=== PATIENT | male | born 1940 | race Caucasian/White ===

== ENCOUNTER 2016-09-21 08:34 | Emergency (ER) | payer OTHER ==
[2016-09-21] MEDS ORDERED: DUONEB (A & A) ONE (09:29)
[2016-09-21 09:35] LABS: BE 7.1 mmoll (-3.0-3.0); BLOOD TYPE ARTERIAL; DRAW SITE R RADIAL; METHB 0.9 % (0.0-1.5); O2(CT) 16.6 mL/dL (15.0-23.0); PO2(98.6) 89 mmHg (60-100); SAMPLE BLOOD; SAO2 98.2 % (95.0-100.0); THB 12.3 g/dL (11.5-17.4)
[2016-09-21 09:39] LABS: ALLEN TEST YES; MODALITY CANNULA; PCO2(98.6) 54 mmHg (35-45)
[2016-09-21] MEDS ORDERED: DUONEB (A & A) INH ONE (09:41)
--- NOTE | 2016-09-21 09:54 | PROVIDER DOCUMENTATION ---
HPI-Respiratory General - General Source: patient, family () - History of Present Illness-Resp Quality of Pain: reports: aching Severity in ED: reports: mild Onset/Duration: reports: 24 hours ago Timing: reports: still present, getting worse Exposure: reports: unknown cause Cough Quality/Degree: reports: moderate Episode Frequency: occasional episodes Current Respiratory Medication Therapy: Initiated see nurses note Modifying Factors: improves with: nothing Associated Symptoms: reports: cough, shortness of breath, wheezing. denies: chest pain/soreness, dizziness, earache, facial pain, fever/chills, flu-like symptoms, headache, heart racing, hurts to breathe, hyperventilating, lightheadedness, muscle/bodyaches, nasal congestion, nasal drainage, sinus pain , short of breath, sore throat, sweaty Similar Symptoms Previously?: Yes Recently seen or treated by another doctor?: No <Kellen Lewis - Last Filed: 09/21/16 11:19> <Kuldip Tafoya - Last Filed: 09/21/16 11:24> - General Chief Complaint: Shortness of Breath Stated Complaint: SOB/COUGH Time Seen by Provider: 09/21/16 09:19 Allergies/Adverse Reactions: Patient Allergies Allergy/AdvReac Type Severity Reaction Status Date / Time Penicillins Allergy Mild RASH Verified 06/21/16 05:45 Home Medications: Home Medication List Medication Instructions Recorded Confirmed Last Taken Type PRAVAstatin [Pravachol] 40 mg PO QHS 11/18/12 05/22/16 1 Day Ago History Albuterol Sulfate [Proair Hfa] 8.5 gm IH Q4H 01/23/13 05/22/16 1 Day Ago History Allopurinol 100 mg PO DAILY 07/05/15 05/22/16 1 Day Ago History Apixaban [Eliquis] 2.5 mg PO BID 07/05/15 05/22/16 1 Day Ago History Atenolol [Tenormin] 50 mg PO BID 05/16/16 05/22/16 1 Day Ago History Glipizide 10 mg PO BID 05/16/16 05/22/16 1 Day Ago History Lisinopril/Hydrochlorothiazide 1 each PO DAILY 05/16/16 05/22/16 1 Day Ago History [Lisinopril-Hctz 20-25 mg Tab] Metformin HCl 1 tab PO BID 05/16/16 05/22/16 1 Day Ago History Nitroglycerin Sl [Nitroglycerin] 1 tab SL PRN PRN MDD 3 05/16/16 05/22/16 Unknown History Sitagliptin Phosphate [Januvia] 100 mg PO DAILY 05/16/16 05/22/16 1 Day Ago History Albuterol 2.5MG/Ipratrop 0.5MG 3 ml INH RTQ4H #0 neb 05/24/16 1 Day Ago Rx [Duoneb (A & A)] Azithromycin [Zithromax Z-Joe] 250 mg PO DIRECTED #1 pkg 06/21/16 Unknown Rx Hydrocodone/APAP 7.5 mg/325 mg 1 tab PO Q8H 06/21/16 06/21/16 1 Day Ago History [Barton-7.5] Azithromycin [Zithromax Z-Joe] 250 mg PO DIRECTED #1 pkg 09/21/16 Unknown Rx Guaifenesin/Codeine [Robitussin-AC] 10 ml PO Q4H PRN PRN #8 oz 09/21/16 Unknown Rx - History of Present Illness-Resp Nature of Presenting Problem: Pt is 76 y/o M presents to the ED with SOB. Pt states prior SOB but it has worsened since yesterday. Pt denies F. Pt states hx of lung cancer and COPD. Pt states home O2 and nebs. Pt states cough. (Kellen Lewis) Review of Systems - Adult - REVIEW OF SYSTEMS - ADULT Constitutional: denies: chills, fever Eyes: denies: blurred vision, double vision Ears, Nose, Mouth & Throat: denies: ear pain, nose pain, mouth swelling, throat pain Cardiovascular: denies: chest pain, heart murmur, irregular heart rate Respiratory: reports: cough, shortness of breath, wheezing Gastrointestinal: denies: abdominal pain, diarrhea, nausea, vomiting Genitourinary: denies: dysuria, hematuria Musculoskeletal: denies: bone pain, joint pain, neck pain Integumentary: denies: hives, itching Neurological: denies: dizziness/vertigo, headache/migraines Psychiatric: reports: no symptoms reported Endocrine: reports: no symptoms reported Hematologic/Lymphatic: reports: no symptoms reported Allergic/Immunologic: reports: no symptoms reported All Other Systems: Reviewed and Negative <Betty Lewisomi - Last Filed: 09/21/16 11:19> Past History - Adult - PAST MEDICAL HISTORY-ADULT Review of Records: reports: Nursing Assessment Review, Medications Reviewed, Social history reviewed & non-contributory. Major Childhood Illnesses: reports: denies history Cardiovascular: reports: A-Fib, HTN, hyperlipidemia Respiratory: reports: asthma, COPD, cancer (lung cancer) Gastrointestinal: reports: denies history Obstetrical/Gynecological: reports: denies history Genitourinary: reports: denies history Musculoskeletal: reports: denies history Neurological: reports: denies history Endocrine/Immune: reports: Diabetes Other Conditions: reports: denies history - PRIOR SURGERIES/PROCEDURES Surgical/Procedure History: reports: CABG (x3), cholecystectomy - IMMUNIZATION STATUS Childhood Immunizations: See Nurse Assessment Flu Vaccine: See Nurse Assessment - FAMILY HISTORY Family History: reviewed, not pertinent - SOCIAL HISTORY Smoking: quit greater than 1 year, cigarettes Substance Use: denies Living Situation: family <Betty Lewisomi - Last Filed: 09/21/16 11:19> Physical Exam-General - PHYSICAL EXAM-ADULT Initial Vital Signs Reviewed: Yes - CONSTITUTIONAL General Appearance: appears well, alert, mild distress - EYES Eyes: PERRL/EOMI, pink conjunctivae, fundi clear, no AV nicking - HEAD, EARS, NOSE, MOUTH & THROAT HENMT: normocephalic/atraumatic, moist mucous membranes, normal ENT inspection, TMs normal, pharynx normal - NECK Neck: non-tender, full range of motion, supple, normal inspection - RESPIRATORY Respiratory: chest non-tender, no pleuratic chest pain, no respiratory distress , no accessory muscle use, wheezing, increased rate - CARDIOVASCULAR Cardiovascular: normal peripheral pulses, regular rate, rhythm, no edema, no gallop, no JVD, no murmur - GASTROINTESTINAL (ABDOMEN) Abdominal Exam: normal bowel sounds, non tender, soft, no organomegaly, no pulsatile mass, distended - LYMPHATIC Lymphatic: no adenopathy - MUSCULOSKELETAL Back Exam: normal inspection, no CVA tenderness, no vertebral tenderness Extremity: normal range of motion, non-tender, no calf tenderness, normal capillary refill, pedal edema (bilateral) - SKIN Integumentary: normal color, normal turgor, warm/dry, other (psoriasis) - NEUROLOGIC Neurologic: grossly normal - PSYCHIATRIC Psych/Mental Status: normal mood/affect, oriented x 3 <Kellen Lewis - Last Filed: 09/21/16 11:19> Progress - XRAY 1 XRAY: Bilateral XRAY Study: Chest Impression: Abnormal XRAY Interpretation: improved cmg and edema since 06-21-16 <Kellen Lewis - Last Filed: 09/21/16 11:19> <Kuldip Tafoya - Last Filed: 09/21/16 11:24> - PLAN OF CARE/RESULTS Progress/Plan/Lab Results: Laboratory Tests 09/21/16 09:19 Specimen Type ARTERIAL Sample Site R RADIAL pH 7.40 pCO2 54 H* pO2 89 HCO3 30.4 H Base Excess 7.1 H Oxyhemoglobin 95.3 ABG O2 Sat (Calculated) 16.6 ABG O2 Saturation 98.2 ABG Carboxyhemoglobin 2.10 ABG Methemoglobin 0.9 Sam Test YES A-a O2 Difference 43.0 Total Hemoglobin 12.3 Lactate 3.50 H Liter Flow 2.0 Blood Gas Modality CANNULA FiO2 % 28.0 Orders Category Date Time Status CHEST-2 VIEWS [RAD] Stat Exams 09/21/16 09:21 Ordered ABG [RESP] Routine Lab 09/21/16 09:19 Completed CBC WITH DIFF [HEME] Stat Lab 09/21/16 09:19 Ordered CK PROFILE [SP CHEM] Stat Lab 09/21/16 09:21 Ordered COMPREHENSIVE METABOLIC PANEL [CHEM] Stat Lab 09/21/16 09:20 Ordered PRO B-NATRIURETIC PEPTIDE Stat Lab 09/21/16 09:21 Ordered TROPONIN T Stat Lab 09/21/16 09:20 Ordered Albuterol 2.5MG/Ipratrop 0.5MG [Duoneb (A & A)] Med 09/21/16 09:29 Discontinued 9 ml .ROUTE .STK-MED ONE Albuterol 2.5MG/Ipratrop 0.5MG [Duoneb (A & A)] Med 09/21/16 09:41 Discontinued 9 ml INH NOW ONE Aerosol Treatments Stat Oth 09/21/16 09:41 Completed Vital Signs - 24 hr 09/21/16 09/21/16 08:44 09:40 Pulse Rate 74 87 Respiratory 18 20 Rate Blood Pressure 121/58 O2 Sat by Pulse 95 Oximetry Laboratory Tests 09/21/16 09/21/16 09/21/16 09:19 10:09 10:09 WBC 3.96 L RBC 3.86 L Hgb 12.4 L Hct 37.5 L MCV 97.2 MCH 32.1 H MCHC 33.1 RDW Std Deviation 14.0 Plt Count 95 L MPV 11.8 H Immature Gran % (Auto) 0.3 Neut % (Auto) 62.8 Lymph % (Auto) 17.4 L Jackson % (Auto) 17.2 H Eos % (Auto) 1.8 Baso % (Auto) 0.5 Immature Gran # (Auto) 0.01 Neut # (Auto) 2.49 Lymph # (Auto) 0.69 L Jackson # (Auto) 0.68 H Eos # (Auto) 0.07 Baso # (Auto) 0.02 Specimen Type ARTERIAL Sample Site R RADIAL pH 7.40 pCO2 54 H* pO2 89 HCO3 30.4 H Base Excess 7.1 H Oxyhemoglobin 95.3 ABG O2 Sat (Calculated) 16.6 ABG O2 Saturation 98.2 ABG Carboxyhemoglobin 2.10 ABG Methemoglobin 0.9 Sam Test YES A-a O2 Difference 43.0 Total Hemoglobin 12.3 Lactate 3.50 H Liter Flow 2.0 Blood Gas Modality CANNULA FiO2 % 28.0 Sodium 137 Potassium 3.7 Chloride 98 Carbon Dioxide 28 Anion Gap 11 BUN 15 Creatinine 0.7 Estimated GFR/1.73 m2 > 60 BUN/Creatinine Ratio 21 Glucose 226 H Calculated Osmolality 282 Calcium 9.0 Total Bilirubin 0.50 AST 53 H ALT 28 Alkaline Phosphatase 89 Creatine Kinase Troponin T Iec-D-Nmdyjegafho Pept Total Protein 6.8 Albumin 3.6 Globulin 3.0 Albumin/Globulin Ratio 1.0 09/21/16 09/21/16 09/21/16 10:09 10:09 10:09 WBC RBC Hgb Hct MCV MCH MCHC RDW Std Deviation Plt Count MPV Immature Gran % (Auto) Neut % (Auto) Lymph % (Auto) Jackson % (Auto) Eos % (Auto) Baso % (Auto) Immature Gran # (Auto) Neut # (Auto) Lymph # (Auto) Jackson # (Auto) Eos # (Auto) Baso # (Auto) Specimen Type Sample Site pH pCO2 pO2 HCO3 Base Excess Oxyhemoglobin ABG O2 Sat (Calculated) ABG O2 Saturation ABG Carboxyhemoglobin ABG Methemoglobin Sam Test A-a O2 Difference Total Hemoglobin Lactate Liter Flow Blood Gas Modality FiO2 % Sodium Potassium Chloride Carbon Dioxide Anion Gap BUN Creatinine Estimated GFR/1.73 m2 BUN/Creatinine Ratio Glucose Calculated Osmolality Calcium Total Bilirubin AST ALT Alkaline Phosphatase Creatine Kinase 68 Troponin T < 0.010 Pje-K-Lsuntpjrsfb Pept 125 Total Protein Albumin Globulin Albumin/Globulin Ratio (Kellen Lewis) Departure <Kellen Lewis - Last Filed: 09/21/16 11:19> - Departure Time of Disposition Order: 11:23 Certified Medical Emergency: Emergent <Kuldip Tafoya - Last Filed: 09/21/16 11:24> - Departure DIAGNOSIS: COPD (chronic obstructive pulmonary disease) Qualifiers: COPD type: chronic bronchitis Chronic bronchitis type: simple Qualified Code(s) : J41.0 - Simple chronic bronchitis Disposition: HOME 01 Condition: Stable Additional Instructions: ED Follow Up Instructions: You have been treated by a care provider in the Emergency Department. These instructions are being provided to you so you can have an understanding of how to care for yourself upon discharge. Upon discharge from the Emergency Department, you are responsible for making arrangements for follow-up care by a physician of your choice. Take all prescribed medications as directed. Return to the Emergency Department immediately for any new or worsening symptoms. You may call the Physician Referral phone number at [phone] to obtain a list of Physicians who are taking new patients. Prescriptions: Guaifenesin/Codeine [Robitussin-AC] 10 ml PO Q4H PRN PRN #8 oz PRN Reason: Cough Azithromycin [Zithromax Z-Joe] 250 mg PO DIRECTED #1 pkg Referrals: Marya Longoria MD [Primary Care Provider] - Attestation - Scribe Verification/Attestation Scribe:: Kellen Lewis Acting as Scribe for:: Kuldip Tafoya Scribe documention review:: This chart was documented by a scribe and accurately reflects the service the provider performed and the decisions made by the provider. <Kellen Lewis - Last Filed: 09/21/16 11:19> Physician Attestation
[2016-09-21 10:11] LABS: MANUAL DIFF NEEDED? NO
[2016-09-21 10:20] LABS: BASO% 0.5 % (0.0-0.8); EOS# 0.07 X1000 (0.0-0.7); EOS% 1.8 % (0.0-10.0); HEMATOCRIT 37.5 % (42.0-52.0); HEMOGLOBIN 12.4 g/dL (14.0-18.0); IMM GRAN# 0.01 X1000 (0.0-0.04); IMM GRAN% 0.3 % (0.0-0.5); LYMPH# 0.69 X1000 (1.2-3.4); LYMPH% 17.4 % (20.5-51.1); MCH 32.1 PG (27-31); MCHC 33.1 g/dL (33-37); MCV 97.2 FL (81-99); MONO# 0.68 X1000 (0.11-0.59); MONO% 17.2 % (1.7-9.3); MPV 11.8 FL (7.4-10.4); NEUT% 62.8 % (42.2-75.2); PLT 95 X1000 (130-400); RBC 3.86 XMIL (4.7-6.1)
[2016-09-21 10:34] LABS: AGAP 11; ALBUMIN 3.6 g/dL (3.5-5.0); ALKALINE PHOSPHATASE 89 U/L (32-122); BUN 15 mg/dL (8-22); CHLORIDE 98 mmol/L (98-107); COSMO 282; GOT 53 U/L (10-34); GPT 28 U/L (10-44); POTASSIUM 3.7 mmol/L (3.5-5.1); SODIUM 137 mmol/L (136-145); TCO2 28 mmol/L (25-35); TOTAL PROTEIN 6.8 g/dL (6.3-8.3)
[2016-09-21 11:51] VITALS: BP 114/48
--- NOTE | 2016-09-21 12:06 | Diag Imaging Result Document ---
PROCEDURE NAME: CHEST-2 VIEWS - 09/21/2016 TWO VIEWS OF THE CHEST: FINDINGS: There appears to be some improvement in the cardiomegaly and pulmonary edema, which was present on 06/21/2016. There is still some fibrotic appearing opacity present in the left upper lobe. Impression: Improved pulmonary edema. [facility]
== END 2016-09-21 11:50 | disposition home or self-care (01) ==
LOC: P.ED 08:34
DX: J41.0 Simple chronic bronchitis (principal); R06.02 Shortness of breath; R05 Cough; R06.2 Wheezing; I48.91 Unspecified atrial fibrillation; I10 Essential (primary) hypertension; E78.5 Hyperlipidemia, unspecified; Z85.118 Personal history of other malignant neoplasm of bronchus and lung; Z79.899 Other long term (current) drug therapy; E11.9 Type 2 diabetes mellitus without complications; Z95.1 Presence of aortocoronary bypass graft; Z87.891 Personal history of nicotine dependence; L40.9 Psoriasis, unspecified; Z79.01 Long term (current) use of anticoagulants
CPT/HCPCS: 36415; 71020; 80053; 82550; 82805; 83880; 84484; 85025; 94640; 99283

== ENCOUNTER 2016-09-22 19:45 | Emergency (ER) | payer OTHER ==
[2016-09-22 19:49] VITALS: BP 208/118
[2016-09-22] MEDS ORDERED: ASPIRIN PO STA (20:06)
--- NOTE | 2016-09-22 21:16 | ED EKG INTERP ---
EKG Interpretation - EKG Time of EKG reading by physician:: 21:01 EKG Read and Signed by:: Connor Quintana EKG Interpretation (*Must complete 3 of following elements*): Abnormal Rate: 115 Rhythm: SINUS TACHYCARDIA W/ SHORT CT Homer: left QRS: LVH (WITH REPOLARIZATION ABNORMALITY) CT Interval: shortened Comments: INFERIOR INFARCT
--- NOTE | 2016-09-22 22:04 | PROVIDER DOCUMENTATION ---
HPI-Respiratory General - General Chief Complaint: Shortness of Breath Stated Complaint: SOB Time Seen by Provider: 09/22/16 20:06 Source: patient Allergies/Adverse Reactions: Patient Allergies Allergy/AdvReac Type Severity Reaction Status Date / Time Penicillins Allergy Mild RASH Verified 09/22/16 19:49 Home Medications: Home Medication List Medication Instructions Recorded Confirmed Last Taken Type PRAVAstatin [Pravachol] 40 mg PO QHS 11/18/12 05/22/16 1 Day Ago History Albuterol Sulfate [Proair Hfa] 8.5 gm IH Q4H 01/23/13 05/22/16 1 Day Ago History Allopurinol 100 mg PO DAILY 07/05/15 05/22/16 1 Day Ago History Apixaban [Eliquis] 2.5 mg PO BID 07/05/15 05/22/16 1 Day Ago History Atenolol [Tenormin] 50 mg PO BID 05/16/16 05/22/16 1 Day Ago History Glipizide 10 mg PO BID 05/16/16 05/22/16 1 Day Ago History Lisinopril/Hydrochlorothiazide 1 each PO DAILY 05/16/16 05/22/16 1 Day Ago History [Lisinopril-Hctz 20-25 mg Tab] Metformin HCl 1 tab PO BID 05/16/16 05/22/16 1 Day Ago History Nitroglycerin Sl [Nitroglycerin] 1 tab SL PRN PRN MDD 3 05/16/16 05/22/16 Unknown History Sitagliptin Phosphate [Januvia] 100 mg PO DAILY 05/16/16 05/22/16 1 Day Ago History Albuterol 2.5MG/Ipratrop 0.5MG 3 ml INH RTQ4H #0 neb 05/24/16 1 Day Ago Rx [Duoneb (A & A)] Azithromycin [Zithromax Z-Joe] 250 mg PO DIRECTED #1 pkg 06/21/16 Unknown Rx Hydrocodone/APAP 7.5 mg/325 mg 1 tab PO Q8H 06/21/16 06/21/16 1 Day Ago History [Nursery-7.5] Azithromycin [Zithromax Z-Joe] 250 mg PO DIRECTED #1 pkg 09/21/16 Unknown Rx Guaifenesin/Codeine [Robitussin-AC] 10 ml PO Q4H PRN PRN #8 oz 09/21/16 Unknown Rx Azithromycin [Zithromax Z-Joe] 250 mg PO DIRECTED #1 pkg 09/22/16 Unknown Rx Doxycycline Monohydrate 100 mg PO BID #20 tablet 09/22/16 Unknown Rx - History of Present Illness-Resp Nature of Presenting Problem: 76 YOWM WITH HX OF COPD AND CHF, PRESENTS TO ED WITH C/O PT STATES SOB FOR 3 DAYS NOW. PT STATES HE WAS SEEN IN THE ED YESTERDAY WITH SAME SX. PT STATES HE DIDN'T FEEL LIKE GETTING PRESCRIPTION OF STEROIDS FILLED. Quality of Pain: reports: none Onset/Duration: reports: 3 days ago Timing: reports: still present Cough Quality/Degree: reports: mild, dry cough Associated Symptoms: reports: short of breath Similar Symptoms Previously?: No Recently seen or treated by another doctor?: No Review of Systems - Adult - REVIEW OF SYSTEMS - ADULT Constitutional: reports: fever. denies: chills Eyes: reports: no symptoms reported Ears, Nose, Mouth & Throat: reports: no symptoms reported Cardiovascular: denies: chest pain, palpitations, syncope Respiratory: reports: shortness of breath, wheezing. denies: cough Gastrointestinal: denies: abdominal pain, diarrhea, nausea, vomiting Genitourinary: reports: no symptoms reported Musculoskeletal: denies: back pain, neck pain Integumentary: reports: no symptoms reported Neurological: denies: dizziness/vertigo, headache/migraines, syncope Psychiatric: reports: no symptoms reported Endocrine: reports: no symptoms reported Hematologic/Lymphatic: reports: no symptoms reported Allergic/Immunologic: reports: no symptoms reported All Other Systems: Reviewed and Negative Past History - Adult - PAST MEDICAL HISTORY-ADULT Review of Records: reports: Nursing Assessment Review, Medications Reviewed Cardiovascular: reports: A-Fib, HTN, hyperlipidemia Respiratory: reports: asthma, COPD, cancer (lung cancer) Endocrine/Immune: reports: Diabetes - PRIOR SURGERIES/PROCEDURES Surgical/Procedure History: reports: CABG (x3), cholecystectomy - IMMUNIZATION STATUS Childhood Immunizations: See Nurse Assessment Flu Vaccine: See Nurse Assessment - FAMILY HISTORY Family History: reviewed, not pertinent - SOCIAL HISTORY Smoking: quit less than 1 year, cigarettes Substance Use: denies Alcohol Use Frequency: never Living Situation: family Physical Exam-General - CONSTITUTIONAL General Appearance: alert, moderate distress - EYES Eyes: PERRL/EOMI, pink conjunctivae - HEAD, EARS, NOSE, MOUTH & THROAT HENMT: normocephalic/atraumatic, moist mucous membranes - NECK Neck: non-tender, full range of motion, supple - RESPIRATORY Respiratory: chest non-tender, wheezing - CARDIOVASCULAR Cardiovascular: normal peripheral pulses, tachycardia - GASTROINTESTINAL (ABDOMEN) Abdominal Exam: normal bowel sounds, non tender - LYMPHATIC Lymphatic: no adenopathy - MUSCULOSKELETAL Back Exam: normal inspection, no CVA tenderness, no vertebral tenderness Extremity: normal range of motion, non-tender - SKIN Integumentary: normal color, normal turgor, warm/dry - NEUROLOGIC Neurologic: grossly normal - PSYCHIATRIC Psych/Mental Status: oriented x 3 Progress - PLAN OF CARE/RESULTS Progress/Plan/Lab Results: Laboratory Tests 09/22/16 09/22/16 09/22/16 21:35 21:35 21:35 WBC RBC Hgb Hct MCV MCH MCHC RDW Std Deviation Plt Count MPV Immature Gran % (Auto) Neut % (Auto) Lymph % (Auto) Wilkinson % (Auto) Eos % (Auto) Baso % (Auto) Immature Gran # (Auto) Neut # (Auto) Lymph # (Auto) Wilkinson # (Auto) Eos # (Auto) Baso # (Auto) PT INR APTT (Factor Assay) Sodium 136 Potassium 3.8 Chloride 99 Carbon Dioxide 28 Anion Gap 9 BUN 17 Creatinine 0.8 Estimated GFR/1.73 m2 > 60 BUN/Creatinine Ratio 21 Glucose 219 H Calculated Osmolality 280 Calcium 9.2 Magnesium 1.8 Total Bilirubin 0.70 AST 54 H ALT 27 Alkaline Phosphatase 89 Creatine Kinase 88 Troponin T < 0.010 Bvu-Q-Syowubzzchj Pept 334 H Total Protein 7.0 Albumin 3.6 Globulin 3.0 Albumin/Globulin Ratio 1.0 09/22/16 09/22/16 21:35 21:35 WBC 6.68 RBC 3.99 L Hgb 12.5 L Hct 39.1 L MCV 98.0 MCH 31.3 H MCHC 32.0 L RDW Std Deviation 14.2 Plt Count 93 L MPV 11.9 H Immature Gran % (Auto) 0.3 Neut % (Auto) 78.6 H Lymph % (Auto) 7.2 L Wilkinson % (Auto) 13.5 H Eos % (Auto) 0.3 Baso % (Auto) 0.1 Immature Gran # (Auto) 0.02 Neut # (Auto) 5.25 Lymph # (Auto) 0.48 L Wilkinson # (Auto) 0.90 H Eos # (Auto) 0.02 Baso # (Auto) 0.01 PT 15.0 INR 1.15 APTT (Factor Assay) 36.1 Sodium Potassium Chloride Carbon Dioxide Anion Gap BUN Creatinine Estimated GFR/1.73 m2 BUN/Creatinine Ratio Glucose Calculated Osmolality Calcium Magnesium Total Bilirubin AST ALT Alkaline Phosphatase Creatine Kinase Troponin T Yab-S-Daqhicqcezn Pept Total Protein Albumin Globulin Albumin/Globulin Ratio Orders Category Date Time Status Cardiac Monitoring DIRECTED Care 09/22/16 20:06 Active Oxygen Therapy- ED Nursing DIRECTED Care 09/22/16 20:06 Active Saline Loc NOW Care 09/22/16 20:06 Active CHEST-2 VIEWS [RAD] Stat Exams 09/22/16 20:06 Taken CBC WITH ELECTRONIC DIFF [HEME] Stat Lab 09/22/16 21:35 Completed CK PROFILE [SP CHEM] Stat Lab 09/22/16 21:35 Completed COMPREHENSIVE METABOLIC PANEL [CHEM] Stat Lab 09/22/16 21:35 Completed MAGNESIUM [CHEM] Stat Lab 09/22/16 21:35 Completed PRO B-NATRIURETIC PEPTIDE Stat Lab 09/22/16 21:[address] Com[address]IME WITH INR PL [COAG] Stat Lab 09/22/16 21:[address] [COAG] Stat Lab 09/22/16 21:35 Completed TROPONIN T Stat Lab 09/22/16 21:35 Completed Aspirin Med 09/22/16 20:06 Discontinued 325 mg PO STAT STA EKG [EKG] Stat Ther 09/22/16 20:06 Ordered Vital Signs - 24 hr 09/22/16 19:46 Temperature 100.8 F H Pulse Rate 116 H Respiratory 22 Rate Blood Pressure 208/118 O2 Sat by Pulse 96 Oximetry - XRAY 1 XRAY: Bilateral XRAY Study: Chest XRAY Interpretation: COPD. MILD CARDIOMEGALY Departure - Departure Time of Disposition Order: 22:38 DIAGNOSIS: COPD (chronic obstructive pulmonary disease) Qualifiers: COPD type: unspecified COPD Qualified Code(s): J44.9 - Chronic obstructive pulmonary disease, unspecified CHF (congestive heart failure) Qualifiers: Congestive heart failure type: unspecified congestive heart failure type Congestive heart failure chronicity: unspecified congestive heart failure chronicity Qualified Code(s): I50.9 - Heart failure, unspecified Disposition: HOME 01 Certified Medical Emergency: Emergent Condition: Stable Additional Instructions: ED Follow Up Instructions: You have been treated by a care provider in the Emergency Department. These instructions are being provided to you so you can have an understanding of how to care for yourself upon discharge. Upon discharge from the Emergency Department, you are responsible for making arrangements for follow-up care by a physician of your choice. Take all prescribed medications as directed. Return to the Emergency Department immediately for any new or worsening symptoms. You may call the Physician Referral phone number at [phone] to obtain a list of Physicians who are taking new patients. Prescriptions: Doxycycline Monohydrate 100 mg PO BID #20 tablet Azithromycin [Zithromax Z-Joe] 250 mg PO DIRECTED #1 pkg
[2016-09-22 22:10] LABS: AGAP 9; ALBUMIN 3.6 g/dL (3.5-5.0); ALKALINE PHOSPHATASE 89 U/L (32-122); BUN 17 mg/dL (8-22); CALCIUM 9.2 mg/dL (8.8-10.2); CHLORIDE 99 mmol/L (98-107); CK PROFILE 88 U/L (24-204); COSMO 280; GOT 54 U/L (10-34); GPT 27 U/L (10-44); MAGNESIUM 1.8 mg/dL (1.5-2.7); POTASSIUM 3.8 mmol/L (3.5-5.1); SODIUM 136 mmol/L (136-145); TCO2 28 mmol/L (25-35)
[2016-09-22 22:21] LABS: BASO% 0.1 % (0.0-0.8); EOS# 0.02 X1000 (0.0-0.7); EOS% 0.3 % (0.0-10.0); HEMATOCRIT 39.1 % (42.0-52.0); HEMOGLOBIN 12.5 g/dL (14.0-18.0); IMM GRAN# 0.02 X1000 (0.0-0.04); IMM GRAN% 0.3 % (0.0-0.5); LYMPH# 0.48 X1000 (1.2-3.4); LYMPH% 7.2 % (20.5-51.1); MCH 31.3 PG (27-31); MONO% 13.5 % (1.7-9.3); MPV 11.9 FL (7.4-10.4); NEUT% 78.6 % (42.2-75.2); PLT 93 X1000 (130-400); RBC 3.99 XMIL (4.7-6.1)
[2016-09-22 22:23] LABS: MANUAL DIFF NEEDED? NO
[2016-09-22 22:25] LABS: INR 1.15 (0.86-1.15); PTT PL 36.1 Seconds (22.6-43.9)
--- NOTE | 2016-09-23 06:08 | EKG Report ---
Test Performed on : 09/22/2016 9:00:03 PM Test Reason : CHEST PAIN Blood Pressure : / mmHG Vent. Rate : 115 BPM Atrial Rate : 115 BPM P-R Int : 100 ms QRS Dur : 088 ms QT Int : 334 ms P-R-T Axes : 000 -44 129 degrees QTc Int : 462 ms Sinus tachycardia. 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
--- NOTE | 2016-09-23 08:12 | Diag Imaging Result Document ---
PROCEDURE NAME: CHEST-2 VIEWS - 09/22/2016 FRONTAL AND LATERAL CHEST, TWO VIEWS: COMPARISON: Compared to 09/21/2016. FINDINGS: There are sternal wires and surgical clips. The heart is mildly enlarged. The lungs are well expanded. No pleural effusions. Atelectasis versus scarring of the mid left lung. Left hilar prominence is similar. I believe there are small basilar infiltrates. Vasculature is similar to the prior exam. IMPRESSION: Slight worsening of the basilar infiltrates.
== END 2016-09-22 22:49 | disposition home or self-care (01) ==
LOC: P.ED 19:45
DX: J44.9 Chronic obstructive pulmonary disease, unspecified (principal); I50.9 Heart failure, unspecified; R06.02 Shortness of breath; R06.2 Wheezing; R05 Cough; I51.7 Cardiomegaly; I48.91 Unspecified atrial fibrillation; R00.0 Tachycardia, unspecified; Z79.899 Other long term (current) drug therapy; R50.9 Fever, unspecified; I10 Essential (primary) hypertension; E78.5 Hyperlipidemia, unspecified; Z85.118 Personal history of other malignant neoplasm of bronchus and lung; E11.9 Type 2 diabetes mellitus without complications; Z95.1 Presence of aortocoronary bypass graft; Z87.891 Personal history of nicotine dependence; R94.31 Abnormal electrocardiogram [ECG] [EKG]; Z79.01 Long term (current) use of anticoagulants
CPT/HCPCS: 71020; 80053; 82550; 83735; 83880; 84484; 85025; 85610; 85730; 93005; 99284; P9612

== ENCOUNTER 2016-09-24 06:14 | Inpatient (IN) | payer OTHER ==
[2016-09-24] MEDS ORDERED: NS 500 ML IV ONE (06:43)
[2016-09-24] MEDS ORDERED: DUONEB (A & A) INH ONE (06:44)
[2016-09-24] MEDS ORDERED: NS 500 ML ONE (06:46)
--- NOTE | 2016-09-24 06:51 | PROVIDER DOCUMENTATION ---
HPI-General Adult - General Source: patient - History of Present Illness -Gen Adult Nature of Presenting Problems: This patient has long standing COPD and comes in for sob. He has been here the last two days for treatment without benefit. He is very sob and on 02 at home of 3 liters. Location of Pain/Injury: reports: none Severity: reports: severe Onset/Duration: reports: 1 week ago Timing: reports: still present, getting worse Context/Activities at Onset: reports: light activity Modifying Factors: improves with: nothing Associated Symptoms: reports: cough, fatigue, shortness of breath, weakness, trouble walking. denies: chest pain, diarrhea, fever/chills, sinus congestion/ drainage, nausea Similar Symptoms Previously?: Yes Recently seen or treated by another doctor?: Yes <Miki Valenzuela - Last Filed: 09/24/16 06:45> <Som Velazquez - Last Filed: 10/01/16 12:08> - General Chief Complaint: Shortness of Breath Stated Complaint: sob Time Seen by Provider: 09/24/16 06:36 Allergies/Adverse Reactions: Patient Allergies Allergy/AdvReac Type Severity Reaction Status Date / Time Penicillins Allergy Mild RASH Verified 09/24/16 06:19 Home Medications: Home Medication List Medication Instructions Recorded Confirmed Last Taken Type PRAVAstatin [Pravachol] 40 mg PO QHS 11/18/12 09/24/16 09/23/16 History Albuterol Sulfate [Proair Hfa] 8.5 gm IH Q4H 01/23/13 09/24/16 09/23/16 History Allopurinol 100 mg PO DAILY 07/05/15 09/24/16 09/24/16 History Apixaban [Eliquis] 2.5 mg PO BID 07/05/15 09/24/16 09/23/16 History Atenolol [Tenormin] 50 mg PO BID 05/16/16 09/24/16 1 Day Ago History Glipizide 10 mg PO BID 05/16/16 09/24/16 09/23/16 History Lisinopril/Hydrochlorothiazide 25 mg PO DAILY 05/16/16 09/24/16 09/23/16 History [Lisinopril-Hctz 20-25 mg Tab] Metformin HCl 1 tab PO BID 05/16/16 09/24/1617 History Nitroglycerin Sl [Nitroglycerin] 1 tab SL PRN PRN MDD 3 05/16/16 09/24/16 History Sitagliptin Phosphate [Januvia] 100 mg PO DAILY 05/16/16 09/24/16 09/23/16 History Albuterol 2.5MG/Ipratrop 0.5MG 3 ml INH RTQ4H #0 neb 05/24/16 09/24/16 09/23/16 Rx [Duoneb (A & A)] Azithromycin [Zithromax Z-Joe] 250 mg PO DIRECTED #1 pkg 09/21/16 09/24/16 Unknown Rx Guaifenesin/Codeine [Robitussin-AC] 10 ml PO Q4H PRN PRN #8 oz 09/21/16 Unknown Rx Aspirin 81 mg PO DAILY 09/24/16 09/24/16 09/23/16 History Furosemide [Lasix] 20 mg PO DAILY 09/24/16 09/24/16 09/13/16 History CefDINIR [Omnicef] 300 mg PO BID #14 capsule 09/28/16 Unknown Rx Hydrocodone/APAP 7.5 mg/325 mg 1 tab PO Q8H #15 tablet 09/28/16 Unknown Rx [[place]-7.5] Methylprednisolone [Medrol Dosepak] 4 mg PO DIRECTED #1 package 09/28/16 Unknown Rx Review of Systems - Adult - REVIEW OF SYSTEMS - ADULT Constitutional: reports: no symptoms reported Eyes: reports: no symptoms reported Ears, Nose, Mouth & Throat: reports: no symptoms reported Cardiovascular: reports: no symptoms reported Respiratory: reports: cough, dyspnea on exertion, shortness of breath, wheezing Gastrointestinal: reports: no symptoms reported Genitourinary: reports: no symptoms reported Musculoskeletal: reports: no symptoms reported Integumentary: reports: no symptoms reported Neurological: reports: no symptoms reported Psychiatric: reports: no symptoms reported Endocrine: reports: no symptoms reported Hematologic/Lymphatic: reports: no symptoms reported Allergic/Immunologic: reports: no symptoms reported All Other Systems: Reviewed and Negative <Miki Valenzuela - Last Filed: 09/24/16 06:45> Past History - Adult - PAST MEDICAL HISTORY-ADULT Review of Records: reports: Old Records Reviewed Major Childhood Illnesses: reports: denies history Cardiovascular: reports: A-Fib, HTN, hyperlipidemia Respiratory: reports: asthma, COPD, cancer (lung cancer) Gastrointestinal: reports: denies history Obstetrical/Gynecological: reports: denies history Genitourinary: reports: denies history Musculoskeletal: reports: denies history Neurological: reports: denies history Endocrine/Immune: reports: Diabetes Other Conditions: reports: denies history - PRIOR SURGERIES/PROCEDURES Surgical/Procedure History: reports: CABG (x3), cholecystectomy - IMMUNIZATION STATUS Childhood Immunizations: See Nurse Assessment Flu Vaccine: See Nurse Assessment - FAMILY HISTORY Family History: reviewed, not pertinent - SOCIAL HISTORY Smoking: quit greater than 1 year <Miki Valenzuela - Last Filed: 09/24/16 06:45> Physical Exam-General - PHYSICAL EXAM-ADULT Initial Vital Signs Reviewed: Yes - CONSTITUTIONAL General Appearance: moderate distress, obese - HEAD, EARS, NOSE, MOUTH & THROAT HENMT: normocephalic/atraumatic - RESPIRATORY Respiratory: decreased breath sounds, rhonchi, wheezing - CARDIOVASCULAR Cardiovascular: regular rate, rhythm - GASTROINTESTINAL (ABDOMEN) Abdominal Exam: soft, no organomegaly, no pulsatile mass. negative: guarding, rebound - MUSCULOSKELETAL Back Exam: normal inspection Extremity: pedal edema, other (chronic statsis changes in the lower legs) - SKIN Integumentary: normal color - NEUROLOGIC Neurologic: grossly normal - PSYCHIATRIC Psych/Mental Status: oriented x 3 <Miki Valenzuela - Last Filed: 09/24/16 06:45> Progress - PLAN OF CARE/RESULTS Progress/Plan/Lab Results: Vital Signs Temp Pulse Resp BP Pulse Ox 09/28/16 07:58 90 20 92 L 09/28/16 07:16 97.5 F L 82 20 168/58 95 09/28/16 04:00 97.5 F L 75 18 125/56 09/28/16 00:00 97.5 F L 81 20 122/46 09/27/16 20:00 97.7 F 84 20 143/52 96 09/27/16 19:53 80 16 95 09/27/16 15:30 94 H 12 09/27/16 15:00 80 20 152/63 98 09/27/16 11:04 97.7 F 107 H 20 168/77 98 09/27/16 10:38 96 H 18 09/27/16 07:50 85 20 98 09/27/16 07:23 97.4 F L 86 20 150/70 98 09/27/16 04:25 80 23 09/27/16 04:02 98.1 F 80 23 124/55 99 09/27/16 00:26 97.8 F 81 22 107/46 96 09/27/16 00:13 79 23 09/26/16 20:35 97.6 F 79 23 119/46 98 09/26/16 19:52 91 H 20 94 L 09/26/16 16:00 97.5 F L 91 H 20 143/63 96 09/26/16 15:28 79 18 97 09/26/16 12:02 74 20 97 09/26/16 12:00 97.6 F 92 H 20 132/60 98 09/26/16 08:00 97.4 F L 96 H 20 145/52 100 09/26/16 07:31 97 H 20 97 09/26/16 04:00 97.3 F L 83 20 118/59 09/26/16 00:00 97.4 F L 90 20 121/47 09/25/16 20:00 97.5 F L 77 20 109/44 95 09/25/16 19:13 76 18 93 L 09/25/16 15:32 97.6 F 75 20 114/46 97 09/25/16 15:24 74 20 96 09/25/16 12:25 68 18 97 09/25/16 12:00 97.6 F 62 20 96 09/25/16 08:00 98.1 F 74 20 135/44 97 09/25/16 07:40 74 18 94 L 09/25/16 04:00 98.7 F 72 18 130/62 94 L 09/25/16 00:00 97.8 F 73 18 125/52 94 L 09/24/16 20:00 97.9 F 118 H 18 127/61 94 L 09/24/16 19:07 119 H 20 91 L 09/24/16 16:00 98.7 F 122 H 16 135/57 90 L 09/24/16 14:38 120 H 22 92 L 09/24/16 11:41 97.8 F 89 20 135/60 89 L 09/24/16 10:28 97.9 F 116 H 24 140/061 96 09/24/16 06:52 118 H 27 H 126/55 95 09/24/16 06:50 119 H 18 95 09/24/16 06:32 119 H 26 H 123/88 97 09/24/16 06:15 99.4 F 119 H 24 150/92 98 Penicillins Allergy (Mild, Verified 09/24/16 06:19) RASH PRAVAstatin [Pravachol] 40 mg PO QHS 11/18/12 Albuterol Sulfate [Proair Hfa] 8.5 gm IH Q4H 01/23/13 Allopurinol 100 mg PO DAILY 07/05/15 Apixaban [Eliquis] 2.5 mg PO BID 07/05/15 Atenolol [Tenormin] 50 mg PO BID 05/16/16 Glipizide 10 mg PO BID 05/16/16 Lisinopril/Hydrochlorothiazide [Lisinopril-Hctz 20-25 mg Tab] 25 mg PO DAILY 08/30 Metformin HCl 1 tab PO BID 05/16/16 Nitroglycerin Sl [Nitroglycerin] 1 tab SL PRN PRN MDD 3 05/16/16 Sitagliptin Phosphate [Januvia] 100 mg PO DAILY 05/16/16 Albuterol 2.5MG/Ipratrop 0.5MG [Duoneb (A & A)] 3 ml INH RTQ4H #0 neb 05/24/16 Azithromycin [Zithromax Z-Joe] 250 mg PO DIRECTED #1 pkg 09/21/16 Guaifenesin/Codeine [Robitussin-AC] 10 ml PO Q4H PRN PRN #8 oz 09/21/16 Aspirin 81 mg PO DAILY 09/24/16 Furosemide [Lasix] 20 mg PO DAILY 09/24/16 CefDINIR [Omnicef] 300 mg PO BID #14 capsule 09/28/16 Hydrocodone/APAP 7.5 mg/325 mg [[place]-7.5] 1 tab PO Q8H #15 tablet 09/28/16 Methylprednisolone [Medrol Dosepak] 4 mg PO DIRECTED #1 package 09/28/16 MALIGNANT NEOPLASM OF UNSP PART OF UNSP BRONCHUS OR LUNG (09/24/16) ANEMIA, UNSPECIFIED (09/24/16) TYPE 2 DIABETES MELLITUS WITH HYPERGLYCEMIA (09/24/16) DEFICIENCY OF OTHER SPECIFIED B GROUP VITAMINS (09/24/16) MORBID (SEVERE) OBESITY DUE TO EXCESS CALORIES (09/24/16) PURE HYPERCHOLESTEROLEMIA, UNSPECIFIED (09/24/16) HYPERTENSIVE HEART DISEASE WITH HEART FAILURE (09/24/16) ATHSCL HEART DISEASE OF [place] CORONARY ARTERY W/O ANG PCTRS (09/24/16) ATHEROSCLEROSIS OF CABG W/O ANGINA PECTORIS (09/24/16) CHRONIC ATRIAL FIBRILLATION (09/24/16) HEART FAILURE, UNSPECIFIED (09/24/16) CHRONIC OBSTRUCTIVE PULMONARY DISEASE W (ACUTE) EXACERBATION (09/24/16) UNSPECIFIED ASTHMA, UNCOMPLICATED (09/24/16) PSORIASIS, UNSPECIFIED (09/24/16) GOUT, UNSPECIFIED (09/24/16) HYPOXEMIA (09/24/16) BODY MASS INDEX (BMI) 40.0-44.9, ADULT (09/24/16) CUSTOMER OPERATIONS REPRESENTATIVE (CURRENT) USE OF ANTICOAGULANTS (09/24/16) CUSTOMER OPERATIONS REPRESENTATIVE (CURRENT) USE OF ASPIRIN (09/24/16) CUSTOMER OPERATIONS REPRESENTATIVE (CURRENT) USE OF ORAL HYPOGLYCEMIC DRUGS (09/24/16) OTHER CUSTOMER OPERATIONS REPRESENTATIVE (CURRENT) DRUG THERAPY (09/24/16) FAMILY HISTORY OF MALIGNANT NEOPLASM, UNSPECIFIED (09/24/16) FAMILY HX OF ISCHEM HEART DIS AND OTH DIS OF THE CIRC SYS (09/24/16) PERSONAL HISTORY OF MALIGNANT NEOPLASM OF BRONCHUS AND LUNG (09/24/16) PERSONAL HISTORY OF NICOTINE DEPENDENCE (09/24/16) DEPENDENCE ON SUPPLEMENTAL OXYGEN (09/24/16) Orders Category Date Time Status Admit - [facility] Routine AdmDCTranf 09/24/16 10:18 Ordered Discharge Patient Routine AdmDCTranf 09/28/16 09:31 Ordered Activity - Strict Bedrest ORDERED Care 09/24/16 10:18 Active Call Admitting on Arrival AT ADMISSION Care 09/24/16 10:19 Completed Contraindications to Flu vacci [QM] AT DISCHARGE Care 09/24/16 12:10 Completed Daily Weights 0500 Care 09/25/16 03:37 Active Does patient desire to be vacc [QM] ONCE Care 09/24/16 12:10 Completed Fingerstick Blood Sugar [FSBS/Accucheck Result] AC + HS Care 09/24/16 16:18 Active IV Discontinuation ORDERED Care 09/28/16 09:31 Active Nursing- MD Consult Request ROUTINE Care 09/26/16 10:07 Completed Previous Flu Vaccine THIS SEAS [QM] ONCE Care 09/24/16 12:10 Completed Saline Loc DIRECTED Care 09/24/16 10:18 Completed Vital Signs Order ROUTINE Care 09/24/16 10:18 Completed Case Management Consult Routine Cons 09/24/16 12:10 Active Physician/Provider Consults Routine Cons 09/26/16 10:05 Ordered Social Service Consult Routine Cons 09/24/16 12:10 Active Diabetic Diet Diet 09/24/16 10:20 Completed CHEST-PORTABLE [RAD] Stat Exams 09/24/16 06:42 Completed A1C HGB W EST AVG GLUCOSE [CHEM] Routine Lab 09/25/16 05:45 Completed ABG [RESP] Routine Lab 09/24/16 08:15 Completed BASIC METABOLIC PANEL [CHEM] Routine Lab 09/25/16 05:45 Completed BLOOD CULTURE [BLDCUL] Stat Lab 09/24/16 06:50 Completed BNP [PRO B-NATRIURETIC PEPTIDE] Stat Lab 09/24/16 07:00 Completed CBC WITH DIFF [HEME] Routine Lab 09/25/16 05:45 Completed CBC WITH ELECTRONIC DIFF [HEME] Stat Lab 09/24/16 07:00 Completed CBC WITH NO DIFF [HEME] Routine Lab 09/27/16 05:40 Completed CK PROFILE [SP CHEM] Routine Lab 09/26/16 08:49 Completed CK PROFILE [SP CHEM] Timed Lab 09/26/16 11:00 Completed CK PROFILE [SP CHEM] Timed Lab 09/26/16 18:40 Completed CK PROFILE [SP CHEM] Urgent Lab 09/27/16 05:40 Completed CMP [COMPREHENSIVE METABOLIC PANEL] [CHEM] Stat Lab 09/24/16 07:00 Completed COMPREHENSIVE METABOLIC PANEL [CHEM] Routine Lab 09/27/16 05:40 Completed LIPID PROFILE W/CALC LDL [LIPIDS] Routine Lab 09/27/16 05:40 Completed MAGNESIUM [CHEM] Routine Lab 09/27/16 05:40 Completed TROPONIN T Routine Lab 09/26/16 08:49 Completed TROPONIN T Timed Lab 09/26/16 11:00 Completed TROPONIN T Timed Lab 09/26/16 18:40 Completed TROPONIN T Urgent Lab 09/27/16 05:[address] W/POSS RFLX CULT [URINALYSIS] Stat Lab 09/25/16 06:48 Completed 0.9% Sodium Chloride Inj [Ns] 100 ml Med 09/25/16 09:55 Discontinued .ROUTE As Directed 0.9% Sodium Chloride Inj [Ns] 500 ml Med 09/24/16 06:46 Discontinued .ROUTE As Directed 0.9% Sodium Chloride Inj [Ns] 500 ml Med 09/24/16 06:43 Discontinued IV 125 mls/hr 0.9% Sodium Chloride Inj [Ns] 500 ml Med 09/26/16 19:30 Discontinued IV As Directed Acetaminophen [Tylenol] Med 09/24/16 10:18 Discontinued 650 mg PO Q6H PRN PRN Albuterol 2.5MG/Ipratrop 0.5MG [Duoneb (A & A)] Med 09/24/16 06:44 Discontinued 3 ml INH NOW ONE Albuterol 2.5MG/Ipratrop 0.5MG [Duoneb (A & A)] Med 09/24/16 16:48 Discontinued 3 ml INH Q2H PRN PRN Albuterol 2.5MG/Ipratrop 0.5MG [Duoneb (A & A)] Med 09/24/16 15:30 Discontinued 3 ml INH RTQ4H Allopurinol [Zyloprim] Med 09/25/16 09:00 Discontinued 100 mg PO DAILY Apixaban [Eliquis] Med 09/24/16 21:00 Discontinued 2.5 mg PO BID Aspirin Med 09/25/16 09:00 Discontinued 81 mg PO DAILY Atenolol [Tenormin] Med 09/24/16 21:00 Discontinued 50 mg PO BID Azithromycin [Zithromax] Med 09/28/16 09:00 Discontinued 500 mg PO DAILY CefDINIR [Omnicef] Med 09/28/16 09:00 Discontinued 300 mg PO BID CefTRIAXONE 1 GM/NS [Rocephin 1 gm/Ns] 50 ml Med 09/24/16 10:17 Discontinued IV NOW CefTRIAXONE 1 GM/NS [Rocephin 1 gm/Ns] 50 ml Med 09/25/16 10:00 Discontinued IV Q24H Furosemide [Lasix] Med 09/25/16 09:00 Discontinued 20 mg PO DAILY Glipizide [Glucotrol] Med 09/24/16 21:00 Discontinued 10 mg PO BID Glipizide [Glucotrol] Med 09/25/16 08:00 Discontinued 10 mg PO BID CC Guaifenesin/Codeine [Robitussin-AC] Med 09/24/16 16:43 Discontinued 10 ml PO Q4H PRN PRN Hydrochlorothiazide Med 09/25/16 09:00 Discontinued 25 mg PO DAILY Hydrocodone/APAP 7.5 mg/325 mg [[place]-7.5] Med 09/24/16 08:39 Discontinued 1 each PO NOW ONE Hydrocodone/APAP 7.5 mg/325 mg [[place]-7.5] Med 09/24/16 16:45 Discontinued 1 each PO Q8H Hydromorphone [Dilaudid] Med 09/24/16 10:18 Discontinued 2 mg IM Q4H PRN PRN Insulin Lispro Dose ([place]) [Humalog Dose ([place])] Med 09/24/16 21:00 Discontinued See Protocol SUBQ 0700,1100,1600,2100 LISINOpril [Prinivil] Med 09/25/16 09:00 Discontinued 20 mg PO DAILY Metformin [Glucophage] Med 09/24/16 17:00 Discontinued 1,000 mg PO BID CC Methylprednisolone Sod Succ [Solu-Medrol] Med 09/27/16 13:00 Discontinued 40 mg IV Q12H Methylprednisolone Sod Succ [Solu-Medrol] Med 09/28/16 21:00 Discontinued 40 mg IV Q24H Methylprednisolone Sod Succ [Solu-Medrol] Med 09/25/16 09:00 Discontinued 40 mg IV Q8H Methylprednisolone Sod Succ [Solu-Medrol] Med 09/25/16 09:00 Discontinued 60 mg IV Q8H Methylprednisolone Sod Succ [Solu-Medrol] Med 09/24/16 16:30 Discontinued 80 mg IV Q8H Nitroglycerin Sl [Nitroglycerin] Med 09/24/16 16:43 Discontinued 0.4 mg SL PRN PRN Ondansetron [Zofran] Med 09/24/16 10:18 Discontinued 4 mg IV Q4H PRN PRN PRAVAstatin [Pravachol] Med 09/24/16 21:00 Discontinued 40 mg PO QHS Sitagliptin [Januvia] Med 09/25/16 09:00 Discontinued 100 mg PO DAILY Aerosol Treatments Routine Oth 09/24/16 06:45 Completed Aerosol Treatments Routine Oth 09/24/16 14:25 Completed Aerosol Treatments Routine Oth 09/24/16 16:48 Completed Aerosol Treatments Stat Oth 09/24/16 06:45 Completed Aerosol Treatments Stat Oth 09/24/16 14:25 Completed Aerosol Treatments Stat Oth 09/24/16 16:48 Completed O2 Per Protocol Routine Oth 09/24/16 16:24 Completed Oxygen Device Routine Oth 09/24/16 10:19 Completed EKG [EKG] Routine Ther 09/26/16 09:10 Draft EKG [EKG] Routine Ther 09/26/16 15:21 Draft EKG [EKG] Routine Ther 09/27/16 06:00 Draft Echo Spec/Color Dop W/O Contra [CV] Routine Ther 09/27/16 08:23 Completed Transfer/Admit Order [TRANSFER] Routine Transfer 09/24/16 10:17 Completed <Som Velazquez - Last Filed: 10/01/16 12:08> Departure <Miki Valenzuela - Last Filed: 09/24/16 06:45> - Departure Time of Disposition Order: 10:40 Certified Medical Emergency: Emergent <Som Velazquez - Last Filed: 10/01/16 12:08> - Departure DIAGNOSIS: COPD exacerbation Disposition: ADMITTED INPATIENT 09 Condition: Stable Attestation - Scribe Verification/Attestation Scribe:: Som Velazquez Acting as Scribe for:: Reza Rolle Scribe documention review:: This chart was documented by a scribe and accurately reflects the service the provider performed and the decisions made by the provider. <Som Velazquez - Last Filed: 10/01/16 12:08> Physician Attestation - Physician Attestation I, the provider, attest to the following statement:: Reza Rolle Physician documentation Attestation:: This documentation recorded by the scribe accurately reflects the service I personally performed and the decisions made by me. <Som Velazquez - Last Filed: 10/01/16 12:08>
[2016-09-24 07:20] LABS: BASO% 0.3 % (0.0-0.8); EOS# 0.01 X1000 (0.0-0.7); EOS% 0.2 % (0.0-10.0); HEMATOCRIT 37.5 % (42.0-52.0); IMM GRAN# 0.01 X1000 (0.0-0.04); IMM GRAN% 0.2 % (0.0-0.5); LYMPH# 0.69 X1000 (1.2-3.4); LYMPH% 10.6 % (20.5-51.1); MANUAL DIFF NEEDED? NO; MCH 32.2 PG (27-31); MCV 100.5 FL (81-99); MONO# 0.91 X1000 (0.11-0.59); MPV 11.7 FL (7.4-10.4); NEUT% 74.7 % (42.2-75.2); PLT 86 X1000 (130-400); RBC 3.73 XMIL (4.7-6.1)
[2016-09-24 07:31] LABS: AGAP 9; ALBUMIN 3.6 g/dL (3.5-5.0); ALKALINE PHOSPHATASE 85 U/L (32-122); BUN 17 mg/dL (8-22); CALCIUM 8.7 mg/dL (8.8-10.2); CHLORIDE 97 mmol/L (98-107); COSMO 279; GOT 46 U/L (10-34); GPT 21 U/L (10-44); POTASSIUM 4.4 mmol/L (3.5-5.1); SODIUM 136 mmol/L (136-145); TCO2 31 mmol/L (25-35); TOTAL PROTEIN 6.5 g/dL (6.3-8.3)
[2016-09-24 08:36] LABS: BLOOD TYPE ARTERIAL; DRAW SITE R RADIAL; METHB 1.3 % (0.0-1.5); O2(CT) 15.7 mL/dL (15.0-23.0); PO2(98.6) 76 mmHg (60-100); SAMPLE BLOOD; SAO2 97.1 % (95.0-100.0); THB 11.9 g/dL (11.5-17.4); pH(98.6) 7.37 (7.35-7.45)
[2016-09-24] MEDS ORDERED: NORCO-7.5 PO ONE (08:39)
[2016-09-24 08:40] LABS: MODALITY CANNULA; PCO2(98.6) 65 mmHg (35-45)
[2016-09-24 08:41] LABS: ALLEN TEST YES
--- NOTE | 2016-09-24 08:43 | Diag Imaging Result Document ---
PROCEDURE NAME: CHEST-PORTABLE - 09/24/2016 PORTABLE CHEST: Compared with 09/22/2016. FINDINGS: There is stable mild cardiomegaly. There are sternal wires from previous surgery again seen. There has been overall decrease in basilar infiltrates. There is stable linear atelectasis or scarring at the left mid lung. There is no substantial pleural effusion or pneumothorax identified. IMPRESSION: Overall decrease in basilar infiltrates.
[2016-09-24] MEDS ORDERED: ROCEPHIN 1 GM/NS 50 ML IV ONE (10:17)
[2016-09-24] MEDS ORDERED: TYLENOL PO PRN (10:18)
[2016-09-24] MEDS ORDERED: ZOFRAN IV PRN (10:18)
[2016-09-24] MEDS ORDERED: DILAUDID IM PRN (10:18)
[2016-09-24] MEDS: DUONEB (A & A) INH SCH ×3 (14:38→23:21)
[2016-09-24] MEDS: HUMALOG DOSE (PARKWAY) SUBQ SCH ×2 (16:39→21:33)
[2016-09-24] MEDS: SOLU-MEDROL IV SCH (16:39)
[2016-09-24] MEDS ORDERED: NITROGLYCERIN SL PRN (16:43)
[2016-09-24] MEDS ORDERED: ROBITUSSIN-AC PO PRN (16:43)
[2016-09-24] MEDS ORDERED: DUONEB (A & A) INH PRN (16:48)
[2016-09-24] MEDS: NORCO-7.5 PO SCH (17:32)
[2016-09-24] MEDS: GLUCOPHAGE PO SCH (17:34)
[2016-09-24] MEDS ORDERED: GLUCOTROL PO SCH (21:00)
[2016-09-24] MEDS: ELIQUIS PO SCH (21:32)
[2016-09-24] MEDS: TENORMIN PO SCH (21:33)
[2016-09-24] MEDS: PRAVACHOL PO SCH (21:33)
--- NOTE | 2016-09-24 21:40 | HISTORY AND PHYSICAL ---
PRIMARY CARE PHYSICIAN: Dr. Longoria. BANKING SERVICES ADVISOR: Dr. Alonso. RADIATION ONCOLOGIST: Dr. Oconnor. CHIEF COMPLAINT: Shortness of breath that has progressively worsened. HISTORY OF PRESENTING ILLNESS: This is a 76-year-old morbidly obese male with a history of COPD, non small-cell lung cancer, atrial fibrillation, hypertension, diabetes type 2 presents to the ER today with complaints of shortness of breath. It is noted that he has been seen in our ER on 09/21 and 09/22 for shortness of breath. Chest x-ray on 09/21 showed improved pulmonary edema, on 09/22 it showed slight worsening of the basilar infiltrates and today it shows overall decrease in basal infiltrates. Patient states he was discharged home on antibiotics and steroids but he forgot to take them. He was noted in the ER to have an O2 saturation on room air of 89%. He is noted to have shortness of breath at rest despite home O2 and nebulizers. He is noted to have wheezing and rhonchi throughout entire posterior lung aguero so he is being admitted for further evaluation and treatment. 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 PAST SURGICAL HISTORY: CABG, cholecystectomy, left upper lobe pulmonary nodule radio surgery. FAMILY HISTORY: Of heart disease and an unknown cancer in his brother. SOCIAL HISTORY: Currently lives with his . Denies any current tobacco use but is a heavy former smoker and denied any alcohol or illicit drug use. ALLERGIES: Penicillin. HOME MEDICATIONS: Takes DuoNeb q.4 hours, ProAir 1 inhalation q.4 hours, allopurinol 100 mg p.o. daily, Eliquis 2.5 mg p.o. b.i.d., aspirin 81 mg p.o. daily, Tenormin 50 mg p.o. b.i.d., Z-Joe as directed will be held, Lasix 20 mg p.o. daily, glipizide 10 mg p.o. b.i.d., Robitussin AC 10 mL q.4 hours p.r.n. cough, [place] 7.5 one p.o. q.8 hours, lisinopril/hydrochlorothiazide 20/25 one p.o. daily, metformin 1000 mg p.o. b.i.d., nitroglycerin sublingually p.r.n., Pravachol 40 mg p.o. at bedtime and Januvia 100 mg p.o. daily. LABORATORY DATA: Showed a white blood cell count of 6.48, hemoglobin of 12, hematocrit 37.5, platelets 86,000, pH of 7.37 pCO2 of 65, PO2 76, bicarb 32.6. This was on 2 L via nasal cannula. Sodium of 136, potassium 4.4, chloride 97, CO2 31, BUN of 17 with a creatinine of 0.8, glucose 202, proBNP of 336. Chest x-ray today showed overall decrease in basilar infiltrate. REVIEW OF SYSTEMS: He denied any fever, chills, blurred vision, dizziness, chest pain. He has had a productive cough of yellow sputum, shortness of breath, dyspnea at rest and with minimal exertion. He denied any constipation, diarrhea, or burning or hurting with urination. PHYSICAL EXAMINATION: VITAL SIGNS: Showed a temperature of 98.7 degrees, pulse 122, respirations 16, blood pressure 135/57, saturating 95-98% on 3 L via nasal cannula. GENERAL: This is a 76-year-old male who is morbidly obese who is sitting on the side of the bed. Answers questions appropriately. HEENT: Normocephalic and atraumatic. Pupils are equal, round, and reactive to light. Extraocular movements are intact. Oropharynx and nares are clear. NECK: Supple. LUNGS: With wheezing and rhonchi throughout entire posterior lung aguero, equal lung expansion and chest wall movement noted. O2 via nasal cannula currently in use. HEART: With regular rate and rhythm. No murmurs, rubs, or gallops. ABDOMEN: Soft, nontender, nondistended. Bowel sounds are present x4 quadrants. EXTREMITIES: There is no clubbing, cyanosis, or edema. NEUROLOGICAL: The cranial nerves 2-12 appear grossly intact. ASSESSMENT: 1. An acute chronic obstructive pulmonary disease exacerbation. 2. Hypoxemia. 3. Hypertension. 4. Diabetes type 2. 5. Morbid obesity. PLAN: He is being admitted to the medical unit at [facility]. Placed on O2 per protocol. Pattern blood sugars with sliding scale insulin. Diabetic diet. We will give him Rocephin 1 gram IV q.24, 1st dose was given in the ER. Will give him Solu-Medrol 80 mg IV q.8 and wean as patient improves. Continue his home medications, DuoNeb q.4 hours and q.2 p.r.n. Will recheck a CBC and a BMP in the a.m. Dictated by ENDY Machuca for Jed Win MD
[2016-09-25] MEDS: NORCO-7.5 PO SCH ×3 (01:19→16:54)
[2016-09-25] MEDS: SOLU-MEDROL IV SCH ×3 (01:19→16:53)
[2016-09-25] MEDS: DUONEB (A & A) INH SCH ×6 (03:02→23:08)
[2016-09-25 06:15] LABS: BASO% 0.2 % (0.0-0.8); HEMATOCRIT 37.7 % (42.0-52.0); HEMOGLOBIN 11.9 g/dL (14.0-18.0); IMM GRAN# 0.01 X1000 (0.0-0.04); IMM GRAN% 0.2 % (0.0-0.5); LYMPH# 0.43 X1000 (1.2-3.4); LYMPH% 6.5 % (20.5-51.1); MANUAL DIFF NEEDED? YES; MCH 31.5 PG (27-31); MCHC 31.6 g/dL (33-37); MCV 99.7 FL (81-99); MONO# 0.31 X1000 (0.11-0.59); MONO% 4.7 % (1.7-9.3); NEUT% 88.4 % (42.2-75.2); PLT 88 X1000 (130-400); RBC 3.78 XMIL (4.7-6.1)
[2016-09-25 06:28] LABS: AGAP 10; BUN 25 mg/dL (8-22); CALCIUM 8.4 mg/dL (8.8-10.2); CHLORIDE 99 mmol/L (98-107); COSMO 291; SODIUM 136 mmol/L (136-145); TCO2 27 mmol/L (25-35)
[2016-09-25] MEDS: HUMALOG DOSE (PARKWAY) SUBQ SCH ×4 (06:59→22:09)
[2016-09-25 07:15] LABS: HEMOGLOBIN A1C 7.8 % (4.8-6.0)
[2016-09-25 07:47] LABS: URINE CULTURE PL NEEDED? NO; URINE SOURCE CLEAN CATCH
[2016-09-25 08:14] LABS: BILIRUBIN URINE NEGATIVE (NEGATIVE); BLOOD URINE 2+ (NEGATIVE); CLARITY CLEAR (CLEAR); COLOR YELLOW; LEUKOCYTES URINE TRACE (NEGATIVE); NITRITE URINE NEGATIVE (NEGATIVE); PROTEIN URINE 1+(30 mg/dL) mg/dL (NEGATIVE); UROBILINOGEN URINE NORMAL
[2016-09-25 08:14] LABS: BANDS 4 % (0-1); LYMPHS 7 % (21-51); MONO 2 % (1-9)
[2016-09-25] MEDS: GLUCOTROL PO SCH ×2 (08:24→16:54)
[2016-09-25] MEDS: ASPIRIN PO SCH (08:25)
[2016-09-25] MEDS: ELIQUIS PO SCH ×2 (08:25→22:08)
[2016-09-25] MEDS: GLUCOPHAGE PO SCH ×2 (08:25→16:54)
[2016-09-25] MEDS: LASIX PO SCH (08:25)
[2016-09-25] MEDS: TENORMIN PO SCH ×2 (08:25→22:11)
[2016-09-25] MEDS: PRINIVIL PO SCH (08:25)
[2016-09-25] MEDS: JANUVIA PO SCH (08:25)
[2016-09-25] MEDS: HYDROCHLOROTHIAZIDE PO SCH (08:25)
[2016-09-25] MEDS: ZYLOPRIM PO SCH (08:25)
[2016-09-25 08:31] LABS: URINE WBC <10 /HPF (<10)
[2016-09-25 08:32] LABS: URINE EPITHELIAL CELLS <10 /HPF (<10)
--- NOTE | 2016-09-25 08:36 | PROGRESS NOTE ---
DATE: 09/25/2016 SUBJECTIVE: Patient notes that he is feeling a little bit better. Still had a bad night. Still had increased work of breathing, shortness of breath. Denied any chest pain or palpitations. Denies any fevers or chills. OBJECTIVE: Vital Signs: Reviewed. Temperature 97, pulse 73, respiratory rate 18, BP 125/52, saturation 94% on 2 L. General: Patient is a well-developed, obese male who is currently in mild respiratory distress. He is awake, alert. Neck: Supple. CV: Regular rate. Chest: Decreased breath sounds secondary to body habitus. Faint wheezing, but better air movement bilaterally. Abdomen: Soft, morbidly obese. Skin: Silvery plaques over multiple areas of his skin. Actually starting to improve. LABS: WBC 6, hemoglobin and hematocrit 11 and 37. CMP normal with the exception of glucose at 370. Hemoglobin A1c is 7.8. ASSESSMENT: 1. Chronic obstructive pulmonary disease with moderate exacerbation. Continues to improve slowly. 2. Acute hypoxemia. 3. Acute hypertension. 4. Diabetes type 2 with mildly elevated A1c at home at 7.8. 5. Morbid obesity. 6. Psoriasis. PLAN: We will continue to wean the patient's Solu-Medrol as rapidly as possible as he is noted to have elevated blood sugars, which was to be expected with his known history of diabetes. We will continue to follow.
[2016-09-25] MEDS ORDERED: SOLU-MEDROL IV SCH (09:00)
[2016-09-25] MEDS ORDERED: NS 100 ML ONE (09:55)
[2016-09-25] MEDS: ROCEPHIN 1 GM/NS 50 ML IV SCH (09:57)
[2016-09-25] MEDS: PRAVACHOL PO SCH (22:09)
[2016-09-26] MEDS: SOLU-MEDROL IV SCH ×3 (00:31→16:13)
[2016-09-26] MEDS: NORCO-7.5 PO SCH ×3 (00:35→16:13)
[2016-09-26] MEDS: DUONEB (A & A) INH SCH ×5 (03:56→19:51)
[2016-09-26] MEDS: HUMALOG DOSE (PARKWAY) SUBQ SCH ×4 (06:07→21:06)
--- NOTE | 2016-09-26 08:11 | PROGRESS NOTE ---
DATE: 09/26/2016 SUBJECTIVE: Patient notes he is having chest pain underneath his left breast and right breast this morning. No radiation to his arm, his jaw, or his back. Denies any nausea with it. States it is a stabbing pain. Denies any pressure type sensation. He is uncertain if this is similar to his previous heart issues 10 years ago. OBJECTIVE: Vital Signs: Reviewed. General: Patient is a morbidly obese male who is sitting up in the bed which is his usual status. He is in no distress currently. He is awake, alert, oriented. Watching television. HEENT: Normocephalic, atraumatic. Neck: Supple. CV: Regular rate. Chest: Decreased breath sounds due to body habitus. No apparent wheezing. Abdomen: Soft. Extremities: Moves all extremities. Neurologic: No changes. ASSESSMENT: 1. Chronic obstructive pulmonary disease with moderate exacerbation. We will decrease his steroids again today down to 40 every 12. We will continue to follow. 2. Hypoxemia, stable. 3. Chest pain. Electrocardiogram shows atrial fibrillation which is, I believe, chronic for him. We will check cardiac enzymes and follow. 4. Type 2 diabetes. 5. Morbid obesity. PLAN: As noted above, we will check cardiac enzymes. Decrease the Solu-Medrol and follow.
[2016-09-26] MEDS: ZYLOPRIM PO SCH (09:52)
[2016-09-26] MEDS: GLUCOPHAGE PO SCH ×2 (09:52→16:13)
[2016-09-26] MEDS: GLUCOTROL PO SCH ×2 (09:53→16:13)
[2016-09-26] MEDS: TENORMIN PO SCH ×3 (09:53→21:06)
[2016-09-26] MEDS: PRINIVIL PO SCH (09:53)
[2016-09-26] MEDS: HYDROCHLOROTHIAZIDE PO SCH (09:54)
[2016-09-26] MEDS: JANUVIA PO SCH (09:54)
[2016-09-26] MEDS: LASIX PO SCH (09:54)
[2016-09-26] MEDS: ELIQUIS PO SCH ×2 (09:55→21:04)
[2016-09-26] MEDS: ASPIRIN PO SCH (09:55)
--- NOTE | 2016-09-26 10:17 | EKG Report ---
Test Performed on : 09/26/2016 09:48:45 AM Test Reason : copd Blood Pressure : / mmHG Vent. Rate : 091 BPM Atrial Rate : 091 BPM P-R Int : 344 ms QRS Dur : 096 ms QT Int : 360 ms P-R-T Axes : 000 -39 139 degrees QTc Int : 442 ms Sinus rhythm. with 1st degree AV block. with premature supraventricular complexes. and with frequent premature ventricular complexes. Left axis deviation Inferior infarct (cited on or before 18-NOV-2012) Anterior infarct , age undetermined ST & T wave abnormality, consider lateral ischemia Abnormal ECG When compared with ECG of 22-SEP-2016 21:00, (Unconfirmed) premature ventricular complexes. are now present premature supraventricular complexes. are now present DC interval has increased Unconfirmed Result
[2016-09-26] MEDS: ROCEPHIN 1 GM/NS 50 ML IV SCH (11:26)
--- NOTE | 2016-09-26 16:56 | CONSULTATION ---
DATE OF CONSULTATION: 09/26/2016 INDICATION: Atrial fibrillation, shortness of breath. HISTORY OF PRESENT ILLNESS: Mr. Ponce is a 76-year-old white male with a history of COPD and lung cancer. He apparently had treatment of this a few years back with apparent remission, but has been noted to have reoccurrence on recent PET scans with a subsequent confirmation via CT-guided biopsy. He has a history of atrial fibrillation, hypertension and diabetes. He presented to the ER on the with complaints of worsening shortness of breath. Per his history he reports the shortness of breath has been fairly significant for years; however, it seems like maybe over the last 2-3 weeks it has worsened. He is on home oxygen therapy. He does not report any fevers at home. He does think that he has a little bit more cough recently. His shortness of breath has improved somewhat during this hospitalization. He was noted to be in atrial fibrillation today. Per Dr. Son's notes in 2014 which was last time he was seen, he was in atrial fibrillation at that time and maintained on Eliquis. PAST MEDICAL HISTORY: 1. Significant for adenocarcinoma of the lung. This was re-diagnosed via CT-guided biopsy in May. 2. Coronary artery disease with history of coronary bypass grafting in 2004 that demonstrated a QIU to the LAD, vein graft to the PDA, vein graft to the OM. He had a heart catheterization in 2009 demonstrating patent QIU vein graft to the circumflex was occluded, vein graft to the RCA was patent. 3. Fairly chronic atrial fibrillation. 4. COPD. 5. Hypertension. 6. Hypercholesterolemia. 7. Diabetes mellitus. 8. Previous tobacco abuse. 9. Adenocarcinoma of the lung. 10. Psoriasis. SOCIAL HISTORY: He is . Denies any current tobacco use. Previously quit around 7 years ago. FAMILY HISTORY: Significant for heart disease and some unknown type of cancer in his brother. REVIEW OF SYSTEMS: A 10 system review of systems is negative except for those things mentioned in HPI. PHYSICAL EXAMINATION: Vital signs: During this hospitalization he was febrile on 09/22 up to 100.8; otherwise not febrile. Heart rate of 91, blood pressure most recently is 143/63. General: He is in no acute distress. HEENT: Oropharynx is moist. Normal dentition. Eye examination is pink conjunctivae, white sclerae Neck: Exam shows no obvious thyromegaly or thyroid tenderness. Cardiovascular: He is in an irregular rate and rhythm. No murmurs. No S3. Currently he is in atrial fibrillation and at the time of my examination, he was in the 70s to 80s. Chest: He has bilateral end-expiratory wheezes with somewhat of a prolonged expiratory phase. He has no increased work of breathing. Nasal cannula O2 is in place. Abdomen: Soft, nontender, nondistended. He has no obvious organomegaly. Skin: Warm and dry throughout without any rashes. Neurological: He is moving all extremities well. Cranial nerves 2-12 are intact without any sensation deficits. Psychiatric: He is alert, oriented, pleasant. Normal mood and affect. PERTINENT DATA: His EKG this morning demonstrates atrial flutter. Rate appears to be 91 beats per minute. He has several PVCs versus aberrantly conducted beats. I believe they are likely PVCs in a pattern of trigeminy. Chest x-ray suggested an overall decrease in basilar infiltrates. Laboratory data shows a white count is 6.6, yesterday hematocrit 37.7, platelet count of 88,000. He has no chemistry data from today. Cardiac enzymes are negative. He had a proBNP on the . ASSESSMENT: 1. Chronic obstructive pulmonary disease exacerbation. 2. History of fairly chronic atrial fibrillation. PLAN: Patient is currently maintained on Eliquis, which I would recommend continuing. Last echo was in 2014 by our records and I would recommend repeating that. His proBNP is slightly elevated, but likely explained by the chronic obstructive pulmonary disease as well as his atrial fibrillation. It is only at 336. His lung exam certainly would suggest bronchospasm presently and he is being treated appropriately. I would not recommend an ischemia evaluation at this time. We will follow up on the results of the echo.
[2016-09-26] MEDS ORDERED: NS 500 ML IV SCH (19:30)
--- NOTE | 2016-09-26 19:39 | EKG Report ---
Test Performed on : 09/26/2016 7:14:24 PM Test Reason : copd Blood Pressure : / mmHG Vent. Rate : 084 BPM Atrial Rate : 258 BPM P-R Int : 000 ms QRS Dur : 080 ms QT Int : 368 ms P-R-T Axes : -78 -49 110 degrees QTc Int : 434 ms Atrial flutter. with variable AV block. with premature ventricular or aberrantly conducted complexes. Left axis deviation Left ventricular hypertrophy with repolarization abnormality Inferior infarct (cited on or before 18-NOV-2012) Anterolateral infarct (cited on or before 18-NOV-2012) Abnormal ECG When compared with ECG of 26-SEP-2016 09:48, (Unconfirmed) Atrial flutter. has replaced Sinus rhythm. ST no longer depressed in Inferior leads Unconfirmed Result
[2016-09-26] MEDS: PRAVACHOL PO SCH (21:04)
[2016-09-27] MEDS: DUONEB (A & A) INH SCH ×7 (00:13→23:07)
[2016-09-27] MEDS: SOLU-MEDROL IV SCH ×2 (00:42→12:11)
[2016-09-27] MEDS: NORCO-7.5 PO SCH ×3 (00:42→16:54)
[2016-09-27] MEDS: HUMALOG DOSE (PARKWAY) SUBQ SCH ×4 (06:11→20:59)
[2016-09-27 06:18] LABS: HEMATOCRIT 34.9 % (42.0-52.0); MCHC 31.5 g/dL (33-37); MCV 98.3 FL (81-99); MPV 11.7 FL (7.4-10.4); RBC 3.55 XMIL (4.7-6.1)
[2016-09-27 06:38] LABS: AGAP 9; ALBUMIN 3.2 g/dL (3.5-5.0); ALKALINE PHOSPHATASE 70 U/L (32-122); BUN 43 mg/dL (8-22); CHLORIDE 101 mmol/L (98-107); COSMO 300; GOT 26 U/L (10-34); GPT 19 U/L (10-44); HDL 31 mg/dL (35-55); LDL 103 mg/dL; MAGNESIUM 2.3 mg/dL (1.5-2.7); POTASSIUM 4.8 mmol/L (3.5-5.1); SODIUM 138 mmol/L (136-145); TCO2 29 mmol/L (25-35); TOTAL PROTEIN 6.4 g/dL (6.3-8.3); TRIGLYCERIDES 109 mg/dL (39-160); VLDL 22 mg/dL
[2016-09-27] MEDS: GLUCOTROL PO SCH ×2 (08:00→16:55)
--- NOTE | 2016-09-27 08:26 | EKG Report ---
Test Performed on : 09/27/2016 06:21:12 AM Test Reason : cp Blood Pressure : / mmHG Vent. Rate : 084 BPM Atrial Rate : 041 BPM P-R Int : 000 ms QRS Dur : 082 ms QT Int : 362 ms P-R-T Axes : 000 -49 121 degrees QTc Int : 427 ms Atrial fibrillation. Left axis deviation Inferior infarct (cited on or before 18-NOV-2012) Anterior infarct (cited on or before 18-NOV-2012) ST & T wave abnormality, consider lateral ischemia Abnormal ECG When compared with ECG of 26-SEP-2016 19:14, (Unconfirmed) Atrial fibrillation. has replaced Atrial flutter. T wave inversion more evident in Lateral leads Unconfirmed Result
--- NOTE | 2016-09-27 08:48 | PROGRESS NOTE ---
DATE: 09/27/2016 SUBJECTIVE: The patient notes his chest pain has resolved. He is still having some shortness of breath, but nothing severe. He notes this is almost back to his baseline. He denies any nausea or vomiting. He denies any GI or issues. PHYSICAL EXAMINATION: Vital Signs: Temperature 97 degrees, pulse 86, respiratory rate 20, blood pressure 150/70 to 124/55. General: The patient is well developed, well nourished. Currently in no real respiratory distress. He is awake, alert, oriented. Neck: Supple. Cardiovascular: Regular rate. Chest: Relatively clear. Abdomen: Soft. Extremities: Moves all extremities. Neurologic: No focal changes. Skin: Warm and dry. No rashes. ASSESSMENT: 1. Chronic obstructive pulmonary disease with moderate exacerbation. Continue to wean Solu- Medrol. We will decrease to 40 every 12 hours continue breathing treatments. 2. Chest pain, appears resolved. Likely this was more bronchospasm or gastrointestinal related. 3. Hypoxemia, chronic, stable. 4. Diabetes type 2. Blood sugars are improving as we are able to decrease his steroids. 5. Morbid obesity. PLAN: We will check echocardiogram, wean his steroids, continue breathing treatments. Further orders as needed. Hopefully home in the a.m.
[2016-09-27] MEDS: JANUVIA PO SCH (10:20)
[2016-09-27] MEDS: ZYLOPRIM PO SCH (10:21)
[2016-09-27] MEDS: LASIX PO SCH (10:21)
[2016-09-27] MEDS: TENORMIN PO SCH ×2 (10:21→20:59)
[2016-09-27] MEDS: GLUCOPHAGE PO SCH ×2 (10:21→16:55)
[2016-09-27] MEDS: ASPIRIN PO SCH (10:21)
[2016-09-27] MEDS: ROCEPHIN 1 GM/NS 50 ML IV SCH (10:22)
[2016-09-27] MEDS: ELIQUIS PO SCH ×2 (10:22→20:59)
[2016-09-27] MEDS: HYDROCHLOROTHIAZIDE PO SCH (10:22)
[2016-09-27] MEDS: PRINIVIL PO SCH (10:22)
--- NOTE | 2016-09-27 15:28 | ECHO REPORT ---
ORDER DATE: 09/27/2016 DATE OF PROCEDURE: 09/27/2016. PROCEDURE: Echocardiogram. ECHOCARDIOGRAPHIC MEASUREMENTS: 1. Interventricular septum 1.3. 2. Left ventricular posterior wall 1.3. 3. Left ventricular diastolic diameter 5.0. 4. Left atrium 5.0. 5. Aorta 3.5. INTERPRETATION: 1. Normal left ventricular cavity size. Concentric left ventricular hypertrophy. Estimated ejection fraction of 60%. 2. Aortic valve leaflets are trileaflet, calcified. 3. Mitral valve was normal. There is mitral annular calcification. 4. Moderate left atrial enlargement. 5. Tricuspid valve was normal. 6. Peak velocity across the aortic valve was 3.6 m/sec with a mean gradient of 52 mmHg with a maximum gradient of 52 mmHg and mean gradient of 28 mmHg. Aortic valve area by VTI was 1.4 square cm. There is moderate aortic stenosis associated with mild aortic regurgitation. 7. There is mild mitral regurgitation. 8. There is mild to moderate tricuspid regurgitation. Peak velocity across the tricuspid valve was 3.9 m/sec 9. Pulmonary artery systolic pressure of 70 mmHg. There is significant pulmonary arterial hypertension. 10. There is no pericardial effusion or obvious intracardiac mass or thrombus seen.
[2016-09-27] MEDS: PRAVACHOL PO SCH (20:59)
[2016-09-28] MEDS: SOLU-MEDROL IV SCH (00:17)
[2016-09-28] MEDS: NORCO-7.5 PO SCH ×2 (00:17→08:13)
[2016-09-28] MEDS: DUONEB (A & A) INH SCH ×2 (03:24→07:58)
[2016-09-28] MEDS: HUMALOG DOSE (PARKWAY) SUBQ SCH (06:24)
[2016-09-28 07:17] VITALS: BP 168/58
[2016-09-28] MEDS: GLUCOTROL PO SCH (08:13)
[2016-09-28] MEDS: GLUCOPHAGE PO SCH (08:13)
[2016-09-28] MEDS ORDERED: OMNICEF PO SCH (09:00)
[2016-09-28] MEDS ORDERED: ZITHROMAX PO SCH (09:00)
[2016-09-28] MEDS: ASPIRIN PO SCH (09:32)
[2016-09-28] MEDS: JANUVIA PO SCH (09:32)
[2016-09-28] MEDS: HYDROCHLOROTHIAZIDE PO SCH (09:33)
[2016-09-28] MEDS: PRINIVIL PO SCH (09:33)
[2016-09-28] MEDS: LASIX PO SCH (09:33)
[2016-09-28] MEDS: TENORMIN PO SCH (09:33)
[2016-09-28] MEDS: ELIQUIS PO SCH (09:33)
[2016-09-28] MEDS: ZYLOPRIM PO SCH (09:33)
[2016-09-28] MEDS ORDERED: SOLU-MEDROL IV SCH (21:00)
--- NOTE | 2016-09-29 08:33 | DISCHARGE SUMMARY ---
ADMISSION DATE: 09/24/2016 DISCHARGE DATE: 09/28/2016 DISCHARGE DIAGNOSES: 1. Morbid obesity. 2. Chronic obstructive pulmonary disease with exacerbation, improved. 3. Chronic hypoxemia, stable. 4. Psoriasis, actually improve secondary to his current steroids. 5. Diabetes type 2, blood sugar mildly elevated. It continues to improve with weaning his steroids. 6. Hypertension. CONSULTATIONS: None. PROCEDURES: None. BRIEF HOSPITAL COURSE: The patient is a 76-year-old male who presented to the emergency department and was subsequently admitted with COPD exacerbation. He continued to improve. Thankfully, on discharge he is awake and alert. He is in no distress. He is feeling better. He is back to his usual baseline breathing status. DISPOSITION: The patient will be discharged home. No changes were made on his home medications. A prescription was written for Omnicef, azithromycin, and [facility] until he can get in with his primary care. He will follow with his primary care in 1 to 2 weeks. TIME SPENT: There was 35 minutes spent in discharge planning and instructions.
== END 2016-09-28 10:30 | disposition home or self-care (01) | DRG 191 ==
LOC: P.ED 06:14 → P.MEDSURG 10:51 → OBSVTOIN 10:51
PROVIDERS: ADMIT Internal Medicine; ATTEND Family Medicine
DX: J44.1 Chronic obstructive pulmonary disease with (acute) exacerbation (principal); C34.90 Malignant neoplasm of unspecified part of unspecified bronchus or lung; E11.65 Type 2 diabetes mellitus with hyperglycemia; I11.0 Hypertensive heart disease with heart failure; I50.9 Heart failure, unspecified; I25.810 Atherosclerosis of coronary artery bypass graft(s) without angina pectoris; Z68.41 Body mass index [BMI] 40.0-44.9, adult; J45.909 Unspecified asthma, uncomplicated; E66.01 Morbid (severe) obesity due to excess calories; Z99.81 Dependence on supplemental oxygen; E53.8 Deficiency of other specified B group vitamins; D64.9 Anemia, unspecified; I25.10 Atherosclerotic heart disease of native coronary artery without angina pectoris; M10.9 Gout, unspecified; L40.9 Psoriasis, unspecified; R09.02 Hypoxemia; I48.2 Chronic atrial fibrillation; E78.00 Pure hypercholesterolemia, unspecified; Z82.49 Family history of ischemic heart disease and other diseases of the circulatory system; Z80.9 Family history of malignant neoplasm, unspecified; Z87.891 Personal history of nicotine dependence; Z79.899 Other long term (current) drug therapy; Z79.01 Long term (current) use of anticoagulants; Z79.82 Long term (current) use of aspirin; Z79.84 Long term (current) use of oral hypoglycemic drugs
CPT/HCPCS: 36415; 71010; 80048; 80053; 80061; 81001; 82550; 82805; 82948; 83036; 83735; 83880; 84484; 85025; 85027; 87040; 93005; 93306; 94640; 94761; 96361; 96374; J0696; J1815; J2920; J2930; J7040

== ENCOUNTER 2016-11-16 09:28 | Inpatient (IN) ==
[2016-11-16] MEDS ORDERED: LASIX IV ONE (11:30)
[2016-11-16] MEDS: DUONEB (A & A) INH SCH ×4 (11:52→23:26)
[2016-11-16 12:13] LABS: AGAP 14; ALBUMIN 3.6 g/dL (3.5-5.0); ALKALINE PHOSPHATASE 76 U/L (32-122); BUN 33 mg/dL (8-22); CALCIUM 8.9 mg/dL (8.8-10.2); CHLORIDE 101 mmol/L (98-107); COSMO 297; GOT 38 U/L (10-34); GPT 19 U/L (10-44); POTASSIUM 3.3 mmol/L (3.5-5.1); SODIUM 144 mmol/L (136-145); TCO2 30 mmol/L (25-35); TOTAL PROTEIN 6.6 g/dL (6.3-8.3)
[2016-11-16] MEDS ORDERED: SALINE LOCK IV FLUID XX ONE (15:03)
[2016-11-16] MEDS ORDERED: NITROGLYCERIN SL PRN (15:05)
[2016-11-16] MEDS ORDERED: TYLENOL PO PRN (15:06)
[2016-11-16] MEDS ORDERED: ZOFRAN IV PRN (15:06)
[2016-11-16] MEDS ORDERED: KLOR-CON PO ONE (15:07)
--- NOTE | 2016-11-16 15:51 | Diag Imaging Result Document ---
PROCEDURE NAME: CHEST-2 VIEWS - 11/16/2016 CHEST, 2 VIEWS: FINDINGS: Compared with portable exam of 09/24/2016. There is mild cardiomegaly. There are sternal wires from previous surgery again seen. There is atelectasis at the right middle lobe. There is mild infiltrate at the posterior right lower lobe. There is a tiny right pleural effusion. There is perihilar atelectasis on the left. There is no vascular congestion, or pneumothorax identified. IMPRESSION: 1. Right middle lobe atelectasis. 2. Mild right lower lobe infiltrate. 3. Tiny right pleural effusion. 4. Perihilar atelectasis on the left.
[2016-11-16] MEDS: GLUCOTROL PO SCH (17:01)
[2016-11-16] MEDS: LASIX IV SCH (17:01)
[2016-11-16] MEDS: GLUCOPHAGE PO SCH (17:01)
[2016-11-16] MEDS: JANUVIA PO SCH (21:23)
[2016-11-16] MEDS: TENORMIN PO SCH (21:24)
[2016-11-16] MEDS: PRAVACHOL PO SCH (21:24)
[2016-11-16] MEDS: ELIQUIS PO SCH (21:24)
[2016-11-17] MEDS: DUONEB (A & A) INH SCH ×6 (03:04→22:51)
[2016-11-17] MEDS: LASIX IV SCH ×3 (04:25→23:35)
[2016-11-17 06:30] LABS: HEMATOCRIT 35.1 % (42.0-52.0); MCH 30.5 PG (27-31); MCHC 31.3 g/dL (33-37); MCV 97.2 FL (81-99); RBC 3.61 XMIL (4.7-6.1)
[2016-11-17 06:48] LABS: AGAP 13; BUN 32 mg/dL (8-22); CALCIUM 9.1 mg/dL (8.8-10.2); CHLORIDE 101 mmol/L (98-107); COSMO 298; MAGNESIUM 1.5 mg/dL (1.5-2.7); POTASSIUM 3.4 mmol/L (3.5-5.1); SODIUM 145 mmol/L (136-145); TCO2 31 mmol/L (25-35)
[2016-11-17] MEDS: GLUCOPHAGE PO SCH ×2 (07:54→17:14)
[2016-11-17] MEDS: GLUCOTROL PO SCH ×2 (07:55→17:14)
[2016-11-17] MEDS: HYDROCHLOROTHIAZIDE PO SCH (10:37)
[2016-11-17] MEDS: TENORMIN PO SCH ×2 (10:37→21:29)
[2016-11-17] MEDS: ASPIRIN PO SCH (10:37)
[2016-11-17] MEDS: PRINIVIL PO SCH (10:38)
[2016-11-17] MEDS: ZYLOPRIM PO SCH (10:38)
[2016-11-17] MEDS: ELIQUIS PO SCH ×2 (10:38→21:29)
--- NOTE | 2016-11-17 11:46 | EKG Report ---
Test Performed on : 11/17/2016 11:34:10 AM Test Reason : palpitations Blood Pressure : / mmHG Vent. Rate : 090 BPM Atrial Rate : 096 BPM P-R Int : 000 ms QRS Dur : 072 ms QT Int : 344 ms P-R-T Axes : 000 -45 128 degrees QTc Int : 420 ms Atrial fibrillation. Left axis deviation Moderate voltage criteria for LVH, may be normal variant Inferior infarct (cited on or before 18-NOV-2012) Anterolateral infarct (cited on or before 18-NOV-2012) Abnormal ECG When compared with ECG of 27-SEP-2016 06:21, ST elevation has replaced ST depression in Inferior leads T wave inversion less evident in Lateral leads Confirmed by Kuldip Tafoya MD ([id number]) on 12/12/2016 10:16:19 PM
--- NOTE | 2016-11-17 11:49 | PROGRESS NOTE ---
DATE: 11/17/2016 SUBJECTIVE: The patient notes that he is feeling a little bit better this morning. Notes that his abdomen is not quite as distended as it was. Denies any cough, congestion. Denies any shortness of breath. OBJECTIVE: Vital Signs: Reviewed. Temperature 99 degrees, pulse 90, respiratory rate 16, blood pressure 153/57, saturation 94% on 2L. General: Patient is awake, alert, and currently is in no distress. He is sitting on the side of the bed. HEENT: Normocephalic, atraumatic. Neck: Supple. Cardiovascular: Regular rate. Chest: Positive rhonchi. No crackles. No wheezing. Nonlabored. Abdomen: Soft, morbidly obese, with edema to the umbilicus, non-pitting. Extremities: Non-pitting edema, bilateral lower extremities, 3+ bilaterally. LABORATORIES: CBC and CMP essentially normal. Glucose 144. ASSESSMENT: 1. Bilateral lower extremity edema. 2. Anasarca. 3. Morbid obesity. 4. Chronic obstructive pulmonary disease with recent exacerbation. 5. Chronic hypoxemia. 6. Psoriasis. 7. Diabetes, type 2. PLAN: We will continue to attempt diuresis. We will increase Lasix from 40 to 80 IV. We will continue to follow his laboratories. Further orders depending on course. We will check an EKG, as there is some history of him having atrial fibrillation, although appears to be sinus. cc: Jed Win MD
[2016-11-17] MEDS: LEVAQUIN 750 MG/D5W 750 MG/150 ML IVPB IV SCH (18:07)
--- NOTE | 2016-11-17 18:26 | HISTORY AND PHYSICAL ---
CHIEF COMPLAINT.: Shortness of breath. HISTORY OF PRESENT ILLNESS: This is a 76-year-old, male with a history of COPD, chronic hypoxemia, morbid obesity, type 2 diabetes. He presents as a direct admit with lower extremity edema and anasarca. He denies any shortness of breath. This is despite his home medications. PAST MEDICAL HISTORY: Coronary artery disease, atrial fibrillation, hypertension, diabetes type 2, anemia, vitamin B12 deficiency, morbid obesity, COPD, stage I adenocarcinoma with non small cell lung cancer. PAST SURGICAL HISTORY: Coronary artery bypass graft, cholecystectomy, left upper lobe pulmonary nodule radiosurgery. SOCIAL HISTORY: He lives with his . He denies tobacco use. He is a former smoker. He denies alcohol or illicit drug use. ALLERGIES: Penicillin. HOME MEDICATIONS: A list will be obtained. REVIEW OF SYSTEMS: He denied chest pain, palpitations, syncope, dizziness, shortness of breath, black or bloody vomitus, black or bloody stools, hematuria, dysuria. PHYSICAL EXAMINATION: GENERAL: This is a 76-year-old morbidly obese gentleman who is sitting on the bedside in no distress. VITAL SIGNS: Blood pressure is 148/53, with a heart rate of 85, respirations are 18, temperature is 97.9 degrees oral, with room air saturations of 93%, and 95%-98% on 3 L nasal cannula. HEENT: Head is normocephalic, atraumatic. Pupils equal, round, react to light. EOMs are intact. Sclerae anicteric. Mucous membranes are moist. NECK: Supple, with trachea midline. CARDIOVASCULAR: Regular rate and rhythm. S1 and S2 appreciated. No rubs, murmurs, or gallops noted. PULMONARY: He continues with wheezes scattered throughout with no increased work of breathing. ABDOMEN: Morbidly obese, soft. Edematous to the umbilicus, non pitting. EXTREMITIES: No clubbing or cyanosis. He has non pitting edema bilaterally lower extremities that extends to about the area of the umbilicus. ASSESSMENT: 1. Bilateral lower extremity edema and asasarca 2. Anasarca. 3. Morbid obesity. 4. Right lower lobe, right middle lobe pneumonia. 5. Chronic obstructive pulmonary disease with recent exacerbation. 6. Chronic hypoxemia. 7. Psoriasis. 8. Diabetes type 2. PLAN: He will be admitted to the hospital, placed on telemetry. We will obtain a CBC, CMP, magnesium, and TSH. Will identify and continue his home medications as appropriate, give Lasix 40 mg, daily weights, strict I and O. Further treatments pending hospital course. Dictated by ENDY Isaacs for Jed Win MD cc: ENDY Isaacs MD [facility]
[2016-11-17] MEDS: PRAVACHOL PO SCH (21:29)
[2016-11-17] MEDS: JANUVIA PO SCH (21:29)
[2016-11-18] MEDS: NORCO-7.5 PO PRN ×2 (02:23→20:51)
[2016-11-18] MEDS: DUONEB (A & A) INH SCH ×6 (02:57→22:55)
[2016-11-18 06:34] LABS: AGAP 13; ALBUMIN 3.4 g/dL (3.5-5.0); ALKALINE PHOSPHATASE 67 U/L (32-122); BUN 29 mg/dL (8-22); CALCIUM 8.6 mg/dL (8.8-10.2); CHLORIDE 100 mmol/L (98-107); COSMO 293; GOT 36 U/L (10-34); GPT 18 U/L (10-44); MAGNESIUM 1.5 mg/dL (1.5-2.7); POTASSIUM 3.3 mmol/L (3.5-5.1); SODIUM 144 mmol/L (136-145); TCO2 31 mmol/L (25-35); TOTAL PROTEIN 6.3 g/dL (6.3-8.3)
[2016-11-18 06:45] LABS: HEMOGLOBIN 10.1 g/dL (14.0-18.0); MCH 29.9 PG (27-31); MCHC 30.6 g/dL (33-37); MCV 97.6 FL (81-99); MPV 12.2 FL (7.4-10.4); RBC 3.38 XMIL (4.7-6.1)
[2016-11-18] MEDS ORDERED: KLOR-CON PO ONE (08:25)
[2016-11-18] MEDS: ZYLOPRIM PO SCH (08:37)
[2016-11-18] MEDS: ASPIRIN PO SCH (08:37)
[2016-11-18] MEDS: TENORMIN PO SCH ×2 (08:37→20:49)
[2016-11-18] MEDS: GLUCOTROL PO SCH ×2 (08:37→17:08)
[2016-11-18] MEDS: ELIQUIS PO SCH ×2 (08:37→20:49)
[2016-11-18] MEDS: GLUCOPHAGE PO SCH ×2 (08:37→17:08)
[2016-11-18] MEDS: PRINIVIL PO SCH (08:37)
[2016-11-18] MEDS: HYDROCHLOROTHIAZIDE PO SCH (08:37)
[2016-11-18] MEDS: LASIX IV SCH (11:35)
--- NOTE | 2016-11-18 11:42 | PROGRESS NOTE ---
DATE: 11/18/2016 SUBJECTIVE: The patient notes that he is feeling somewhat better. He denies any cough or congestion. Denies any chest pain or palpitations. States that he weighed 308 when he got to the hospital and was 294 this morning. Notes that he has got less swelling in his extremities, less swelling in his abdomen. States overall he actually feels a little bit improved. PHYSICAL EXAMINATION: Vital Signs: Temperature 97, pulse 91, respiratory rate 18, BP 105/53, and saturating 96% on room air. General: Patient is awake, alert. He is currently in no respiratory distress. He is pleasant to talk with. Lying in the bed. HEENT: Normocephalic. Neck: Supple. CV: Regular rate. Chest: Clear, although decreased secondary to body habitus. Abdomen: Soft, morbidly obese. Extremities: Moves all extremities. Noted to have 3+ edema in his lower extremities. He is actually having some pitting edema at this point. Skin: Noted to have multiple areas of psoriasis that are in various stages. He previously had nonpitting edema up to his umbilicus. Now it is pitting. It is improved. ASSESSMENT: 1. Bilateral lower extremity edema with anasarca, improving. 2. Morbid obesity. 3. Right lower lobe pneumonia, improving. 4. Chronic obstructive pulmonary disease with recent exacerbation. 5. Chronic hypoxemia. 6. Psoriasis. 7. Diabetes type 2. PLAN: Overall, the patient continues to improve. His creatinine and BUN remain stable. His weight is down 14 pounds since admission. We will continue high-dose IV Lasix and continue to follow. Home in a few days. Continue sliding scale insulin. cc: Jed Win MD
[2016-11-18] MEDS: LEVAQUIN 750 MG/D5W 750 MG/150 ML IVPB IV SCH (18:08)
[2016-11-18] MEDS: PRAVACHOL PO SCH (20:49)
[2016-11-18] MEDS: JANUVIA PO SCH (20:49)
[2016-11-19] MEDS: DUONEB (A & A) INH SCH ×6 (02:56→23:18)
[2016-11-19 06:07] LABS: MCH 30.4 PG (27-31); MCHC 31.3 g/dL (33-37); MCV 97.3 FL (81-99); MPV 11.9 FL (7.4-10.4); RBC 3.29 XMIL (4.7-6.1)
[2016-11-19 06:15] LABS: AGAP 12; ALBUMIN 3.4 g/dL (3.5-5.0); ALKALINE PHOSPHATASE 67 U/L (32-122); BUN 28 mg/dL (8-22); CALCIUM 8.6 mg/dL (8.8-10.2); CHLORIDE 99 mmol/L (98-107); COSMO 289; GOT 40 U/L (10-34); GPT 19 U/L (10-44); MAGNESIUM 1.6 mg/dL (1.5-2.7); POTASSIUM 3.5 mmol/L (3.5-5.1); SODIUM 142 mmol/L (136-145); TCO2 31 mmol/L (25-35); TOTAL PROTEIN 6.1 g/dL (6.3-8.3)
[2016-11-19] MEDS: HYDROCHLOROTHIAZIDE PO SCH (08:32)
[2016-11-19] MEDS: GLUCOPHAGE PO SCH ×2 (08:33→16:16)
[2016-11-19] MEDS: PRINIVIL PO SCH (08:33)
[2016-11-19] MEDS: ELIQUIS PO SCH ×2 (08:33→21:54)
[2016-11-19] MEDS: ZYLOPRIM PO SCH (08:33)
[2016-11-19] MEDS: GLUCOTROL PO SCH ×2 (08:33→16:16)
[2016-11-19] MEDS: ASPIRIN PO SCH (08:33)
[2016-11-19] MEDS: ZAROXOLYN PO SCH (08:33)
[2016-11-19] MEDS: TENORMIN PO SCH ×2 (08:33→21:54)
[2016-11-19] MEDS: LEVAQUIN 750 MG/D5W 750 MG/150 ML IVPB IV SCH ×2 (16:16→16:34)
[2016-11-19] MEDS: JANUVIA PO SCH (21:54)
[2016-11-19] MEDS: PRAVACHOL PO SCH (21:54)
[2016-11-20] MEDS: DUONEB (A & A) INH SCH ×6 (03:16→23:04)
[2016-11-20 06:03] LABS: HEMATOCRIT 32.5 % (42.0-52.0); HEMOGLOBIN 10.2 g/dL (14.0-18.0); MCH 30.6 PG (27-31); MCHC 31.4 g/dL (33-37); MCV 97.6 FL (81-99); RBC 3.33 XMIL (4.7-6.1)
[2016-11-20 06:25] LABS: ALBUMIN 3.5 g/dL (3.5-5.0); CALCIUM 8.4 mg/dL (8.8-10.2); POTASSIUM 3.5 mmol/L (3.5-5.1); TOTAL BILIRUBIN 0.4 mg/dL (0.20-1.00); TOTAL PROTEIN 6.3 g/dL (6.3-8.3)
[2016-11-20] MEDS: ZAROXOLYN PO SCH (10:14)
[2016-11-20] MEDS: ASPIRIN PO SCH (10:14)
[2016-11-20] MEDS: GLUCOPHAGE PO SCH (10:14)
[2016-11-20] MEDS: GLUCOTROL PO SCH (10:14)
[2016-11-20] MEDS: TENORMIN PO SCH ×2 (10:14→21:33)
[2016-11-20] MEDS: HYDROCHLOROTHIAZIDE PO SCH (10:14)
[2016-11-20] MEDS: PRINIVIL PO SCH (10:15)
[2016-11-20] MEDS: ZYLOPRIM PO SCH (10:15)
[2016-11-20] MEDS: ELIQUIS PO SCH ×2 (10:15→21:33)
--- NOTE | 2016-11-20 13:40 | PROGRESS NOTE ---
DATE: 11/20/2016 SUBJECTIVE: This patient states that he is feeling somewhat better. He denies any shortness of breath, cough. No nausea, no vomiting. No diarrhea, no constipation. He is still complaining of lower extremity edema. OBJECTIVE: Vital Signs: Temperature 97.9 degrees, pulse 78, respiratory rate 18, blood pressure 113/47, oxygen saturation is 95% on room air. HEENT: Head normocephalic. No trauma. PERRLA. Neck: Supple. I cannot see JVD because of the neck size. Chest: Coarse breath sounds bilaterally. Cardiovascular: RRR. No murmurs. Abdomen: Soft, obese. Extremities: 3+ lower extremity edema. No clubbing. No cyanosis. Skin: He has generalized rash-like lesions like psoriasis in various stages. Neurological examination: The patient is alert and oriented x3. No focal neurological deficits. LABORATORY: WBC 4.3, hemoglobin 10.2, hematocrit 32.5, platelets 105. Sodium 139, potassium 3.5, chloride 99, bicarbonate 28, BUN 29, creatinine 1.3, glucose 124, calcium 8.4. ASSESSMENT AND PLAN: 1. Right lower lung pneumonia. Continue with antibiotics. This patient is getting levofloxacin. 2. Anasarca. Apparently this is getting better. He has been losing weight. this patient is not on Lasix, he is on metolazone that was ordered yesterday. The creatinine increased a little bit from 1.1 to 1.3. I will monitor this. 3. Recently discharged secondary to chronic obstructive pulmonary disease exacerbation, not in exacerbation at this moment. 4. Chronic hypoxemia, aware. Continue with oxygen supplementation. 5. Generalized psoriasis, aware. Continue with the same management. 6. Type 2 diabetes. I will stop his metformin and glipizide, and I will start this patient on Januvia, and I will start this patient on sliding scale insulin. Also, I will check his hemoglobin A1c. 7. Pulmonary arterial hypertension with likely pulmonary parenchymal disease, this can be contributing to his fluid overload, will continue with diuresis. 8. History of lung cancer apparently in remission. 9. History of atrial fibrillation. Continue with anticoagulation. cc: Joselito Beal MD
[2016-11-20] MEDS: HUMULIN R (PARKWAY) SUBQ SCH (16:53)
[2016-11-20] MEDS: LEVAQUIN 750 MG/D5W 750 MG/150 ML IVPB IV SCH (17:58)
[2016-11-20] MEDS: PRAVACHOL PO SCH (21:33)
[2016-11-20] MEDS: NORCO-7.5 PO PRN (22:12)
[2016-11-21] MEDS: HUMULIN R (PARKWAY) SUBQ SCH ×5 (01:52→21:47)
[2016-11-21] MEDS: DUONEB (A & A) INH SCH ×5 (03:16→20:16)
[2016-11-21 06:42] LABS: MANUAL DIFF NEEDED? NO
[2016-11-21 06:51] LABS: BASO% 0.2 % (0.0-0.8); EOS# 0.07 X1000 (0.0-0.7); EOS% 1.6 % (0.0-10.0); HEMATOCRIT 33.3 % (42.0-52.0); HEMOGLOBIN 10.3 g/dL (14.0-18.0); IMM GRAN# 0.01 X1000 (0.0-0.04); IMM GRAN% 0.2 % (0.0-0.5); LYMPH# 0.64 X1000 (1.2-3.4); LYMPH% 14.8 % (20.5-51.1); MCH 29.9 PG (27-31); MCHC 30.9 g/dL (33-37); MCV 96.8 FL (81-99); MONO# 0.66 X1000 (0.11-0.59); MONO% 15.3 % (1.7-9.3); MPV 11.9 FL (7.4-10.4); NEUT% 67.9 % (42.2-75.2); PLT 109 X1000 (130-400); RBC 3.44 XMIL (4.7-6.1)
[2016-11-21 07:05] LABS: HEMOGLOBIN A1C 7.6 % (4.8-6.0)
[2016-11-21 07:18] LABS: AGAP 13; BUN 26 mg/dL (8-22); CALCIUM 8.6 mg/dL (8.8-10.2); CHLORIDE 101 mmol/L (98-107); COSMO 287; POTASSIUM 3.8 mmol/L (3.5-5.1); SODIUM 141 mmol/L (136-145); TCO2 28 mmol/L (25-35)
[2016-11-21] MEDS: ZAROXOLYN PO SCH (08:14)
[2016-11-21] MEDS: PRINIVIL PO SCH (08:14)
[2016-11-21] MEDS: ZYLOPRIM PO SCH (08:14)
[2016-11-21] MEDS: ASPIRIN PO SCH (08:14)
[2016-11-21] MEDS: TENORMIN PO SCH ×2 (08:14→21:47)
[2016-11-21] MEDS: ELIQUIS PO SCH ×2 (08:14→21:45)
[2016-11-21] MEDS: HYDROCHLOROTHIAZIDE PO SCH (08:14)
[2016-11-21] MEDS ORDERED: DULCOLAX PR ONE (12:49)
--- NOTE | 2016-11-21 14:46 | PROGRESS NOTE ---
DATE: 11/21/2016 SUBJECTIVE: This patient states that he is feeling better. He is still complaining of mild shortness of breath and lower edema. This patient has also one big blister that measures around 8 cm of diameter at the level of the anterior tibial area on the left side. I have requested Wound Care for evaluation. OBJECTIVE: Vital Signs: Temperature 98.5 degrees, pulse 78, respiratory rate 20, blood pressure 111/62, O2 saturation 98% on room air. HEENT: Head normocephalic. No trauma. PERRLA. Neck: Supple. No JVD. No masses. Central trachea. Chest: Coarse breath sounds bilaterally. Cardiovascular: Regular rhythm and rate. No murmurs. Abdomen: Soft, obese. Extremities: 3+ lower extremity edema with 8 cm blister in the left anterior tibial area. No clubbing no cyanosis. Skin: He has generalized lesions, due to psoriasis. Neurological: The patient is alert and oriented x3. No focal neurological deficits. LABORATORY: WBC 4.3, hemoglobin 10.3, hematocrit 33.3, platelets 109,000. Sodium 141, potassium 3.8, chloride 101, bicarbonate 28, BUN 26, creatinine 1.1, glucose 116. Hemoglobin A1c 7.6, calcium 8.6. ASSESSMENT AND PLAN: 1. Right lower lung pneumonia. Continue with antibiotics. This patient is getting levofloxacin. 2. Anasarca. Apparently also this is getting better. He has been losing weight. The patient is not on Lasix. He is on metolazone that was ordered 2 days ago. His creatinine has been stable. We will monitor. 3. Recently discharged secondary to chronic obstructive pulmonary disease exacerbation. Not in exacerbation at this moment. 4. Chronic hypoxemia. Aware. Continue with oxygen supplementation. 5. Generalized psoriasis. Aware. Continue with the same management. 6. Type 2 diabetes. Continue with the sliding scale insulin. Hemoglobin A1c is 7.6. 7. Pulmonary arterial hypertension with likely pulmonary parenchymal disease this can be contributing to his fluid overload. We will continue with diuresis. 8. History of lung cancer. Apparently in remission. 9. History of atrial fibrillation. Continue with anticoagulation. cc: MD RUT Mcgregor
[2016-11-21] MEDS: LEVAQUIN 750 MG/D5W 750 MG/150 ML IVPB IV SCH (18:55)
[2016-11-21] MEDS: NORCO-7.5 PO PRN (19:00)
[2016-11-21] MEDS: PRAVACHOL PO SCH (21:47)
[2016-11-22] MEDS: DUONEB (A & A) INH SCH ×7 (00:10→22:50)
[2016-11-22 06:31] LABS: MANUAL DIFF NEEDED? NO
[2016-11-22 06:44] LABS: BASO% 0.2 % (0.0-0.8); EOS# 0.07 X1000 (0.0-0.7); EOS% 1.6 % (0.0-10.0); HEMATOCRIT 32.1 % (42.0-52.0); HEMOGLOBIN 10.1 g/dL (14.0-18.0); IMM GRAN# 0.01 X1000 (0.0-0.04); IMM GRAN% 0.2 % (0.0-0.5); LYMPH# 0.71 X1000 (1.2-3.4); LYMPH% 16.3 % (20.5-51.1); MCH 30.3 PG (27-31); MCHC 31.5 g/dL (33-37); MCV 96.4 FL (81-99); MONO# 0.78 X1000 (0.11-0.59); MONO% 17.9 % (1.7-9.3); MPV 11.8 FL (7.4-10.4); NEUT% 63.8 % (42.2-75.2); PLT 101 X1000 (130-400); RBC 3.33 XMIL (4.7-6.1)
[2016-11-22 07:06] LABS: CALCIUM 8.3 mg/dL (8.8-10.2); POTASSIUM 3.8 mmol/L (3.5-5.1)
[2016-11-22] MEDS: HUMULIN R (PARKWAY) SUBQ SCH ×3 (07:15→21:08)
[2016-11-22] MEDS: ZAROXOLYN PO SCH (09:00)
[2016-11-22] MEDS: TENORMIN PO SCH ×2 (09:00→21:08)
[2016-11-22] MEDS: PRINIVIL PO SCH (09:00)
[2016-11-22] MEDS: ZYLOPRIM PO SCH (09:00)
[2016-11-22] MEDS: ASPIRIN PO SCH (09:00)
[2016-11-22] MEDS: ELIQUIS PO SCH ×2 (09:00→21:08)
[2016-11-22] MEDS: HYDROCHLOROTHIAZIDE PO SCH (09:01)
[2016-11-22] MEDS: MIRALAX PO SCH (09:01)
--- NOTE | 2016-11-22 15:38 | PROGRESS NOTE ---
DATE: 11/22/2016 SUBJECTIVE: This patient is feeling better. He is still complaining of mild shortness of breath and lower extremity edema. This patient has also 1 big blister that measures about 8 cm that was removed today by wound care and we started this patient on new medications in that area. OBJECTIVE: Vital Signs: Temperature is 97.8 degrees, pulse 80, respiratory rate 20, blood pressure 119/40, oxygen saturation 94% on room. HEENT: Head normocephalic. No trauma. PERRLA. Neck: Supple. No JVD. No masses. Central trachea. Chest: Coarse breath sounds bilaterally with rhonchi at the level of the right middle and lower lung. Cardiovascular: RRR. No murmurs. Abdomen: Soft, obese. Extremities: There is 3+ lower extremity edema with some blisters in the anterior area. No clubbing. No cyanosis. Skin: He has generalized lesions due to psoriasis. Neurological: The patient is alert and oriented x3. No focal deficits. LABORATORY: WBC 4.3, hemoglobin 10.1, hematocrit 32.1, platelets 101,000. Sodium 138, potassium 3.8, chloride 100, bicarbonate 25, BUN 26, creatinine 1.2, glucose 148, calcium 8.3. ASSESSMENT AND PLAN: 1. Right lower lung pneumonia. Continue with antibiotics. This patient is getting levofloxacin. 2. Anasarca. This is getting better. This is getting better. He has been losing weight, so far 16 pounds since admission. We will continue diuresing this patient with metolazone. His creatinine has been stable. 3. Recently discharged secondary to chronic obstructive pulmonary disease exacerbation. This is stable. 4. Chronic hypoxemia. Aware. Continue with oxygen supplementation. 5. Generalized psoriasis. Aware. 6. Type 2 diabetes. Continue with sliding scale. Hemoglobin A1c is 7.6. 7. Pulmonary arterial hypertension with likely pulmonary parenchymal disease. This can be contributing to his fluid overload. Continue with diuresis. 8. History of lung cancer. Apparently in remission. 9. History of atrial fibrillation. Continue with anticoagulation. cc: Joselito Beal MD
[2016-11-22] MEDS: LEVAQUIN PO SCH (18:46)
[2016-11-22] MEDS: NORCO-7.5 PO PRN (21:07)
[2016-11-22] MEDS: PRAVACHOL PO SCH (21:08)
[2016-11-23] MEDS: DUONEB (A & A) INH SCH ×4 (03:25→15:00)
[2016-11-23] MEDS: HUMULIN R (PARKWAY) SUBQ SCH ×3 (06:11→16:25)
[2016-11-23 08:08] VITALS: BP 130/51
[2016-11-23] MEDS: ZAROXOLYN PO SCH (08:32)
[2016-11-23] MEDS: TENORMIN PO SCH (08:32)
[2016-11-23] MEDS: ELIQUIS PO SCH (08:32)
[2016-11-23] MEDS: HYDROCHLOROTHIAZIDE PO SCH (08:32)
[2016-11-23] MEDS: ASPIRIN PO SCH (08:32)
[2016-11-23] MEDS: MIRALAX PO SCH (08:32)
[2016-11-23] MEDS: PRINIVIL PO SCH (08:32)
[2016-11-23] MEDS: ZYLOPRIM PO SCH (08:32)
[2016-11-23] MEDS: LEVAQUIN PO SCH (16:22)
--- NOTE | 2016-11-23 20:54 | DISCHARGE SUMMARY ---
ADMISSION DATE: 11/16/2016 DISCHARGE DATE: 11/23/2016 ADMISSION DIAGNOSES: 1. Bilateral lower extremity edema and anasarca. 2. Morbid obesity. 3. Right lower and middle lobe pneumonia. 4. Chronic obstructive pulmonary disease with recent exacerbation. 5. Chronic hypoxemia. 6. Psoriasis. 7. Diabetes type 2. DISCHARGE DIAGNOSES: 1. Right lower lung pneumonia. 2. Anasarca. 3. Chronic obstructive pulmonary disease with recent exacerbation. 4. Chronic hypoxemia. 5. Generalized psoriasis. 6. Diabetes type 2. 7. History of lung cancer currently in remission. 8. History of atrial fibrillation. 9. Pulmonary arterial hypertension likely due pulmonary parenchymal disease. SUMMARY OF FINDINGS: This is a 76-year-old male who presents for admission for lower extremity edema and anasarca. He was admitted to the hospital. He had nonpitting edema bilaterally to his lower extremities that extends to about the area of the umbilicus. Chest x-ray showed a mild right lower lobe infiltrate, right middle lobe atelectasis, perihilar atelectasis on the left. He was placed on antibiotics, DuoNebs and we continued his home medications. Wound Care was consulted. He did not have sufficient arterial blood flow for an Unna boots according to the Wound Care nurse so dressings were just applied. He has slowly improved. His does not have any white blood cell count, no fever for greater than 24 hours, and electrolytes are within normal limits. So, today it is felt that he can safely be discharged home. DISCHARGE MEDICATIONS: 1. Allopurinol 100 mg p.o. daily. 2. Eliquis 2.5 mg p.o. b.i.d. 3. Aspirin 81 mg p.o. daily. 4. Tenormin 50 mg p.o. b.i.d. 5. [place] 7.5, 1 p.o. q.8 hours p.r.n. 6. Levaquin 250 mg p.o. daily #10 with no refills. 7. Lisinopril/hydrochlorothiazide 20/25, 1 p.o. daily. 8. Nitroglycerin sublingual p.r.n. 9. Pravastatin 40 mg p.o. at bedtime. 10. DuoNebs q.4 hours. 11. ProAir inhalation q.4 hours p.r.n. 12. Lasix 40 mg p.o. daily. 13. Glipizide 10 mg p.o. b.i.d. 14. Metformin 1000 mg p.o. b.i.d. 15. Januvia 100 mg p.o. at bedtime. FOLLOWUP: He will need to follow up with a physician. We gave him the number for the physician referral line and the [facility]. It does state in his record that he has had Dr. Win as a primary care physician but it is unclear if this is updated and correct. If so he will follow up with him in the next 1-2 weeks. DISCHARGE TIME: 35 minutes. Dictated by ENDY Machuca for Jerrod Yang MD cc: ENDY Machuca MD MTDD
== END 2016-11-23 16:53 | disposition home health service (06) ==
LOC: SUATTDRO 09:28 → P.DIRADM 09:28 → P.MEDSURG 10:06
PROVIDERS: ATTEND Internal Medicine

== ENCOUNTER 2016-11-28 09:43 | Inpatient (IN) ==
[2016-11-28 10:39] LABS: BASO% 0.2 % (0.0-0.8); EOS# 0.11 X1000 (0.0-0.7); EOS% 1.2 % (0.0-10.0); HEMATOCRIT 35.9 % (42.0-52.0); HEMOGLOBIN 11.2 g/dL (14.0-18.0); LYMPH# 1.15 X1000 (1.2-3.4); LYMPH% 12.3 % (20.5-51.1); MANUAL DIFF NEEDED? NO; MCH 31.2 PG (27-31); MCHC 31.2 g/dL (33-37); MONO# 1.31 X1000 (0.11-0.59); MONO% 14.1 % (1.7-9.3); MPV 12.9 FL (7.4-10.4); NEUT% 72.2 % (42.2-75.2); PLT 152 X1000 (130-400); RBC 3.59 XMIL (4.7-6.1)
--- NOTE | 2016-11-28 10:56 | Diag Imaging Result Doc PS360 ---
EXAM: CHEST-1 VIEW HISTORY: sob COMMENT: Compared with the previous study of 11/16/2016 there has been some improvement in the opacities previously present in the right lower lobe but the lingula and lower lobe on the left have worsened. There may additionally be some degree of interstitial pulmonary edema. The heart size remains enlarged. IMPRESSION: Pulmonary edema. Worsened atelectasis and/or pneumonia in the lingula. Electronically signed by Jules De León 11/28/2016 10:54 AM
--- NOTE | 2016-11-28 11:21 | PROVIDER DOCUMENTATION ---
This chart was entered by Kellen Lewis Scribe, acting as scribe for Sloan Ovalle MD. HPI-Respiratory General - General Stated Complaint: low o2 sat/a fib Time Seen by Provider: 11/28/16 10:01 Source: patient Allergies/Adverse Reactions: Patient Allergies Allergy/AdvReac Type Severity Reaction Status Date / Time Penicillins Allergy Mild RASH Verified 11/28/16 10:24 Home Medications: Home Medication List Medication Instructions Recorded Confirmed Last Taken Type Allopurinol 100 mg PO DAILY 07/05/15 11/28/16 11/16/16 08:00 History Apixaban [Eliquis] 2.5 mg PO BID 07/05/15 11/28/16 11/16/16 08:00 History Atenolol [Tenormin] 50 mg PO BID 05/16/16 11/28/16 11/16/16 08:00 History Glipizide 10 mg PO BID 05/16/16 11/28/16 11/16/16 08:00 History Lisinopril/Hydrochlorothiazide 25 mg PO DAILY 05/16/16 11/28/16 11/16/16 08:00 History [Lisinopril-Hctz 20-25 mg Tab] Metformin HCl 1 tab PO BID 05/16/16 11/28/16 11/16/16 08:00 History Sitagliptin Phosphate [Januvia] 100 mg PO HS 05/16/16 11/28/16 11/15/16 21:00 History Aspirin 81 mg PO DAILY 09/24/16 11/28/16 11/16/16 08:00 History Hydrocodone/APAP 7.5 mg/325 mg 1 tab PO Q8H PRN PRN 11/16/16 11/28/16 11/15/16 20:00 History [[place]-7.5] Guaifenesin/Codeine Phosphate 118 ml PO PRN PRN 11/28/16 11/28/16 Unknown History [Cheratussin AC Syrup] - History of Present Illness-Resp Nature of Presenting Problem: Pt is 76 y/o M presents to the ED with SOB. Pt states was going for an evaluation with Dr. Brewer for renal insufficiency, but could not make it due to SOB. Pt denies F. Quality of Pain: reports: tightness Severity in ED: reports: mild Onset/Duration: reports: just prior to arrival Timing: reports: still present Exposure: reports: unknown cause Cough Quality/Degree: reports: no cough Episode Frequency: no prior episodes Current Respiratory Medication Therapy: Initiated see nurses note Modifying Factors: improves with: nothing Associated Symptoms: reports: shortness of breath, other (lethargic). denies: chest pain/soreness, cough, dizziness, earache, facial pain, fever/chills, flu- like symptoms, headache, heart racing, hurts to breathe, hyperventilating, lightheadedness, muscle/bodyaches, nasal congestion, nasal drainage, sinus pain , short of breath, sore throat, sweaty, wheezing Similar Symptoms Previously?: No Recently seen or treated by another doctor?: No Review of Systems - Adult - REVIEW OF SYSTEMS - ADULT Constitutional: reports: no symptoms reported Eyes: reports: no symptoms reported Ears, Nose, Mouth & Throat: reports: no symptoms reported Cardiovascular: reports: no symptoms reported Respiratory: reports: shortness of breath. denies: cough, wheezing Gastrointestinal: reports: no symptoms reported Genitourinary: reports: no symptoms reported Musculoskeletal: reports: no symptoms reported Integumentary: reports: no symptoms reported Neurological: reports: no symptoms reported Psychiatric: reports: no symptoms reported Endocrine: reports: no symptoms reported Hematologic/Lymphatic: reports: no symptoms reported Allergic/Immunologic: reports: no symptoms reported All Other Systems: Reviewed and Negative Past History - Adult - PAST MEDICAL HISTORY-ADULT Review of Records: reports: Nursing Assessment Review, Medications Reviewed, Social history reviewed & non-contributory. Major Childhood Illnesses: reports: denies history Cardiovascular: reports: A-Fib, HTN, hyperlipidemia Respiratory: reports: asthma, COPD, cancer (lung cancer) Gastrointestinal: reports: denies history Obstetrical/Gynecological: reports: denies history Genitourinary: reports: denies history Musculoskeletal: reports: denies history Neurological: reports: denies history Endocrine/Immune: reports: Diabetes Other Conditions: reports: denies history - PRIOR SURGERIES/PROCEDURES Surgical/Procedure History: reports: CABG (x3), cholecystectomy - IMMUNIZATION STATUS Childhood Immunizations: See Nurse Assessment Flu Vaccine: See Nurse Assessment - FAMILY HISTORY Family History: reviewed, not pertinent - SOCIAL HISTORY Smoking: quit greater than 1 year, cigarettes Substance Use: denies Living Situation: family Physical Exam-General - PHYSICAL EXAM-ADULT Initial Vital Signs Reviewed: Yes - CONSTITUTIONAL General Appearance: appears well, no apparent distress, obese, lethargic, slow to respond - EYES Eyes: PERRL/EOMI, pink conjunctivae - HEAD, EARS, NOSE, MOUTH & THROAT HENMT: normocephalic/atraumatic, moist mucous membranes, normal ENT inspection - NECK Neck: non-tender, full range of motion, supple, normal inspection - RESPIRATORY Respiratory: chest non-tender, lungs clear, normal breath sounds - CARDIOVASCULAR Cardiovascular: normal peripheral pulses, regular rate, rhythm - GASTROINTESTINAL (ABDOMEN) Abdominal Exam: normal bowel sounds, non tender, soft - LYMPHATIC Lymphatic: no adenopathy - MUSCULOSKELETAL Back Exam: normal inspection, no CVA tenderness, no vertebral tenderness Extremity: normal range of motion, non-tender, normal gait, normal inspection - SKIN Integumentary: normal color, normal turgor, warm/dry - NEUROLOGIC Neurologic: grossly normal - PSYCHIATRIC Psych/Mental Status: normal mood/affect, oriented x 3 Progress - PLAN OF CARE/RESULTS Progress/Plan/Lab Results: Vital Signs - 8 hr 11/28/16 10:09 Temperature 97.7 F Pulse Rate 75 Respiratory Rate 16 Blood Pressure 112/61 O2 Sat by Pulse Oximetry 88 L Laboratory Results - last 24 hr 11/28/16 11/28/16 11/28/16 09:55 09:55 09:55 WBC 9.32 RBC 3.59 L Hgb 11.2 L Hct 35.9 L MCV 100.0 H MCH 31.2 H MCHC 31.2 L RDW Std Deviation 15.1 H Plt Count 152 MPV 12.9 H Neut % (Auto) 72.2 Lymph % (Auto) 12.3 L Bent % (Auto) 14.1 H Eos % (Auto) 1.2 Baso % (Auto) 0.2 Neut # (Auto) 6.73 H Lymph # (Auto) 1.15 L Bent # (Auto) 1.31 H Eos # (Auto) 0.11 Baso # (Auto) 0.02 Sodium Potassium Chloride Carbon Dioxide Anion Gap BUN Creatinine Estimated GFR/1.73 m2 BUN/Creatinine Ratio Glucose 55 L Calculated Osmolality Calcium Total Bilirubin AST ALT Alkaline Phosphatase Oaf-W-Dlrceggphww Pept 1488 H Total Protein Albumin Globulin Albumin/Globulin Ratio 11/28/16 11:12 WBC RBC Hgb Hct MCV MCH MCHC RDW Std Deviation Plt Count MPV Neut % (Auto) Lymph % (Auto) Bent % (Auto) Eos % (Auto) Baso % (Auto) Neut # (Auto) Lymph # (Auto) Bent # (Auto) Eos # (Auto) Baso # (Auto) Sodium 141 Potassium 6.4 H* Chloride 101 Carbon Dioxide 23 L Anion Gap 17 BUN 77 H Creatinine 7.1 H Estimated GFR/1.73 m2 8 BUN/Creatinine Ratio 11 Glucose 61 L Calculated Osmolality 302 Calcium 8.8 Total Bilirubin 0.46 AST 26 ALT 15 Alkaline Phosphatase 74 Ikb-R-Mshqtadkutq Pept Total Protein 6.7 Albumin 3.7 Globulin 3.0 Albumin/Globulin Ratio 1.2 Orders Category Date Time Status cxr [CHEST-1 VIEW] [RAD] Stat Exams 11/28/16 10:11 Completed ABG [RESP] Routine Lab 11/28/16 11:28 Ordered CBC WITH ELECTRONIC DIFF [HEME] Stat Lab 11/28/16 09:55 Completed COMPREHENSIVE METABOLIC PANEL [CHEM] Stat Lab 11/28/16 11:12 Completed D-DIMER [CHEM] Routine Lab 11/28/16 11:10 Ordered GLUCOSE [CHEM] Stat Lab 11/28/16 09:55 Completed pro-bnp [PRO B-NATRIURETIC PEPTIDE] Stat Lab 11/28/16 09:55 Completed D5 1/2 Ns + KCl 40 Meq 1,000 ml Med 11/28/16 11:31 Discontinued IV 100 mls/hr Dextrose 5%-0.45% NaCl Inj [D5 1/2 Ns] 500 ml Med 11/28/16 11:39 Active IV 100 mls/hr EKG [EKG] Stat Ther 11/28/16 09:51 Ordered Result Diagrams: 11/28/16 09:55 11/28/16 11:12 - XRAY 1 XRAY Study: Chest Impression: Abnormal XRAY Interpretation: pulmonary edema. worsened atelectasis and/or pneumonia in the lingula - CONSULTS/PCP/HOSPITALIST Notification #1 *Consult/PCP/Hospitalist*: Dr Muir Time Discussed: 11:58 Reason/Comments: admit to icu/ hospitalist Departure - Departure Time of Disposition Decision: 11:59 DIAGNOSIS: Renal failure (ARF), acute on chronic Qualifiers: Acute renal failure type: unspecified Chronic kidney disease stage: stage 4 ( severe) Qualified Code(s): N17.9 - Acute kidney failure, unspecified; N18.4 - Chronic kidney disease, stage 4 (severe) Disposition: ADMITTED INPATIENT 09 Certified Medical Emergency: Emergent Condition: Serious Referrals and Follow-Ups: Jed Win MD [Primary Care Provider] - - Critical Care Note This patient required my direct & personal management of CC.: No This chart was documented by the indicated scribe, (Kellen Lewis Scribe) and accurately reflects the services I performed and decisions made by me, Sloan Ovalle MD, as attested by the provider's signature.
--- NOTE | 2016-11-28 11:21 | ED EKG INTERP ---
This chart was entered by Kellen Lewis Scribe, acting as scribe for Sloan Ovalle MD. EKG Interpretation - EKG Time of EKG reading by physician:: 09:51 EKG Read and Signed by:: Sloan Ovalle EKG Interpretation (*Must complete 3 of following elements*): Abnormal ( possible anterolateral infarct, age undetermined) Rate: 75 Rhythm: undetermined rhythm Comments: left axis deviation; inferior infarct, age undetermined This chart was documented by the indicated scribe, (Kellen Lewis Scribe) and accurately reflects the services I performed and decisions made by me, Sloan Ovalle MD, as attested by the provider's signature.
[2016-11-28] MEDS ORDERED: D5 1/2 NS + KCL 40 MEQ 1,000 ML IV ONE (11:31)
[2016-11-28] MEDS ORDERED: D5 1/2 NS 500 ML IV ONE ×2 (11:39→12:33)
[2016-11-28 11:42] LABS: ALBUMIN 3.7 g/dL (3.5-5.0); CALCIUM 8.8 mg/dL (8.8-10.2); TOTAL BILIRUBIN 0.46 mg/dL (0.20-1.00); TOTAL PROTEIN 6.7 g/dL (6.3-8.3)
[2016-11-28 11:46] LABS: POTASSIUM 6.4 mmol/L (3.5-5.1)
[2016-11-28 11:58] LABS: ALLEN TEST YES; BE -5.8 mmoll (-3.0-3.0); BLOOD TYPE ARTERIAL; DRAW SITE R RADIAL; METHB 1.2 % (0.0-1.5); O2(CT) 14.7 mL/dL (15.0-23.0); PCO2(98.6) 58 mmHg (35-45); PO2(98.6) 82 mmHg (60-100); SAMPLE BLOOD; SAO2 97.1 % (95.0-100.0); THB 11.1 g/dL (11.5-17.4)
--- NOTE | 2016-11-28 11:58 | EKG Report ---
Test Performed on : 11/28/2016 09:51:44 AM Test Reason : CHF Blood Pressure : / mmHG Vent. Rate : 075 BPM Atrial Rate : 113 BPM P-R Int : 000 ms QRS Dur : 098 ms QT Int : 394 ms P-R-T Axes : 000 -48 114 degrees QTc Int : 439 ms Undetermined rhythm Left axis deviation Inferior infarct (cited on or before 18-NOV-2012) Possible Anterolateral infarct (cited on or before 18-NOV-2012) Abnormal ECG When compared with ECG of 28-NOV-2016 09:51, (Unconfirmed) Current undetermined rhythm precludes rhythm comparison, needs review Serial changes of evolving Anterior infarct present Serial changes of evolving Anterolateral infarct present Serial changes of evolving Inferior infarct present Unconfirmed Result
[2016-11-28 12:01] LABS: MODALITY VENTIMASK
[2016-11-28] MEDS ORDERED: VANCOMYCIN IV PER PHARMACY MISC SCH (12:30)
[2016-11-28] MEDS ORDERED: CALCIUM GLUCONATE IV PUSH ONE (13:07)
[2016-11-28] MEDS ORDERED: SODIUM BICARBONATE 8.4% IV PUSH ONE (13:07)
[2016-11-28] MEDS ORDERED: DUONEB (A & A) INH PRN (13:34)
[2016-11-28] MEDS ORDERED: VANCOMYCIN 1,500 MG in NS 250 ML IV ONE (14:00)
[2016-11-28] MEDS: MERREM 500 MG in NS 50 ML IV SCH ×2 (14:07→20:29)
[2016-11-28] MEDS ORDERED: NS 250 ML ONE (14:40)
--- NOTE | 2016-11-28 14:57 | HISTORY AND PHYSICAL ---
PRIMARY CARE PHYSICIAN: Dr. Jed Win. SERVICE ORDER DISPATCHER CHIEF: Dr. Mainor Escobedo. CHIEF COMPLAINT: Altered mental status and respiratory failure. HISTORY OF PRESENT ILLNESS: Mr. Ponce is a 76-year-old male with extensive medical history which includes COPD, morbid obesity, type 2 diabetes, who was recently discharged from [facility] [place] on 11/23/2016 with community-acquired pneumonia. The patient is unable to give history at this time secondary to mental and respiratory status. Ex- and daughter are at the bedside, able to answer questions. He got home on Saturday and on Saturday he started having progressively worse weakness and worsening shortness of breath. He did not get out of bed since that time. Yesterday, he became confused and his respiratory status worsened and, today, he was supposed to go see Dr. Escobedo for followup but could not make it because of his respiratory status. Dr. Escobedo's office recommended the patient come to the ER for immediate stabilization. When the patient got to the ER, he had labs and diagnostics done. His creatinine was noted to be 7.1 with a BUN of 77. Chest x-ray showed pulmonary edema and worsen atelectasis and/or pneumonia in the lingula. He also has a potassium of 6.4. Dr. Escobedo has been notified , and the patient will start dialysis today. In the meantime, we have placed him on BiPAP as he is having some respiratory failure. Blood cultures have been ordered as well as broad- spectrum antibiotics, and we are going to admit him to the ICU for further treatment and evaluation. PAST MEDICAL HISTORY: 1. COPD. 2. Obesity. 3. Recent community-acquired pneumonia. 4. CAD. 5. Chronic atrial fibrillation. 6. Type 2 diabetes. 7. B12 deficiency. 8. Non-small cell lung cancer. PAST SURGICAL HISTORY: He has had coronary bypass grafting. He has had a cholecystectomy. He has had a pulmonary nodule radiosurgery. SOCIAL HISTORY: He lives with his ex- and his daughter who helps take care of him. REVIEW OF SYSTEMS: Unable to be obtained. ALLERGIES: Penicillin. HOME MEDICATIONS: 1. Allopurinol 100 mg daily. 2. Eliquis 2.5 mg b.i.d. 3. Aspirin 81 mg daily. 4. Tenormin 50 mg b.i.d. 5. Glipizide 10 mg b.i.d. 6. Codeine cough syrup as directed. 7. [place] 7.5 every 8 hours as needed. 8. Lisinopril hydrochlorothiazide 225 mg daily. 9. Metformin 1000 mg b.i.d. 10. Januvia 100 mg p.o. at bedtime. PHYSICAL EXAMINATION: VITAL SIGNS: Blood pressure 75/35, heart rate 72,, respiratory rate is 26, O2 saturations 94% on 50% Ventimask. GENERAL: This is a morbidly obese, male, lying in the hospital bed in respiratory distress and slightly lethargic. NEUROLOGIC: The patient will follow commands but he is confused. No overt focal deficits are noted. HEENT: Head is atraumatic, normocephalic. His pupils are equal, round, and reactive to light. Oral mucosa is dry. Trachea is midline. Neck is supple. CHEST: Severely diminished throughout, left greater than right, with bibasilar crackles. CV: Irregular. GI: Soft, nondistended, nontender. Bowel sounds positive. EXTREMITIES: 2+ pitting edema bilaterally with diminished pulses. DIAGNOSTIC DATA: Chest x-ray shows worsening pulmonary congestion with lingular atelectasis versus pneumonia. EKG shows atrial fibrillation at 75 beats per minute with nonspecific ST and T abnormalities. WBC 9.32, hemoglobin 11.2, hematocrit 35.9, platelet count 152,000. ABG on 50% Venti: pH 7.2, PCO2 of 58, O2 of 82, bicarb 20.3, lactate 1.2. Sodium 141, potassium 6.4, chloride 101, CO2 of 23, anion gap 17. BUN 77, creatinine 7.1, glucose 61, calcium 8.8, bilirubin 0.46. AST 26, ALT 15, alkaline phosphatase 74. ProBNP 1488. Albumin 3.7. ASSESSMENT AND PLAN: 1. Acute respiratory failure: Secondary to fluid volume overload which is likely secondary to his renal failure. We are putting him on BiPAP and giving him aggressive breathing treatments, pulmonary toilet, and broad-spectrum antibiotics. We will check daily ABGs and chest x-ray. 2. Acute kidney injury: Acute rise in creatinine coupled with hypotension and oliguria is compatible with pre-renal azotemia. We will consult Dr. Escobedo and check a renal US. Unfortunately his hypotension precludes dialysis at this time.He has hyperkalemia which we are treating with sodium bicarb, breathing treatment, calcium. We will recheck a BMP now. 3. Healthcare associated pneumonia: We are going to collect blood cultures and lactic acid, start vancomycin and meropenem. 4. Diabetes mellitus: We will add pattern sugars and sliding scale insulin. 5. Hypotension: The patient does not have a white count nor is he overtly tachycardic. We are going to check a lactic acid. He likely has true intravascular depletion but we will need to be cautious giving IVF given SUZY and resp failure. Dr. Escobedo has been consulted. Ultimately, the patient may need dialysis. 6. Atrial fibrillation: Chronic and stable. Will continue his Eliquis and aspirin. 7. CAD: Last echocardiogram was done in 09/2016 that shows EF 60%. We will optimize his medications. Follows strict Is and Os and daily weights. 8. Deep venous thrombosis prophylaxis will be provided with his Eliquis. Recommendations to follow. Critical care with this patient at this time is 45 minutes. Dictated by ENDY Perez for Joselito Beal MD cc: ENDY Perez MD MTDD
[2016-11-28 15:26] LABS: INR 1.08; PROTIME 11.4 Seconds (9.2-11.7)
[2016-11-28 15:44] LABS: ALBUMIN 3.5 g/dL (3.5-5.0); CALCIUM 8.8 mg/dL (8.8-10.2); POTASSIUM 6.3 mmol/L (3.5-5.1)
[2016-11-28] MEDS ORDERED: D50W SYRINGE IV ONE (15:54)
[2016-11-28] MEDS ORDERED: ALBUTEROL 0.5% INH CONC FOR HYPERKALEMIA INH ONE ×2 (15:54→22:03)
[2016-11-28] MEDS ORDERED: HUMULIN R IV ONE (15:54)
--- NOTE | 2016-11-28 16:28 | Diag Imaging Result Doc PS360 ---
EXAM: CHEST-PORTABLE HISTORY: picc placement COMPARISON: To exam taken earlier. FINDINGS: Interval placement of a right-sided PICC line. The tip overlies the right atrium near the junction with superior vena cava. No other interval change. IMPRESSION: The tip of the right-sided PICC line overlies the right atrium. Electronically signed by Melvin Dahl 11/28/2016 4:25 PM
--- NOTE | 2016-11-28 16:42 | CONSULTATION ---
DATE OF CONSULTATION: 11/28/2016 REASON FOR CONSULTATION: Acute kidney injury. HISTORY OF PRESENT ILLNESS: Mr. Ponce is a 76-year-old white male with obesity, diabetes, coronary disease, hypertension, obstructive sleep apnea, etc. He was just hospitalized at [facility] last week with volume overload, possible pneumonia. His kidney function was normal at that time. After discharge, he still is not feeling well and becoming progressively less mobile. He saw his primary care provider, who ordered laboratories and found his creatinine to be 4.4, so they referred him to our office. The ambulance went to pick him up this morning, but found him hypoxemic and short of breath, and he was therefore diverted to the emergency room. His symptoms have been progressively worse, with only modest improvement while he was in the hospital. No chills or fevers. No cough, sputum, nausea, or vomiting. Swelling has been persistent. He has never had problems with kidney dysfunction before. He has not made urine in 5 days, by the family's report. They relate that he had a Curran catheter placed without any output. There is not a Curran catheter currently in place. PAST MEDICAL HISTORY: As above. HOME MEDICATIONS: Apixaban, allopurinol, glipizide, sitagliptin, lisinopril, hydrochlorothiazide, metformin, atenolol, aspirin, hydrocodone, and guaifenesin. ALLERGIES: Penicillin. SOCIAL HISTORY: He is , but lives with his ex-. Former smoker. FAMILY HISTORY: Otherwise noncontributory. REVIEW OF SYSTEMS: Otherwise noncontributory. PHYSICAL EXAMINATION: Vital Signs: Blood pressure 75/35, heart rate 72, respirations 18, afebrile, saturation 94% on BiPAP General: He is an obese, white male, lying at 30 degrees. He is awake and alert, and able to answer questions. Skin: Warm and dry, with multiple ecchymoses. Conjunctivae are pink. Pupils are equal. Oropharynx is dry. Tongue is midline. Neck: Supple. Neck veins are not visible. Trachea is midline. Heart: Regular, distant, tachycardic. No gallops or murmurs. Lungs: Equal breath sounds, shallow, diffuse scattered crackles. Abdomen: Obese and soft. No palpable masses. No organomegaly. Normal bowel sounds. Extremities: Have 1+ edema. No clubbing or cyanosis. LABORATORY DATA: Sodium 141, potassium 6.4, chloride 101, bicarbonate 23, BUN 77, creatinine 7.1. Hemoglobin 11.2. IMPRESSIONS: 1. Acute kidney injury. I expect that this is prerenal in origin, related to his hypotension and recent diuretic therapy. I have discussed the case with Cardiology and asked for their assistance with management. We will begin norepinephrine pending their evaluation. Left ventricular ejection fraction was greater than 60 in September of this year. EKG has no discernible P waves, but no peaked T-waves or other hyperkalemic findings. 2. Hyperkalemia. As above. Will treat medically today. Recheck his potassium this evening. 3. Acute kidney injury. Renal ultrasound, Curran catheter, optimize cardiac status. Re-evaluate thereafter. His blood pressure is too low to consider dialysis today. 4. Acid-base: Respiratory acidosis. On BiPAP. cc: Mainor Escobedo MD
--- NOTE | 2016-11-28 17:18 | CONSULTATION ---
DATE OF CONSULTATION: 11/28/2016 INDICATION FOR CONSULTATION: Shortness of breath. HISTORY OF PRESENT ILLNESS: Mr. Ponce is a 76-year-old white male with a history of COPD, coronary disease, and atrial fibrillation. The patient is not able to provide any sort of history because he basically motors unintelligible noises and also has a BiPAP in place. The patient is able to follow commands and understands what you are saying to him, but he is unable to provide any understandable communication. All history is obtained via a daughter and ex - present in the room. Apparently, the patient has had issues with shortness of breath and worsening weakness over the last month, worsening over the last few days or so. The patient has had very limited oral intake over the last several days, but has continued taking his medications including his diuretic. Today he was supposed to go to Dr. Escobedo's office for an initial evaluation. An ambulance showed up to provide transport, and they brought him to the ER instead since the patient was somnolent and so weak. In the ER, the patient has undergone evaluation, which initially shows significant elevations of his BUN and creatinine, as well as potassium. The patient is currently on a BiPAP, and again, he is unable to provide any history. PAST MEDICAL HISTORY: 1. Significant for morbid obesity. 2. COPD. 3. Recent pneumonia. 4. Coronary artery disease. 5. Atrial fibrillation. 6. Type 2 diabetes. 7. B12 deficiency. 8. History of lung cancer, followed by Dr. Arana, as well as Dr. Oconnor. The patient had an initial treatment with recurrence and recently had XRT and a biopsy performed. The patient apparently has had good response to those treatments. SOCIAL HISTORY: He lives with his ex- and his daughter who help take care of him. FAMILY HISTORY: Significant for hypertension. REVIEW OF SYSTEMS: Unable to be obtained secondary to the patient's inability to communicate. PHYSICAL EXAMINATION: Vital Signs: During this emergency room evaluation, he has been afebrile. His heart rate is in the 60s to 70s. His blood pressure is 122/64. General: He is in no acute distress. HEENT: Oropharynx is moist. He has poor dentition. His eye examination is pink conjunctivae. White sclerae. Neck: Examination is unable to be examined secondary to extremely short neck with the significant neck girth and BiPAP being in place. No obvious thyromegaly. Cardiovascular: He sounds to be in an irregularly irregular rhythm. This is consistent with his atrial fibrillation. He has 1+ lower extremity edema, mildly cool extremities. Chest: Exam is very difficult. It is very distant. No obvious rales or wheezes were heard. Abdomen: Soft, nontender. Extremely protuberant, extremely obese. There is no obvious organomegaly, but very limited examination secondary to the obesity. Skin: Exam is warm and dry throughout. He does have a bandaged ulcer on the anterior of the left shah. Neurological: He is following commands. He is moving all extremities. He has no obvious lateralizing deficits. Psychiatric: Unable to be performed secondary to inability to communicate. PERTINENT DATA: He had an echocardiogram in September 2015 that shows mild left ventricular hypertrophy. He has moderate aortic stenosis present as well. His mean gradient on that study was 28. He had mild AI, moderate TR. His RV systolic pressure was 70. He had an EKG here that shows a rate of 75 beats per minute. His baseline rhythm appears to be atrial fibrillation. He has a relatively regular rhythm at 75 beats per minute. He has a narrow complex. His chest x-ray was reviewed. It demonstrates evidence for pulmonary edema, worsening atelectasis and/or pneumonia in the lingula. His white count is 9.3, his hematocrit is 35.9, his platelet count is 152,000. His INR is 1.08. His ABG shows a pH of 7.2, pCO2 of 58 with a PO2 of 82. His lactate level is 1.2. His sodium is 141, potassium 6.4. His BUN is 77 with a creatinine 7.1; on November 22, they were 26 and 1.2 respectively. His proBNP was 1488. His albumin level is 3.7. ASSESSMENT: 1. Dyspnea with respiratory failure. 2. Acute kidney injury. PLAN: I believe the patient is most likely volume depleted. If he had significant volume overload, I believe his proBNP would be significantly more elevated, especially with respiratory compromise, in the setting of his renal insufficiency. In addition, the history lately would support volume depletion considering very poor oral intake, very limited the urine output, and continued use of diuretics. I would obtain a noncontrast CT of his chest to evaluate his lungs a little better. I believe his body habitus would make the chest x-ray difficult to interpret, and this will allow better clarification to whether he truly has pulmonary edema or not. I would likely recommend cessation of his diuretics and continued fluids, but we will follow up on the chest CT first. I agree with antibiotics. I agree with holding the apixaban considering his recent renal insufficiency. We will check a limited echocardiogram to evaluate his EF, as well as for pericardial effusion, and his right heart chambers. cc: Cristiano Ramirez MD MTDD
[2016-11-28] MEDS: HUMALOG SUBQ SCH ×2 (17:36→20:04)
[2016-11-28] MEDS: DUONEB (A & A) INH SCH ×3 (17:40→23:26)
[2016-11-28] MEDS: NEO-SYNEPHRINE 50 MG in NS 250 ML IV SCH (17:41)
[2016-11-28] MEDS: PROTONIX IV SCH (17:51)
[2016-11-28] MEDS: SODIUM CHLORIDE 0.9% INJ SCH (17:51)
[2016-11-28 18:42] LABS: URINE CULTURE NEEDED? NO; URINE SOURCE CATH
[2016-11-28 18:44] LABS: URINE MICRO REVIEW NEEDED? YES
[2016-11-28 18:45] LABS: BILIRUBIN URINE MODERATE (NEGATIVE); BLOOD URINE LARGE (NEGATIVE); COLOR ORANGE; GLUCOSE URINE NEGATIVE (NEGATIVE); LEUKOCYTES URINE NEGATIVE (NEGATIVE); NITRITE URINE NEGATIVE (NEGATIVE); PROTEIN URINE 100 mg/dL (NEGATIVE); SP GRAVITY URINE 1.027; TURBIDITY URINE HAZY (CLEAR); UR EPITHELIAL CELLS <10 /HPF (<10); URINE BACTERIA NEGATIVE /HPF; URINE RBC 20-40 /HPF (<10); URINE WBC <10 /HPF (<10); UROBILINOGEN URINE NORMAL (NORMAL)
[2016-11-28 18:52] LABS: URINE CASTS NONE SEEN; URINE CRYSTALS NONE SEEN; URINE SMALL ROUND CELLS NONE SEEN
[2016-11-28] MEDS: ELIQUIS PO SCH (20:29)
[2016-11-29] MEDS ORDERED: HYDROXYZINE PO ONE (00:40)
[2016-11-29] MEDS ORDERED: HALDOL IV ONE (02:52)
[2016-11-29] MEDS: DUONEB (A & A) INH SCH ×6 (03:24→23:15)
[2016-11-29] MEDS: MERREM 500 MG in NS 50 ML IV SCH ×3 (03:34→19:41)
[2016-11-29 05:48] LABS: HEMOGLOBIN 9.7 g/dL (14.0-18.0); MCH 31.5 PG (27-31); MCHC 31.3 g/dL (33-37); MCV 100.6 FL (81-99); MPV 12.6 FL (7.4-10.4); RBC 3.08 XMIL (4.7-6.1)
[2016-11-29 06:01] LABS: ALBUMIN 3.3 g/dL (3.5-5.0); CALCIUM 8.8 mg/dL (8.8-10.2)
[2016-11-29 06:08] LABS: POTASSIUM 6.1 mmol/L (3.5-5.1)
[2016-11-29] MEDS: HUMALOG SUBQ SCH ×4 (06:23→20:09)
[2016-11-29] MEDS ORDERED: D50W SYRINGE IV ONE ×2 (06:32→15:24)
[2016-11-29] MEDS ORDERED: ALBUTEROL 0.5% INH CONC FOR HYPERKALEMIA INH ONE ×2 (06:32→15:24)
[2016-11-29] MEDS ORDERED: HUMULIN R IV ONE ×2 (06:32→15:24)
--- NOTE | 2016-11-29 07:46 | Diag Imaging Result Doc PS360 ---
EXAM: CHEST-PORTABLE HISTORY: dyspnea COMPARISON: 11/28/2016 FINDINGS: There is stable cardiomegaly. There is been mild decrease in perihilar infiltrate on the left. No other interval changes are identified. PICC remains in place. IMPRESSION: Stable cardiomegaly. Mild decrease in perihilar infiltrate on the left. Electronically signed by Jean Pierre Burt 11/29/2016 7:44 AM
[2016-11-29] MEDS ORDERED: NS 1,000 ML IV SCH (07:50)
[2016-11-29] MEDS ORDERED: NS 500 ML ONE (08:04)
[2016-11-29] MEDS: ELIQUIS PO SCH ×2 (09:20→09:21)
[2016-11-29] MEDS: ASPIRIN PO SCH ×2 (09:20→09:21)
--- NOTE | 2016-11-29 10:06 | PROGRESS NOTE ---
DATE: 11/29/2016 SUBJECTIVE: This patient is lying on the bed. He is getting oxygen through a mask. He has mild respiratory distress. He is lethargic. He is not following commands. He localized with pain stimulation. Cardiology and nephrology are on board. OBJECTIVE: Vital Signs: Temperature 98 degrees, pulse 93, respiratory rate 17, blood pressure 112/68, oxygen saturation 92 on a Venturi mask 50% oxygen flow. HEENT: Head normocephalic. No trauma. PERRLA. Neck: I do not see JVD because of the neck size. Central trachea. Cardiovascular: Irregular rate and rhythm. Chest: Decreased breath sounds globally. Left side is greater than right with crackles bilaterally. Abdomen: Soft, nondistended. Positive bowel sounds. Extremities: There is 3+ lower extremity edema. Neurological Examination: The patient is lethargic. He is not following commands. He localizes with pain stimulation. Laboratory: WBC 10.2, hemoglobin 9.7, hematocrit 31, platelets 133,000. Sodium 140, potassium 6.1, chloride 101, bicarbonate 23, BUN 88, creatinine 7.1, glucose 93, calcium 8.8, phosphorus 10.8. ASSESSMENT AND PLAN: 1. Acute respiratory failure. This is likely secondary to fluid overload. This patient has an acute kidney injury and the urine output is low. We will continue with breathing treatment, pulmonary toilet, and antibiotics. X-ray done today showed a stable cardiomegaly, mild decrease in perihilar infiltrate on the left. 2. Acute on chronic kidney disease. Nephrology department has been consulted. Probably this patient will need to be dialyzed in the near future. We will follow their recommendations. 3. Possible pneumonia. We will continue with broad spectrum antibiotics. 4. Hyperkalemia. We will treat the hyperkalemia medically for now with insulin, respiratory treatment, and glucose. 5. Type 2 diabetes. Continue with pattern of blood sugar and sliding scale insulin. 6. Hypotension. This patient at this moment is on pressors. This is likely related to severe intravascular volume depletion. We will monitor. 7. Atrial fibrillation. This is chronic and stable. Continue with the same management. 8. History of coronary artery disease. Cardiology is on board. They will check again a new echocardiogram. 9. Deep vein thrombosis prophylaxis. This patient is on Eliquis. CRITICAL CARE TIME: 45 minutes. cc: Joselito Beal MD
[2016-11-29 10:22] LABS: ALLEN TEST YES; BE -6.9 mmoll (-3.0-3.0); BLOOD TYPE ARTERIAL; DRAW SITE L RADIAL; METHB 0.4 % (0.0-1.5); O2(CT) 13.7 mL/dL (15.0-23.0); PO2(98.6) 95 mmHg (60-100); SAMPLE BLOOD; SAO2 99.8 % (95.0-100.0)
[2016-11-29 10:24] LABS: MODALITY VENTIMASK; PCO2(98.6) 56 mmHg (35-45); pH(98.6) 7.19 (7.35-7.45)
--- NOTE | 2016-11-29 11:22 | PROGRESS NOTE ---
DATE: 11/29/2016 TIME SEEN: 0735. SUBJECTIVE: Mr. Ponce is resting quietly in bed. He does make eye contact, though he remains nonverbal and very lethargic. OBJECTIVE: Vital Signs: His most recent vital signs are temperature 98.2 degrees, blood pressure 107/55, heart rate 92, and respirations are 20. He remains on a Venturi mask at 50%. Last recorded saturation is 99%. Head of the bed is elevated. He has had 925 out per Curran catheter. PHYSICAL EXAMINATION: General: This is a 76-year-old white male. He appears chronically ill. He is in no acute distress. Skin: Warm and dry. HEENT: Normocephalic, atraumatic. Conjunctivae pale. He has MOUNA. Mucous membranes are dry. Neck: Supple. Trachea midline. Unable to determine JVD at the level of head of bed. Cardiovascular: Slightly irregular rate and rhythm. He is slightly tachycardic. No murmur or gallop appreciated. Lungs: Have bilateral rhonchi with course breathe sounds and both on inspiratory and expiratory effort. He remains on O2 per face mask. Equal excursion. Abdomen: Obese, soft, nontender. Positive bowel sounds. Extremities: Have 1+ lower extremity edema. No clubbing or cyanosis. Genitourinary: Curran catheter is in place. Neurological: as mentioned above. LABORATORIES: Sodium 140, potassium 6.1, chloride 101, CO2 of 23, BUN 88, creatinine 7.1, glucose 93, anion gap is 16, calcium 8.8, phosphorus 10.8, albumin 3.3. White count 10.28, hemoglobin 9.7, hematocrit 31, platelet count 133,000. Urinalysis is positive for proteinuria and hematuria. We have not completed urine electrolytes. IMAGING: Chest x-ray this a.m. indicates stable cardiomegaly with mild decrease in perihilar infiltrates on the left. ASSESSMENT AND PLAN: 1. Acute kidney injury. We do not have any urine electrolytes. These will be ordered today. We did have the nurse place central venous pressure line to check for intravascular volume depletion. It is indicated that his CVP is 22 after recheck. He continues on a Maurizio- Synephrine drip. He has had adequate urine output. He is saturating well per face mask. There is no indication for intervention at this time. We will continue to monitor and evaluate to determine if the patient requires any diuretic therapy. 2. Fluid volume status. Discussed directly with Dr. Ramirez. We still think he is volume contracted. Will give IV fluids overnight and observe his response. CT did not find pulmonary edema. May need Pulm consult. rg 3. Electrolytes and acid-base balance. Patient continues with hyperkalemia. He has been medically treated by the hospitalists, with repeat laboratories in the hour. 4. Acid-base balance. This does remain stable. 5. Anemia. This remains low, but stable. 6. Pneumonia to the right middle and lower lobes. He continues on renal-dosed antibiotic of Merrem. No need for changes or intervention. I would like to thank you for allowing us to follow with this patient. Seen, data reviewed, discussed with Tomas Ramírez on 11/29/16. I agree with the above assessment and plan of care. rg Dictated by ENDY Lipscomb for Mainor Escobedo MD cc: ENDY Lipscomb MD [facility]
[2016-11-29] MEDS: NEO-SYNEPHRINE 50 MG in NS 250 ML IV SCH ×2 (12:57→21:41)
--- NOTE | 2016-11-29 14:38 | PROGRESS NOTE ---
DATE: 11/29/2016 SUBJECTIVE: Presently, he is lying in bed. He is on BiPAP. He is not able to respond very well presently. PHYSICAL EXAMINATION: Vital Signs: He is afebrile, heart rate 86, blood pressure 105/55. His I's and O's thus far are essentially flat, positive around 100 mL. General: He is in no acute distress. Appears ill. Cardiovascular: He sounds to be in a regular rate and rhythm. I do not hear any obvious murmurs. No S3. He has 1+ lower extremity edema. Warm and well perfused lower extremities. Chest: Has coarse bilateral breath sounds. Very difficult, very distant breath sounds. No increased work of breathing. Abdomen: Soft, nontender, nondistended. PERTINENT DATA: White count is 10.2, hematocrit 31, platelet count 133,000. His ABG shows a pH of 7.19, pCO2 of 56, PO2 of 95. His FiO2 was 192. His sodium is 140, potassium 6.1. His BUN is 88, creatinine 7.1. His albumin is 3.3. ASSESSMENT: Respiratory failure. PLAN: We will proceed with non-contrast CT of his chest. I am unclear why that order was not completed yesterday. Again, his history prior to the presentation would suggest volume depletion, as he has very poor oral intake with continued use of diuretics. His central venous pressure does appear to be elevated and we may be dealing with right heart issues or having difficulty getting volume through his lungs due to elevated pulmonary artery pressures. We will follow up on the CT scan. If there is suggestion of pulmonary edema on the CT, then we will likely proceed with diuretics. cc: Cristiano Ramirez MD
--- NOTE | 2016-11-29 14:57 | Diag Imaging Result Doc PS360 ---
CT THORAX W/O CONTRAST - 11/29/2016 INDICATION: hypoxia COMPARISON: 06/21/2016 FINDINGS: There are small bilateral pleural effusions. There is a multifocal scarring in the left lung and left upper lobe. This is similar to prior, but has increased in the extent. No significant infiltrates on the right side. There are sternotomy wires. There is moderate cardiomegaly. Upper abdominal images are grossly unremarkable. There are moderate degenerative changes of the spine. No acute or suspicious bony lesion. IMPRESSION: 1. Small bilateral pleural effusions. 2. Worsening infiltrate or atelectasis in the left upper lobe. 3. Cardiomegaly. Electronically signed by Yogi Vu 11/29/2016 2:55 PM
--- NOTE | 2016-11-29 15:33 | Diag Imaging Result Doc PS360 ---
US RENAL 2 (RETROPER) COMPLETE - 11/29/2016 INDICATION: decreased renal function COMPARISON: 11/08/2016 FINDINGS: The exam is challenging due to the patient's body size. The kidneys and urinary bladder are normal and unchanged from prior. No hydronephrosis or mass. The right kidney measures 11.7 x 6.6 x 7.9 cm. The left kidney measures 11.6 x 6.6 x 6.9 cm. Cortex measures 11 mm bilaterally. IMPRESSION: Negative exam. Electronically signed by Yogi Vu 11/29/2016 3:31 PM
[2016-11-29] MEDS: SODIUM CHLORIDE 0.9% INJ SCH (15:50)
[2016-11-29] MEDS: PROTONIX IV SCH (15:50)
[2016-11-29] MEDS: D5 1/2 NS 1,000 ML IV SCH (15:50)
[2016-11-29 16:13] LABS: UR CREAT RANDOM 255.7 mg/dL (14-26); UR PROT RANDOM 109.7 mg/dL
[2016-11-29] MEDS: HALDOL IM PRN (19:00)
[2016-11-30] MEDS: HALDOL IM PRN ×4 (00:53→20:08)
[2016-11-30] MEDS: DUONEB (A & A) INH SCH ×6 (03:10→22:50)
[2016-11-30] MEDS: MERREM 500 MG in NS 50 ML IV SCH ×3 (03:30→20:07)
[2016-11-30] MEDS: D5 1/2 NS 1,000 ML IV SCH ×2 (03:58→18:15)
[2016-11-30 05:37] LABS: HEMATOCRIT 28.8 % (42.0-52.0); HEMOGLOBIN 9.1 g/dL (14.0-18.0); MCH 30.7 PG (27-31); MCHC 31.6 g/dL (33-37); MCV 97.3 FL (81-99); MPV 11.6 FL (7.4-10.4); RBC 2.96 XMIL (4.7-6.1)
[2016-11-30 05:59] LABS: ALBUMIN 3.3 g/dL (3.5-5.0); CALCIUM 8.5 mg/dL (8.8-10.2); POTASSIUM 4.7 mmol/L (3.5-5.1)
[2016-11-30] MEDS: NEO-SYNEPHRINE 50 MG in NS 250 ML IV SCH ×3 (06:11→21:52)
[2016-11-30] MEDS: HUMALOG SUBQ SCH ×4 (06:13→20:09)
--- NOTE | 2016-11-30 07:17 | Diag Imaging Result Doc PS360 ---
CHEST-PORTABLE - 11/30/2016 INDICATION: dyspnea TECHNIQUE: COMPARISON: 11/29/2016 FINDINGS: Stable right PICC line. Stable significant cardiomegaly and pulmonary vascular congestion. Stable bandlike opacity in the left upper lobe. IMPRESSION: No change from prior. Electronically signed by Yogi Vu 11/30/2016 7:15 AM
[2016-11-30] MEDS ORDERED: NS 500 ML ONE (07:30)
--- NOTE | 2016-11-30 08:57 | PROGRESS NOTE ---
DATE: 11/30/2016 SUBJECTIVE: When I evaluated this patient, this patient was sitting on the bed. He is alert. He is oriented x2. He is not oriented in time. He is following commands and answering most of my questions. No family members at the bedside. OBJECTIVE: Vital Signs: Temperature 97.6 degrees, pulse 90, respiratory rate on the monitor is 18, blood pressure on the monitor 111/60. Oxygen saturation on the monitor 100% on a Venturi mask 40% oxygen flow. HEENT: Head normocephalic. No trauma. PERRLA. Neck: I do not see JVD because of the neck size. Central trachea. Cardiovascular: Irregular rate and rhythm. Chest: Decreased breath sounds globally. Left side is greater than right with crackles bilaterally. Abdomen: Soft, obese, protuberant. Positive bowel sounds. Extremities: There is 3+ lower extremity edema. Neurological Examination: The patient is alert and oriented x2. He is following commands. He is answering most of my questions appropriately. Genitourinary: There is evidence of hematuria. We did not see this problems yesterday. Probably, this is traumatic. Probably, this patient tried to pull out the Curran catheter. I will continue to monitor. Laboratory: WBC 8.1, hemoglobin 9.1, hematocrit 28.8, platelets 109,000. Sodium 143, potassium 4.7, chloride 104, bicarbonate 23, BUN 93, creatinine 5.4, glucose 178, calcium 8.5, phosphorus 8.3. Albumin 3.3. ASSESSMENT AND PLAN: 1. Acute respiratory failure, likely secondary to fluid overload. This patient has an acute kidney injury and decreased urine output. The urine output has been close to a liter for 24 hours. 2. Acute on chronic kidney disease. Nephrology department has been following this patient. Probably this patient will need to be dialyzed in the near future. We will follow their recommendations. 3. Possible pneumonia. Continue with broad spectrum antibiotics. 4. Thrombocytopenia. To monitor. 5. Hyperkalemia. Today, the potassium is normal. Continue to monitor. 6. Type 2 diabetes. Continue with pattern of blood sugar and sliding scale insulin. 7. Hypotension. This patient at this moment is on pressors. We will continue with the same management for now. 8. History of coronary artery disease. Cardiology is on board. We will continue to monitor. 9. Deep vein thrombosis prophylaxis. This patient has been on Eliquis but has been stopped. At this moment, this patient is on aspirin. We will continue with the same management for now. 10. Left lower extremity lesion at the level of the left lower leg. I will consult wound care. 11. Critical care time, 45 minutes. cc: Joselito Beal MD
[2016-11-30] MEDS: ASPIRIN PO SCH (09:09)
--- NOTE | 2016-11-30 14:30 | PROGRESS NOTE ---
DATE: 11/30/2016 SUBJECTIVE: He remains somnolent, but he is arousable today and does try to answer my questions though his answers are not very . OBJECTIVE: Vital Signs: Blood pressure 111/70, heart rate 96, respirations 17, afebrile. Intake 2 L. Output 1 L. PHYSICAL EXAMINATION: Obese, white male, lying at 30 degrees on a closed face mask but off of BiPAP. No acute distress. Skin is warm and dry with ecchymoses. Conjunctivae are pink. Pupils are equal. Oropharynx is moist. Neck veins are not appreciated. Heart is regular. Lungs have equal breath sounds. Coarse with few crackles. Abdomen is obese and soft. Bowel sounds are present. Extremities have 2+ edema. No clubbing or cyanosis. LABORATORY DATA: Sodium 143, potassium 4.7, chloride 104, bicarbonate 23. BUN 93, creatinine 5.4, hemoglobin 9.1. IMPRESSION: 1. Acute kidney injury. Creatinine is improving progressively with gentle IV fluids. His hyperkalemia is resolved. Acid-base status is acceptable. We will continue current IV fluids without intervention. 2. Acid-base: Respiratory acidosis with modest increased anion gap acidosis as well, clinically improved. cc: Mainor Escobedo MD
--- NOTE | 2016-11-30 14:32 | PROGRESS NOTE ---
DATE: 11/30/2016 SUBJECTIVE: Mr. Ponce is limited responsiveness presently to physical stimulation. He does some very slight moaning. He currently is in restraints. PHYSICAL EXAMINATION: Vital signs: He is presently afebrile. His heart rate is in the 70s to 90s, blood pressure 111 over 60s. He continues on a very light dose of Maurizio-Synephrine. His I's and O's are positive, he is around 958 mL positive over the last 24 hours. General: He is in no acute distress. Cardiovascular: He sounds to be in a irregularly irregular rhythm. His telemetry currently shows atrial fibrillation. He has 1+ bilateral lower extremity edema with warm well perfused lower extremities. Chest exam: Has very coarse breath sounds. He has a poor inspiratory effort. Currently has a face mask in place. Abdomen: Soft, nontender, nondistended. Skin Exam: Warm and dry throughout. PERTINENT DATA: White count 8.1, hematocrit 28, platelet count 109,000. His sodium is 143, potassium 4.7, his BUN is 93 with a creatinine of 5.4. That is down from 88 and 7.1. ASSESSMENT: 1. Volume depletion with acute renal insufficiency. 2. Atrial fibrillation. 3. Possible pneumonia. PLAN: Patient continues on antibiotics and a low dose of Maurizio-Synephrine. He is continuing to receive IV fluids and has had improvement in his renal function with this plan. He also has had at least stable if not slightly improved oxygenation as well and his Maurizio-Synephrine has had some reduction in the total dose administered. We will continue with current plan. Patient again does not seem to be volume overloaded. This seems to be more consistent with volume depletion. cc: Cristiano Ramirez MD
[2016-11-30] MEDS: PROTONIX IV SCH (16:11)
[2016-11-30] MEDS: SODIUM CHLORIDE 0.9% INJ SCH (16:11)
--- NOTE | 2016-11-30 17:57 | ECHO REPORT ---
ORDER DATE: 11/29/2016 MEASUREMENTS: Left ventricular end-diastolic diameter 5.4. Systolic diameter 3.8. Septal thickness 1.0. Posterior wall thickness 1.0. Left atrium 5.0. Aortic root 3.0. SUMMARY: 1. Technically difficult study due to limited acoustic window quality. 2. Aortic valve not well seen but fibrocalcific changes evident. Peak instantaneous gradient across aortic valve is 54 mmHg with a mean gradient of 30 mmHg. The calculated aortic valve area by Doppler is 1.2 cm2. There is mild aortic regurgitation. Mild mitral calcification is demonstrated. There is mild mitral regurgitation. Tricuspid valve is without gross structural abnormality with moderate tricuspid regurgitation. Pulmonic valve without structural abnormality with mild pulmonic insufficiency. Estimated systolic PA pressure by Doppler is 45-50 mmHg. Aortic root is normal in size. 3. Normal left ventricle dimensions suggested on 2-D images. Estimated left ejection fraction appears to be at least 55%. No obvious wall motion abnormality can be appreciated. Moderate biatrial enlargement suggested. Right ventricle is grossly normal in size. 4. No pericardial effusion. 5. Inferior vena cava not seen. 6. Rhythm during study appears to be probably atrial fibrillation with monophasic mitral inflow pattern. CONCLUSIONS: 1. Technically difficult study. 2. Moderate aortic stenosis with mild aortic regurgitation. 3. Mild mitral regurgitation. 4. Moderate tricuspid regurgitation with mild pulmonary hypertension by Doppler. 5. Estimated left ejection fraction at least 55%. 6. Moderate biatrial enlargement. cc: MD Cristiano Rosario MD
[2016-11-30] MEDS ORDERED: ATIVAN IV ONE (22:24)
[2016-12-01] MEDS: DUONEB (A & A) INH SCH ×6 (03:45→23:03)
[2016-12-01] MEDS: MERREM 500 MG in NS 50 ML IV SCH ×3 (05:15→20:04)
[2016-12-01 05:54] LABS: HEMATOCRIT 27.1 % (42.0-52.0); HEMOGLOBIN 8.5 g/dL (14.0-18.0); MCHC 31.4 g/dL (33-37); MCV 98.9 FL (81-99); MPV 11.6 FL (7.4-10.4); RBC 2.74 XMIL (4.7-6.1)
[2016-12-01 06:19] LABS: CALCIUM 8.4 mg/dL (8.8-10.2); POTASSIUM 4.6 mmol/L (3.5-5.1)
[2016-12-01] MEDS: HUMALOG SUBQ SCH ×4 (06:47→20:32)
[2016-12-01] MEDS: ASPIRIN PO SCH (08:18)
[2016-12-01] MEDS: D5 1/2 NS 1,000 ML IV SCH ×2 (09:04→22:57)
--- NOTE | 2016-12-01 11:57 | PROGRESS NOTE ---
DATE: 12/01/2016 SUBJECTIVE: This patient is alert. He is oriented x1. As per the nurse, this patient has been a little bit agitated. His kidney function is getting better with gentle hydration. We will continue with the same management for now. OBJECTIVE: Vital Signs: Temperature 98.3 degrees, pulse 101, respiratory rate 19, blood pressure 104/66, oxygen saturation 95% on a Venturi mask. HEENT: Head normocephalic. No trauma. PERRLA. Neck: Supple. No JVD. No masses. Central trachea. Skin: He has a chronic rash at the level of the face, chest, abdomen and the thigh that is chronic. Cardiovascular: Irregular rate and rhythm. Chest: Decreased breath sounds globally. Left side is greater than right side with crackles bilaterally. Abdomen: Soft, obese, protuberant positive bowel sounds. Extremities: 3+ lower extremity edema. Neurological: The patient is alert and oriented x1. He is following commands. LABORATORY: WBC 5.2, hemoglobin 8.5, hematocrit 27.1, platelets 98,000. Sodium 145, potassium 4.6, chloride 108, bicarbonate 25, BUN 83, creatinine 2.7, glucose 162, calcium 8.4, phosphorus 4.9. ASSESSMENT AND PLAN: 1. Acute respiratory failure. This is getting better. At this moment this patient is on a nasal cannula and the oxygen saturation is good. We will continue with the same management for now. 2. Acute on chronic kidney disease. Nephrology Department has been following this patient. His kidney function has been improving with the help of fluids and pressors. 3. Possible pneumonia. Continue with broad spectrum antibiotics. 4. Thrombocytopenia. We will monitor. 5. Hyperkalemia. Resolved. 6. Type 2 diabetes. Continue with the pattern of blood sugar and sliding scale insulin. 7. Hypertension. This patient is on pressors at this moment. Continue with the same management for now. 8. History of coronary artery disease. Cardiology on board. We will continue to monitor. 9. Deep vein thrombosis prophylaxis. Continue with aspirin and we will continue with the same management for now. 10. Left lower extremity lesion at the level of the left lower leg. Wound Care is on board. 11. Agitation. I will use a low dose of Ativan p.r.n. for agitation. CRITICAL CARE TIME: 40 minutes. cc: Joselito Beal MD
--- NOTE | 2016-12-01 11:59 | PROGRESS NOTE ---
DATE: 12/01/2016 SUBJECTIVE: Mr. Ponce continues to improve. His renal function has improved over the last 24 hours. He continues on IV fluids with a positive fluid balance over the course of the hospitalization of a little over 2 liters. OBJECTIVE: Vital Signs: He is afebrile. Heart rates are in the 90s to low 100s. Blood pressure 144/74. General: He is in no acute distress. Again, he is very difficult to understand, but seems to be mentating well. Cardiovascular: He sounds to be in a regular rate and rhythm, with no obvious murmurs. He has no S3. He has 1+ bilateral lower extremity edema. Chest: Sounds relatively coarse, but he does not have any increased work of breathing. Abdomen: Soft, nontender. Skin: Warm and dry throughout. PERTINENT DATA: Sodium is 145, potassium 4.6. His BUN is 83 with creatinine 2.7. Yesterday, they were 93 and 5.4, respectively. ASSESSMENT: 1. Acute kidney injury secondary to volume depletion. 2. Pneumonia. PLAN: Patient seems to be doing well from a cardiovascular standpoint. He is rate controlled. He continues on fluids and his renal function is steadily improving. cc: Cristiano Ramirez MD
[2016-12-01] MEDS: NEO-SYNEPHRINE 50 MG in NS 250 ML IV SCH (13:16)
[2016-12-01] MEDS: ATIVAN IV PRN ×3 (13:26→21:37)
[2016-12-01] MEDS ORDERED: VANCOMYCIN 1,500 MG in NS 250 ML IV SCH (14:00)
[2016-12-01] MEDS: PROTONIX IV SCH (15:17)
--- NOTE | 2016-12-01 17:26 | PROGRESS NOTE ---
DATE: 12/01/2016 He is arousable and answers me but it is not clear that he understands. He does follow simple commands such is request to protrude the tongue. OBJECTIVE: Vital Signs: Blood pressure 106/69, heart rate 93, respirations 22, afebrile. Generally: He is an obese man, no acute distress on closed face mask. Skin: Warm and dry with multiple ecchymoses. HEENT: Conjunctivae are pink. Oropharynx is clear. Tongue has varicosities. Neck: Neck veins are not visible. Heart: Regular. Lungs: Have equal breath sounds with rhonchi. Abdomen: Obese and soft. Bowel sounds are present. Extremities: 1+ edema. No clubbing or cyanosis. LABORATORY DATA: Sodium 145, potassium 4.6, chloride 108, bicarbonate 25, BUN 83, creatinine 2.7. Hemoglobin 8.5. IMPRESSION: 1. Acute kidney injury. Prerenal. Improving with gentle IV fluids. Continue same. 2. Hyperkalemia. Poor distal tubular sodium delivery. Resolved. cc: Mainor Escobedo MD
[2016-12-02] MEDS: ATIVAN IV PRN ×2 (01:43→05:50)
[2016-12-02] MEDS: DUONEB (A & A) INH SCH ×6 (03:50→22:58)
[2016-12-02] MEDS: MERREM 500 MG in NS 50 ML IV SCH ×3 (05:02→20:18)
[2016-12-02 05:35] LABS: MANUAL DIFF NEEDED? NO
[2016-12-02 05:41] LABS: BASO% 0.3 % (0.0-0.8); EOS# 0.08 X1000 (0.0-0.7); EOS% 2.2 % (0.0-10.0); HEMOGLOBIN 8.1 g/dL (14.0-18.0); LYMPH# 0.37 X1000 (1.2-3.4); LYMPH% 10.4 % (20.5-51.1); MCH 30.2 PG (27-31); MCV 100.7 FL (81-99); MONO# 0.49 X1000 (0.11-0.59); MONO% 13.8 % (1.7-9.3); MPV 11.6 FL (7.4-10.4); NEUT% 73.3 % (42.2-75.2); PLT 87 X1000 (130-400); RBC 2.68 XMIL (4.7-6.1)
[2016-12-02] MEDS: HUMALOG SUBQ SCH ×4 (06:40→20:24)
[2016-12-02] MEDS ORDERED: APRESOLINE IV PRN (08:16)
[2016-12-02] MEDS: ASPIRIN PO SCH (08:37)
--- NOTE | 2016-12-02 08:55 | Diag Imaging Result Doc PS360 ---
EXAM: CHEST-PORTABLE HISTORY: SOB TECHNIQUE: AP upright portable at 0815 COMMENT: There are sternotomy wires. There is cardiomegaly. There is slightly improved pulmonary edema compared to the previous study of 11/30/2016. This is particularly true in the lingula. There is some apparent atelectasis in the more superior portion of the left upper lobe. Possibility of a right pleural effusion cannot be excluded. IMPRESSION: Cardiomegaly and pulmonary edema slightly improved since previous study. Atelectasis in the left upper lobe. Right pleural effusion. Electronically signed by Jules De León 12/02/2016 8:52 AM
[2016-12-02] MEDS ORDERED: VANCOMYCIN IV PER PHARMACY MISC SCH (09:00)
--- NOTE | 2016-12-02 09:04 | PROGRESS NOTE ---
DATE: 12/02/2016 SUBJECTIVE: This patient is not alert. He is withdrawing with pain stimulation. He is having respiratory distress and tachycardia. He started having some hematuria a couple days ago but I think it is traumatic. In any case, I will consult Dr. Cabrera to evaluate this patient. Because of his respiratory distress and decreased level of consciousness, I will consult pulmonary department to evaluate this patient. OBJECTIVE: Vital Signs: Temperature 98.3 degrees, pulse 123, respiratory rate 25, blood pressure on the monitor is 181/103, oxygen saturation 96 on BiPAP. HEENT: Head normocephalic. No trauma. PERRLA. Neck: Supple. No JVD. No masses. Central trachea. Skin: He has a chronic rash at the level of the face, chest, abdomen, and thigh. Cardiovascular: RRR, tachycardic. Chest: Decreased breath sounds globally, left side greater than right side, with crackles bilaterally. Abdomen: Soft, obese, protuberant,. Positive bowel sounds. Extremities: There is 3+ lower extremity edema. Neurological Examination: The patient is lethargic and he is withdrawing with pain stimulation. He is not answering any of my questions. Laboratory Data: WBC 3.5, hemoglobin 8.1, hematocrit 27, platelets 87,000. Pending BMP and ABGs. ASSESSMENT AND PLAN: 1. Acute respiratory failure. This patient was getting better but over the night, he declined. I will put this patient back on the BiPAP machine. I will ask for x-ray and ABGs. I will consult the pulmonary department to evaluate this patient. 2. Acute on chronic kidney disease. Nephrology department has been following with this patient. His kidney function has been improving with the help of fluids and pressors. BMP today is pending. We will continue to monitor. Nephrology department is following this patient. 3. Possible pneumonia. I will continue with broad spectrum antibiotics. I will get an x-ray today. 4. Thrombocytopenia. We will monitor. 5. Hyperkalemia, resolved but pending today's BMP. 6. Type 2 diabetes. Continue with the pattern of blood sugar and sliding scale insulin. 7. Hypertension. I have placed this patient on hydralazine as needed if systolic blood pressure is more than 180. 8. Gross hematuria. Urology department has been consulted. 9. History of coronary artery disease. Cardiology is on board. We will continue to monitor. 10. Deep vein thrombosis prophylaxis. Continue with aspirin. We will continue with the same management for now. He has thrombocytopenia. I will not place this patient on heparin. 11. Left lower extremity lesion at the level of the left lower leg. Wound care is on board. CRITICAL CARE TIME: 40 minutes. cc: Joselito Beal MD
[2016-12-02 09:21] LABS: CALCIUM 9.1 mg/dL (8.8-10.2); POTASSIUM 4.9 mmol/L (3.5-5.1)
[2016-12-02 09:55] LABS: ALLEN TEST YES; BE 5.2 mmoll (-3.0-3.0); BLOOD TYPE ARTERIAL; DRAW SITE R RADIAL; METHB 1.6 % (0.0-1.5); O2(CT) 12.7 mL/dL (15.0-23.0); PO2(98.6) 84 mmHg (60-100); SAMPLE BLOOD; SAO2 98.4 % (95.0-100.0); THB 9.4 g/dL (11.5-17.4); pH(98.6) 7.36 (7.35-7.45)
[2016-12-02 09:56] LABS: MODALITY BI PAP
[2016-12-02 09:57] LABS: PCO2(98.6) 56 mmHg (35-45)
[2016-12-02] MEDS: VANCOMYCIN 2,000 MG in NS 500 ML IV SCH (11:28)
--- NOTE | 2016-12-02 12:46 | PROGRESS NOTE ---
DATE: 12/02/2016 SUBJECTIVE: Mr. Ponce continues to have some mild confusion/ he continues to be in soft restraints. PHYSICAL EXAMINATION: Vital signs: He is afebrile. His heart rates seem somewhat variable. Anywhere from the 90s to 120s. He is off the Maurizio-Synephrine. His blood pressure is 137/60. General: He is in no acute distress. Cardiovascular: He is in an irregularly irregular rhythm. Currently rate controlled. Chest: Exam has coarse bilateral breath sounds. He currently has a BiPAP in place. Abdomen: Soft, nontender, nondistended. He has no obvious organomegaly. Skin Exam: Warm and dry throughout, without any rashes PERTINENT DATA: His white count is 3.5. His hematocrit is 27. His platelet count is 87,000. His ABG shows a pH of 7.36, pCO2 of 56, PO2 of 84. He is in an AA gradient of 96 which is better than it was on the . His sodium is 154. His potassium is 4.9. His BUN is 62, creatinine 1.3. His sodium was 145 yesterday. His BUN and creatinine were 83 and 2.7 respectively. His proBNP was 1,488 on the and it is 1,280 today. ASSESSMENT: 1. Atrial fibrillation. 2. Volume depletion. PLAN: Patient's sodium is significantly higher today than it was yesterday. I am unsure exactly why that is the case considering he has been getting D5 half-normal saline that entire time period. I will defer treatment of that to the primary team. We will add in some oral rate controlling medications. The patient is currently on a clear liquid diet. At home he was on atenolol 50 mg b.i.d. Will start him on diltiazem at 30 mg q.6 to start with. cc: Cristiano Ramirez MD
[2016-12-02] MEDS: D5W 1,000 ML IV SCH (13:25)
[2016-12-02] MEDS ORDERED: CARDIZEM PO SCH (14:00)
[2016-12-02] MEDS: PROTONIX IV SCH (15:46)
[2016-12-02] MEDS: SODIUM CHLORIDE 0.9% INJ SCH (15:46)
[2016-12-02] MEDS: HALDOL IM PRN ×2 (15:55→21:57)
[2016-12-02 17:35] LABS: MANUAL DIFF NEEDED? NO
[2016-12-02 17:46] LABS: BASO% 0.3 % (0.0-0.8); EOS# 0.08 X1000 (0.0-0.7); EOS% 2.2 % (0.0-10.0); HEMOGLOBIN 9.1 g/dL (14.0-18.0); LYMPH# 0.48 X1000 (1.2-3.4); LYMPH% 13.4 % (20.5-51.1); MCH 31.3 PG (27-31); MCHC 31.4 g/dL (33-37); MCV 99.7 FL (81-99); MONO# 0.59 X1000 (0.11-0.59); MONO% 16.5 % (1.7-9.3); MPV 10.4 FL (7.4-10.4); NEUT% 67.6 % (42.2-75.2); PLT 106 X1000 (130-400); RBC 2.91 XMIL (4.7-6.1)
[2016-12-02 17:54] LABS: AGAP 12; BUN 49 mg/dL (8-22); CALCIUM 8.8 mg/dL (8.8-10.2); CHLORIDE 108 mmol/L (98-107); COSMO 312; POTASSIUM 4.3 mmol/L (3.5-5.1); SODIUM 149 mmol/L (136-145); TCO2 29 mmol/L (25-35)
--- NOTE | 2016-12-02 18:46 | CONSULTATION ---
DATE OF CONSULTATION: 12/02/2016 CHIEF COMPLAINT: Respiratory failure, altered mental status. HISTORY OF PRESENT ILLNESS: This 76-year-old male with a history of COPD, type 2 diabetes, and obesity was recently treated for community-acquired pneumonia at [facility] earlier this month. Since his discharge from [facility] he has had worsening shortness of breath and weakness. PAST MEDICAL HISTORY: COPD, obesity, coronary artery disease, A-fib, type 2 diabetes, B12 deficiency, non-small cell lung cancer. PAST SURGICAL HISTORY: Coronary bypass graft, cholecystectomy, pulmonary nodule , radio surgery. SOCIAL HISTORY: Lives with his . REVIEW OF SYSTEMS: A 10-point review of systems was obtained and the pertinent is located in the HPI, otherwise noncontributory. ALLERGIES: Penicillin. HOME MEDICATIONS: Allopurinol 100 mg daily, Eliquis 2.5 mg p.o. b.i.d., aspirin 81 mg daily, Tenormin 50 mg b.i.d., glipizide 10 mg b.i.d., codeine cough syrup as directed, [place] 7.5 every 8 hours as needed, lisinopril hydrochlorothiazide. 20/25 mg daily. PHYSICAL EXAMINATION: Vital Signs: Temperature 98.3, pulse rate 123, respiratory rate 20, blood pressure 163/84, O2 saturation 95 at 4 L per nasal cannula. General: Lethargic , in respiratory distress, morbid obesity. Neurologic: No deficits noted. HEENT: Atraumatic, normocephalic. PERRLA noted. Trachea midline. Neck: Supple. Chest: Decreased breath sounds bilaterally. Rhonchi noted bilaterally in all lung aguero. Cardiovascular: Irregular. A- fib. Abdomen: Distended. Bowel sounds present. Nontender. Extremities: There is +2 edema bilaterally. Palpable pulses bilateral. DIAGNOSTIC DATA: Chest x-ray, impression: Cardiomegaly and pulmonary edema, slightly improved since previous study. Atelectasis in the left upper lobe, right pleural effusion. LABORATORY DATA: White blood cells 3.56, red blood cells 2.68, hemoglobin 8.1, hematocrit 27, MCV 100.7, MCH 30.2, platelets 87,000. PH 7.36, pCO2 56, PO2 84, HCO3 29.0, oxyhemoglobin 94.8. Sodium 154, potassium 4.9, chloride 114, carbon dioxide 24, BUN 62, creatinine 1.3, glucose 194, calcium 9.1. ProBNP 1,280. ASSESSMENT AND PLAN: 1. Acute respiratory failure. STEFAN. Obesity Hypoventillation syndrome. Continue breathing current treatment, BiPAP, and antibiotics. Continue deep vein thrombosis prophylaxis. 2. Pneumonia. Continue antibiotics as prescribed and bronchodilators. 3. Type 2 diabetes. Continue fingerstick blood sugars and insulin as needed. Thank you for the courtesy of this consult. Dictated by ENDY Jackman for Josephine Cardoso MD cc: ENDY Jackman MD [facility]
--- NOTE | 2016-12-02 21:58 | CONSULTATION ---
DATE OF CONSULTATION: 12/02/2016 ATTENDING AND REFERRING PHYSICIAN: Hospitalist. HISTORY OF PRESENT ILLNESS: This 76-year-old male was admitted on 11/28 with mental status changes and increased respiratory problems. The patient is on Eliquis for atrial fibrillation. He developed hematuria in his Curran catheter several days ago. It has been intermittent, but over the last 2 days, it seems to have gotten worse. The patient is somewhat confused, and this has increased over the last 36 hours. He will not answer questions. He seems to be very restless. The patient is in soft restraints, but is able to move his legs. He has an indwelling Curran catheter. The urine output in the drainage tubing is light jose de jesus in color. PAST MEDICAL HISTORY: History of lung cancer, exact treatment and time of treatment is not known. He has hypertension, obesity, type 2 diabetes, COPD, coronary artery disease, history of atrial fibrillation. CURRENT MEDICATIONS: Documented on the chart, and include Eliquis. PAST SURGICAL HISTORY: Cholecystectomy, coronary artery bypass grafting, and it is thought he has had radiation therapy for his lung cancer. SOCIAL HISTORY: Not known. REVIEW OF SYSTEMS: Again, he is unable to give a review of systems. However, it is obvious he has significant psoriasis. PHYSICAL EXAMINATION: General: An obese, age-apparent white male, who is in soft restraints, with a CPAP mask on, and appears restless. He will not acknowledge his name. HEENT: Normal for age. Lungs: Clear anteriorly. Cardiovascular: Irregularly irregular rate and rhythm. Abdomen: Obese, with changes of psoriasis. No apparent tenderness with palpation. Genitourinary: Curran catheter in place. Foreskin retracts. Both testes are down and palpably normal. Small bilateral hydroceles. Rectal: Normal sphincter tone. Prostate about 50-60 g, smooth, and symmetric. Extremities: +1 to 2 pitting edema. Neurologic: He is moving all extremities. LABORATORY EVALUATION: He has a hemoglobin of 8.1, hematocrit 27, with 87,000 platelets. Serum electrolytes has a sodium of 154, potassium 4.9, chloride 114, bicarb 24, BUN 62, creatinine 1.3, and glucose is 194. Urine output at 8:00 this morning, his total output was 1145 mL. IMPRESSION: 1. Patient with multiple medical problems, including atrial fibrillation. The information was obtained from the nurse and his chart. 2. He is anticoagulated with Eliquis. 3. He has a low platelet count of 87,000. 4. The blood in the urine is probably coming from his anticoagulation, low platelet count, and indwelling Curran catheter that is probably rubbing on the bladder trigone, with his continual lower extremity movement. RECOMMENDATION: Continue Curran catheter drainage. Will follow. Thank you for this consultation. cc: Mookie Cabrera MD
[2016-12-03] MEDS: LOPRESSOR IV PRN ×4 (01:31→16:45)
[2016-12-03] MEDS: DUONEB (A & A) INH SCH ×6 (03:27→23:05)
[2016-12-03] MEDS: D5W 1,000 ML IV SCH (04:31)
[2016-12-03 04:32] LABS: ALLEN TEST YES; BE 6.8 mmoll (-3.0-3.0); BLOOD TYPE ARTERIAL; DRAW SITE R RADIAL; O2(CT) 12.8 mL/dL (15.0-23.0); PCO2(98.6) 38 mmHg (35-45); PO2(98.6) 178 mmHg (60-100); SAMPLE BLOOD; SAO2 99.4 % (95.0-100.0); THB 9.1 g/dL (11.5-17.4); pH(98.6) 7.51 (7.35-7.45)
[2016-12-03 04:33] LABS: MODALITY BI PAP
[2016-12-03 04:58] LABS: MANUAL DIFF NEEDED? NO
[2016-12-03] MEDS: MERREM 500 MG in NS 50 ML IV SCH ×3 (05:21→20:20)
[2016-12-03 05:27] LABS: BASO% 0.5 % (0.0-0.8); EOS# 0.09 X1000 (0.0-0.7); EOS% 2.3 % (0.0-10.0); HEMATOCRIT 27.8 % (42.0-52.0); HEMOGLOBIN 8.6 g/dL (14.0-18.0); LYMPH# 0.54 X1000 (1.2-3.4); LYMPH% 13.7 % (20.5-51.1); MCH 30.8 PG (27-31); MCHC 30.9 g/dL (33-37); MCV 99.6 FL (81-99); MONO# 0.61 X1000 (0.11-0.59); MONO% 15.5 % (1.7-9.3); MPV 11.3 FL (7.4-10.4); PLT 104 X1000 (130-400); RBC 2.79 XMIL (4.7-6.1)
[2016-12-03 05:38] LABS: AGAP 10; BUN 44 mg/dL (8-22); CALCIUM 8.8 mg/dL (8.8-10.2); CHLORIDE 111 mmol/L (98-107); COSMO 312; POTASSIUM 4.8 mmol/L (3.5-5.1); SODIUM 149 mmol/L (136-145); TCO2 28 mmol/L (25-35)
[2016-12-03] MEDS: HUMALOG SUBQ SCH ×4 (06:00→20:20)
--- NOTE | 2016-12-03 07:18 | Diag Imaging Result Doc PS360 ---
EXAM: CHEST-1 VIEW INDICATION: SOB COMPARISON: 12/02/2016 FINDINGS: Right PICC line is in stable position. Bilateral consolidations most compatible pulmonary edema are essentially unchanged. No new consolidation is identified. Cardiac silhouette is stable. IMPRESSION: Stable chest. Electronically signed by Chris Soto 12/03/2016 7:15 AM
[2016-12-03] MEDS: HALDOL IM PRN ×3 (08:03→23:16)
[2016-12-03] MEDS: ASPIRIN PO SCH (08:36)
[2016-12-03] MEDS ORDERED: LASIX IV ONE (10:04)
--- NOTE | 2016-12-03 10:05 | PROGRESS NOTE ---
DATE: 12/03/2016 SUBJECTIVE: Patient thrashing around in bed. Does not follow commands. He has a BiPAP in place. OBJECTIVE: Vital Signs: Temperature 98.1 degrees, pulse 109, respiratory rate 29, blood pressure 137/74, intake 2.4 L, output 2.4 L. General: This is an elderly gentleman thrashing about in bed. He does not follow commands. HEENT: Normocephalic and atraumatic. BiPAP is in place. Neck: Supple, thick. Cardiovascular: Tachycardic, regular rate. Pulmonary: He has rhonchi bilaterally again and he has a BiPAP, difficult to discern respiratory depth secondary to movement. Abdomen: Obese, soft, positive bowel sounds. : He has a Curran catheter with dark yellow urine. Extremities: Trace to 1+ pretibial edema. Integumentary: He has rashes, erythema, ecchymoses noted to upper and lower extremities. Lab Data: WBC of 3.9, hemoglobin 8.6. Sodium 149, potassium 4.8, CO2 28, BUN 44, creatinine 1. ASSESSMENT AND PLAN: 1. Acute kidney injury. His creatinine has normalized. 2. Electrolytes. His hyperkalemia has resolved. He has mild hypernatremia. He had D5 added yesterday with improvement. 3. Nutrition. Spoke with primary. Their plan is initiate Clinimix or total parenteral nutrition on the patient. Stop the D5. 4. Fluid volume. He has balanced over the last 24 hours but still has fluid on. I understand that primary is planning to give him some Lasix. OK from my perspective. Continue to monitor. Dictated by ENDY Stoner for Mainor Escobedo MD Seen, data reviewed, discussed with Nikki Choe on 12/03/16. I agree with the above assessment and plan of care. cc: Mainor Escobedo MD [facility]
[2016-12-03] MEDS: CLINIMIX E 4.25%-5% SOLUTION 1,000 ML IV SCH (10:48)
--- NOTE | 2016-12-03 11:00 | PROGRESS NOTE ---
DATE: 12/03/2016 SUBJECTIVE: This patient is still lethargic. He is withdrawing with pain stimulation. He is having mild respiratory distress and tachycardia. He started having hematuria a few days ago but now it looks like it is getting better. Urology Department is on board. This patient is still on BiPAP machine and Pulmonary Department is following this patient. Since his kidney function is getting better and he had fluids in his lungs, I will stop the IV fluids, and I will use a one time dose of Lasix to see how he does. Tomorrow, probably we can try a little bit more of Lasix. The case was discussed with Dr. Escobedo from Nephrology. Also, I will start this patient on Clinimix since he is not eating anything. His sodium yesterday was 154 and, today 149. We will keep an eye on that. Probably with the use of Lasix and stopping the D5W, it will increase a little bit. OBJECTIVE: Vital Signs: Temperature 98.9 degrees, pulse 130, respiratory rate 24, blood pressure 134/92, oxygen saturation 95% on BiPAP. HEENT: Head normocephalic. No trauma. PERRLA. Neck supple. No JVD. No masses. Central trachea. Skin: Generalized rash that is chronic. Cardiovascular: RRR. Tachycardic. Chest: Decreased breath sounds globally. Left side greater than right side with crackles bilaterally and rhonchi. Abdomen is soft, obese, protuberant. Positive bowel sounds. Extremities: 3+ lower extremity edema. Neurologic: The patient is lethargic. He is withdrawing with pain and stimulation. He is not answering any of my questions. LABORATORY: WBC 3.9, hemoglobin 8.6, hematocrit 27.8, platelets 104,000. Sodium 149, potassium 4.8, chloride 111, bicarbonate 28. BUN 44, creatinine 1, glucose 183. Calcium 8.8. ASSESSMENT AND PLAN: 1. Acute respiratory failure. Continue with the same treatment. This patient is using a BiPAP machine. X-ray looks stable. Pulmonary Department is following this patient. 2. [id number] kidney disease, improved with the use of IV fluids. I discussed the case with Nephrology Department, and I will stop the IV fluids for now, and I will use a one time dose of Lasix to see how this patient does. Probably tomorrow we can put this patient on Lasix schedule since he has fluid at the level of the lungs. 3. Possible pneumonia. Continue with broad spectrum antibiotics. 4. Thrombocytopenia. We will monitor. 5. Hyperkalemia, resolved. 6. Type 2 diabetes. Continue with pattern of blood sugar and sliding scale insulin. 7. Hypertension. Continue with the same management. 8. Gross hematuria. Urology Department is on board. This patient's hearing looks better today. 9. History of coronary artery disease. Cardiology is on board. Continue to monitor. 10. Deep vein thrombosis prophylaxis. Continue with the same management. He is just with aspirin but he has been on Eliquis before. 11. Left lower extremity lesion at the level of the left lower leg. Wound Care is on board. CRITICAL CARE TIME: 40 minutes. Before this admission, this patient was admitted to [facility]. He was treated with diuretics, and he was admitted here with kidney injury that improved with fluids. Also, this patient has pulmonary edema and respiratory failure and 3+ lower extremity edema. We will continue with he BiPAP machine and this patient is confused. Since this patient is not tolerating p.o. I will start with Clinimix, but we need to consider the local [place] truck driver in the future. As I mentioned before, I will give him a one time dose of Lasix and, if this is tolerated and the kidney function is okay, probably we can continue with this. For now, it is just a one time dose. cc: Joselito Beal MD
[2016-12-03] MEDS: VANCOMYCIN 2,000 MG in NS 500 ML IV SCH (11:26)
--- NOTE | 2016-12-03 13:37 | PROGRESS NOTE ---
DATE: 12/03/2016 SUBJECTIVE: Mr. Ponce is not able to answer any questions. He responds with unintelligible sounds and on physical movement with verbal and physical stimulation. OBJECTIVE: Vital Signs: He is afebrile. His heart rates were somewhat erratic, anywhere from the 80s to 130s. Blood pressure is 133/77. He is currently on BiPAP at 35% FiO2. General: He is in no acute distress. He is not responding to commands. Cardiovascular: He is in an irregularly irregular rhythm. No murmurs. No S3. No lower extremity edema. Chest: Exam is coarse. He has no increased work of breathing. Abdomen: Soft, nontender, nondistended. He has no obvious organomegaly. Skin: Warm and dry throughout. PERTINENT DATA: His white count is 3.9, his hematocrit is 27.8, platelet count is 104,000. His on his ABG his AA gradient is 24 which is down from yesterday's of 96. His sodium is 149, potassium is 4.8, BUN is 44, creatinine is 1 which again is slightly better than yesterday. His proBNP is 1537. ASSESSMENT: 1. Atrial fibrillation. 2. Respiratory failure. PLAN: His acute kidney insufficiency seems resolved at this point. His BUN and creatinine are still at an elevated ratio of 44 and 1.0. Would continue with Clinimix as already ordered. I would not treat him with diuretics. His sodium is elevated suggesting that he has dehydration. I will started diltiazem infusion to try to control his heart rate which is likely being exacerbated by his respiratory issues as well as his likely delirium. cc: Cristiano Ramirez MD
[2016-12-03] MEDS: CARDIZEM 100 MG/NS 100 MG/100 ML IVPB IV SCH ×2 (13:40→20:09)
[2016-12-03] MEDS: PROTONIX IV SCH (16:23)
[2016-12-04] MEDS: DUONEB (A & A) INH SCH ×6 (03:45→22:58)
[2016-12-04] MEDS: MERREM 500 MG in NS 50 ML IV SCH ×3 (03:55→20:20)
[2016-12-04 05:10] LABS: ALLEN TEST YES; BLOOD TYPE ARTERIAL; DRAW SITE R RADIAL; METHB 0.6 % (0.0-1.5); O2(CT) 12.1 mL/dL (15.0-23.0); PO2(98.6) 92 mmHg (60-100); SAMPLE BLOOD; SAO2 98.8 % (95.0-100.0); THB 8.8 g/dL (11.5-17.4)
[2016-12-04 05:11] LABS: MODALITY BI PAP; PCO2(98.6) 53 mmHg (35-45)
[2016-12-04 05:41] LABS: MANUAL DIFF NEEDED? NO
[2016-12-04 05:58] LABS: AGAP 12; BUN 43 mg/dL (8-22); CALCIUM 8.8 mg/dL (8.8-10.2); CHLORIDE 110 mmol/L (98-107); COSMO 313; POTASSIUM 4.6 mmol/L (3.5-5.1); SODIUM 150 mmol/L (136-145); TCO2 28 mmol/L (25-35)
[2016-12-04 06:05] LABS: BASO% 0.3 % (0.0-0.8); EOS# 0.06 X1000 (0.0-0.7); EOS% 1.5 % (0.0-10.0); HEMATOCRIT 27.6 % (42.0-52.0); HEMOGLOBIN 8.4 g/dL (14.0-18.0); LYMPH# 0.51 X1000 (1.2-3.4); LYMPH% 13.1 % (20.5-51.1); MCH 30.4 PG (27-31); MCHC 30.4 g/dL (33-37); MONO# 0.66 X1000 (0.11-0.59); MPV 11.4 FL (7.4-10.4); NEUT% 68.1 % (42.2-75.2); PLT 113 X1000 (130-400); RBC 2.76 XMIL (4.7-6.1)
--- NOTE | 2016-12-04 06:11 | Diag Imaging Result Doc PS360 ---
EXAM: CHEST-1 VIEW HISTORY: SOB TECHNIQUE: Portable COMPARISON: 12/03/2016. FINDINGS: Sternal wires are present. The heart is enlarged. There is vascular distention. There may be underlying pneumonia in the mid left lung. Left costophrenic angle and lateral left lung are not included. IMPRESSION: No interval improvement. Electronically signed by Melvin Dahl 12/04/2016 6:09 AM
[2016-12-04] MEDS: CARDIZEM 100 MG/NS 100 MG/100 ML IVPB IV SCH ×3 (06:16→21:38)
[2016-12-04] MEDS: HUMALOG SUBQ SCH ×4 (06:17→20:20)
[2016-12-04] MEDS: CLINIMIX E 4.25%-5% SOLUTION 1,000 ML IV SCH (06:18)
--- NOTE | 2016-12-04 07:15 | PROGRESS NOTE ---
DATE: 12/04/2016 SUBJECTIVE: Patient is restless according to the nursing staff, even since admission. Now, he is in restraints and using a BiPAP machine. Does follow simple commands. OBJECTIVE: Vital Signs: Temperature 98 degrees, heart rate 98, respiratory rate 22, blood pressure 140/64, O2 saturation 93% on BiPAP machine. General: This is a 76- year-old chronically ill-looking and frail, male, lying in bed, in no acute distress. HEENT: Head is normocephalic, atraumatic. Anicteric sclerae and pale conjunctivae. Mucous membranes are moist. Neck: Supple. No JVD noted. No carotid bruits. No lymphadenopathy. No thyromegaly. Skin: Chronic rash in the lower face, chest, abdomen and thigh. Cardiovascular: S1 , S2 heard. No murmurs, gallops, or rubs. Regular rate and rhythm. Respiratory: Decreased breath sounds globally with left side greater than the right rate. There are still crackles present in both bases. Patient is not using any accessory muscles or having work of breathing. Abdomen: Soft, nontender to palpation. Bowel sounds present. No organomegaly. Extremities: Three plus bilateral edema. Peripheral pulses present in both legs. Neurological: Patient is restless and sometimes he follows basic commands. LABORATORY DATA: White cell count 3.89, hemoglobin 8.4, hematocrit 27.6, platelets 113,000. ABG shows pH 7.40, pCO2 of 53, PO2 92, BMP remarkable. Sodium 150. ASSESSMENT AND PLAN: 1. Acute respiratory failure. Patient is still requiring BiPAP. Yesterday, apparently he was given oxygen by nasal canula 6 L. He was saturating 92-93%. We will try at this time, a Ventimask and also Pulmonary has been consulted. We will follow recommendations. 2. Acute kidney injury. That condition is resolved. 3. Left lower lobe pneumonia. We will continue with broad-spectrum antibiotics. X-ray from this morning actually showed no interval improvement with underlying pneumonia in the left mid left lung. At this point, we will continue with the same management. 4. Thrombocytopenia. The platelet count is getting better. We will continue with the same management. 5. Hyperkalemia, resolved. 6. Diabetes mellitus type 2. We will continue with the sliding scale insulin on basal insulin as well. 7. Hypertension. Blood pressure is definitely well controlled. We will continue with the same management. In this case, patient has been started on hydralazine as needed. 8. Gross hematuria. The patient has been evaluated by Urology and they do not have any urgent recommendations at this time. 9. History of coronary artery disease. Patient is not complaining of any chest pain. We will continue with the same management. 10. Deep vein thrombosis prophylaxis. We will continue with that. 11. Left lower extremity lesion on the level of the leg. Wound Care is following this patient. cc: Khadar Persaud MD MTDD
[2016-12-04] MEDS: ASPIRIN PO SCH (08:04)
--- NOTE | 2016-12-04 08:37 | PROGRESS NOTE ---
DATE: 12/04/2016 SUBJECTIVE: He remains on BiPAP today. He does follow simple commands. He did not answer questions. OBJECTIVE: Vital Signs: Blood pressure 162/68, heart rate 100, respirations 24, afebrile. Intake 1.6 L. Output 1.9 L. General: No acute distress. Skin: Warm and dry. HEENT: Conjunctivae are pink. Neck: Neck veins are not appreciated. The left ear is edematous. Heart: Irregular. No audible gallops or murmurs. Lungs: Have equal breath sounds with a few scattered rhonchi and crackles. Abdomen: Obese and soft. Bowel sounds are present. Extremities: Have 1 to 2+ edema, primarily in the flanks. LABORATORY DATA: Sodium 150, potassium 4.6, chloride 110, bicarbonate 28, BUN 43, creatinine 1.0. IMPRESSION: 1. Acute kidney injury. Resolved with IV fluids. Still has high BUN to creatinine ratio. 2. Volume status. Unclear. Respiratory status has declined and chest x-ray is virtually on readable to me. I discussed the case with Dr. Ramirez this morning. He does still have atrial fibrillation with rapid response and so he might have some improvement in his status with tighter control there. Otherwise we may need a right heart catheterization in order to understand his volume status. 3. Hypernatremia. He is receiving Clinimix which is very low in sodium (30 mmol/L). This is infusing at 50 mL/minute. I hate to give him a larger amount of IV fluid because of his tenuous pulmonary status. Continue same. cc: Mainor Escobedo MD
[2016-12-04 09:28] LABS: URINE MICRO REVIEW NEEDED? NO; URINE SOURCE CATH
[2016-12-04 09:31] LABS: BILIRUBIN URINE NEGATIVE (NEGATIVE); BLOOD URINE MODERATE (NEGATIVE); COLOR YELLOW; GLUCOSE URINE NEGATIVE (NEGATIVE); LEUKOCYTES URINE NEGATIVE (NEGATIVE); NITRITE URINE NEGATIVE (NEGATIVE); PH URINE 5.5; PROTEIN URINE TRACE mg/dL (NEGATIVE); SP GRAVITY URINE 1.018; TURBIDITY URINE CLEAR (CLEAR); UR EPITHELIAL CELLS <10 /HPF (<10); URINE BACTERIA NEGATIVE /HPF; URINE RBC 20-40 /HPF (<10); URINE WBC <10 /HPF (<10); UROBILINOGEN URINE 2 mg/dL (NORMAL)
[2016-12-04 10:02] LABS: UR CREAT RANDOM 157.4 mg/dL (14-26); UR PROT RANDOM 31.8 mg/dL
[2016-12-04 10:25] LABS: UR SODIUM < 10 mmoll
[2016-12-04] MEDS: HALDOL IM PRN (11:21)
[2016-12-04] MEDS: VANCOMYCIN 2,000 MG in NS 500 ML IV SCH (11:23)
[2016-12-04] MEDS: GEODON IM PRN ×2 (14:12→21:37)
[2016-12-04] MEDS: PROTONIX IV SCH (15:06)
[2016-12-04] MEDS: SODIUM CHLORIDE 0.9% INJ SCH (15:06)
[2016-12-04] MEDS ORDERED: LOVENOX SUBQ ONE (16:44)
--- NOTE | 2016-12-04 17:15 | PROGRESS NOTE ---
DATE: 12/04/2016 SUBJECTIVE: Mr. Ponce continues to be difficult to communicate with. He mutters unintelligible noises with any sort of physical or verbal stimuli. I cannot get him to follow commands. PHYSICAL EXAMINATION: Vital signs: He has been afebrile. His heart rates seem to be in the 90s to 110s or so. He continues to be on a diltiazem infusion at a 15 mg/hour rate. His blood pressure is 150/76. General: He is somewhat in some mild distress secondary to just agitation. Again, he is not focusing on anyone. He does not follow commands. Cardiovascular: He is in an irregularly irregular rate controlled rhythm at the time of my examination. He has 1+ lower extremity edema. Chest: Coarse. He has poor inspiratory effort. He is currently on BiPAP. Abdomen: Soft, nontender, nondistended. No obvious organomegaly. PERTINENT DATA: White count 3.8, hematocrit 27.6, platelet count is 113,000. His ABG shows pH 7.4, pCO2 53, PO2 of 92. His FiO2 is 50% on that was 35%. He had an Aa gradient which was 91, that was up from 24 the day before and on the it was 96. His sodium is 150. Potassium 4.6. His BUN is 43, creatinine is 1. His proBNP yesterday was 1537. His urine WBCs were less than 10. ASSESSMENT: 1. Hypoxia. 2. Atrial fibrillation. PLAN: I still do not believe the patient is volume overloaded. His sodium is up from yesterday at 150. His proBNP's have not been particularly elevated and have been relatively flat over the course of the whole hospitalization despite fluid resuscitation. I believe the more likely possibility is that the patient has either aspirated or has a pulmonary embolus. He has not been on Lovenox for several days now. I will give him a one time dose of 1 mg/kg Lovenox as well as check a lower extremity venous Doppler. The patient is not a candidate for a [place]-Kia catheter at this time because I believe he is too uncooperative and any sort of sedation administered for the procedure would likely have a high chance of requiring intubation. Currently, the patient is a Do Not Intubate. I do not believe he will cooperate with a V/Q or a computed tomography angiography of the chest either and I would not particularly order a computed tomography angiography of the chest considering his recent renal insufficiency issues. Again, we will empirically treat him and check a venous Doppler of his lower extremities. cc: Cristiano Ramirez MD
[2016-12-04] MEDS: STERILE WATER INJ. INJ PRN (21:38)
[2016-12-05] MEDS: CARDIZEM 100 MG/NS 100 MG/100 ML IVPB IV SCH ×4 (03:07→17:48)
[2016-12-05] MEDS: CLINIMIX E 4.25%-5% SOLUTION 1,000 ML IV SCH ×2 (03:08→21:19)
[2016-12-05] MEDS: DUONEB (A & A) INH SCH ×6 (03:36→23:05)
[2016-12-05] MEDS: MERREM 500 MG in NS 50 ML IV SCH ×3 (04:29→20:42)
[2016-12-05 04:35] LABS: ALLEN TEST YES; BE 7.3 mmoll (-3.0-3.0); BLOOD TYPE ARTERIAL; DRAW SITE R RADIAL; METHB 0.6 % (0.0-1.5); O2(CT) 12.4 mL/dL (15.0-23.0); PO2(98.6) 86 mmHg (60-100); SAMPLE BLOOD; SAO2 98.8 % (95.0-100.0); THB 9.1 g/dL (11.5-17.4); pH(98.6) 7.41 (7.35-7.45)
[2016-12-05 04:36] LABS: MODALITY BI PAP; PCO2(98.6) 52 mmHg (35-45)
[2016-12-05 04:42] LABS: MANUAL DIFF NEEDED? NO
[2016-12-05 05:01] LABS: BASO% 0.2 % (0.0-0.8); EOS# 0.07 X1000 (0.0-0.7); EOS% 1.7 % (0.0-10.0); HEMATOCRIT 28.8 % (42.0-52.0); HEMOGLOBIN 8.9 g/dL (14.0-18.0); LYMPH# 0.49 X1000 (1.2-3.4); MCHC 30.9 g/dL (33-37); MCV 100.3 FL (81-99); MONO# 0.54 X1000 (0.11-0.59); MONO% 13.3 % (1.7-9.3); NEUT% 72.8 % (42.2-75.2); PLT 119 X1000 (130-400); RBC 2.87 XMIL (4.7-6.1)
[2016-12-05 05:10] LABS: AGAP 15; BUN 38 mg/dL (8-22); CALCIUM 8.9 mg/dL (8.8-10.2); CHLORIDE 110 mmol/L (98-107); COSMO 318; POTASSIUM 4.4 mmol/L (3.5-5.1); SODIUM 153 mmol/L (136-145); TCO2 28 mmol/L (25-35)
[2016-12-05] MEDS: HUMALOG SUBQ SCH ×4 (06:07→20:41)
--- NOTE | 2016-12-05 07:39 | Diag Imaging Result Doc PS360 ---
EXAM: CHEST-1 VIEW INDICATION: SOB TECHNIQUE: One view COMPARISON: 12/04/2016 FINDINGS: Bilateral infiltrates with a central and basilar predominance are essentially stable suggesting pulmonary edema plus or minus pneumonia. There is suggestion of pulmonary venous congestion that is stable. There are probably small effusions that are essentially stable. There is stable cardiomegaly. No new consolidation is appreciated. IMPRESSION: Stable chest. Electronically signed by Chris Soto 12/05/2016 7:37 AM
--- NOTE | 2016-12-05 08:18 | PROGRESS NOTE ---
DATE: 12/05/2016 SUBJECTIVE: He remains on BiPAP and is nonverbal. OBJECTIVE: Vital Signs: Blood pressure 180/74, heart rate 97, respirations 29, afebrile. Intake 2.2 L. Output 1.3 L. He is 4.4 L positive since admission. Skin: Warm and dry with multiple ecchymoses. HEENT: Conjunctivae are pink. Neck: Neck veins are not appreciated. Heart: Irregular and intermittently tachycardic. Lungs: Have equal breath sounds with rhonchi and a few crackles. Abdomen: Obese and soft. Bowel sounds are present. Extremities: Have 2+ edema. No clubbing or cyanosis. Laboratory Data: Sodium 153, potassium 4.4, chloride 110, bicarbonate 28, BUN 38, creatinine 0.9. IMPRESSION: 1. Acute kidney injury, resolved with intravenous fluids. His volume status is still in doubt. He is positive 4 L since admission. He is in positive fluid balance in the last 24 hours. He is not currently receiving diuretics. We will defer decisions regarding this to Dr. Ramirez, specifically regarding possible need for right heart catheterization. 2. Electrolytes: D5 water 1 L been ordered by the primary team. 3. Hypertension. He is on intravenous diltiazem for management of his atrial arrhythmias. Not clear that he could take oral medications and he has none ordered currently. We will simply use diltiazem for now for blood pressure control. cc: Mainor Escobedo MD
[2016-12-05] MEDS ORDERED: LASIX IV ONE (09:05)
[2016-12-05] MEDS: MORPHINE IV PRN ×3 (09:11→20:42)
[2016-12-05] MEDS: ASPIRIN PO SCH (09:36)
[2016-12-05] MEDS: D5W 1,000 ML IV SCH ×2 (09:41→20:43)
[2016-12-05] MEDS: NITROGLYCERIN TOP SCH ×3 (09:41→20:42)
--- NOTE | 2016-12-05 10:05 | PROGRESS NOTE ---
DATE: 12/05/2016 SUBJECTIVE: Mr. Ponce seems to be a little bit more alert today. He is following very simple commands but we are still unable to understand anything he is saying. PHYSICAL EXAMINATION: Vital signs: He is afebrile. His T-max was 99.9 degrees at 8 p.m. yesterday. Heart rate is in the 90s to low 100s. Blood pressure has been elevated in the 140s to 180s systolic. His I's and O's over the last 24 hours or so are positive around 700 mL. His cumulative I's and O's are positive 4.4 L for the course of the entire hospitalization which is around 7-8 days. General: He is in no acute distress. Cardiovascular: He is in an irregularly irregular rate controlled rhythm currently. His rate is around 90 beats per minute. He has 1+ lower extremity edema. Chest: Exam has coarse breath sounds. He has BiPAP in place. He does not have a very good inspiratory effort. Abdomen: Soft, nontender. PERTINENT DATA: Sodium is 143, potassium 4.4. His BUN is 38 with a creatinine of 0.9. His proBNP is 1,138. His ABG shows a pH of 7.41, pCO2 52. His PO2 is 86 which gives him an AA gradient of 206 which is up from 91 yesterday. He is on an FiO2 of 50%. His white count is 4. His hematocrit is 28.8. His platelet count is 119,000. Chest x-ray was reviewed. ASSESSMENT: 1. Atrial fibrillation. 2. Respiratory failure. PLAN: Patient still has evidence of intravascular depletion with an elevated sodium and a proBNP that given his right heart issues and pulmonary hypertension, is likely relatively normal for him or at least relatively low. He is likely 3rd spacing presently causing issues with pulmonary edema, as well as anasarca. He was given a dose of Lasix today by the primary team. I will put him on a little bit of nitroglycerin to try to treat his blood pressure a little bit better as well as potentially helping with some pulmonary edema. cc: Cristiano Ramirez MD
[2016-12-05] MEDS: VANCOMYCIN 2,000 MG in NS 500 ML IV SCH ×2 (11:26)
--- NOTE | 2016-12-05 15:15 | PROGRESS NOTE ---
DATE: 12/05/2016 SUBJECTIVE: The patient continues to be restless, although a little bit less in comparing with yesterday. Patient follows basic commands. He is still in restraints. OBJECTIVE: Vital Signs: Temperature 97.8 degrees, heart rate 81, respiratory rate 12, blood pressure 167/73, O2 saturation 94% on BiPAP. General: This is a 76-year-old, chronically ill- looking, and frail, male, lying in bed, in no acute distress. HEENT: Head is normocephalic, atraumatic. Anicteric sclerae and pale conjunctivae. Mucous membranes moist. Neck: Supple. No JVD noted. No carotid bruits. No lymphadenopathy. No thyromegaly. Cardiovascular: S1 and S2 heard. No murmurs, gallops, or rubs. Regular rate and rhythm. Respiratory: Decreased breath sounds globally with left side greater than the right. Some crackles still present in both bases. The patient is not using any accessory muscles or having work of breathing. Abdomen: Soft, nontender to palpation. Bowel sounds present. No organomegaly. Extremity: No clubbing or cyanosis. There is 3+ bilateral edema. Peripheral pulses present in both legs. Neurologic: Patient is restless. Follows basic commands. Moves all 4 extremities spontaneously LABORATORY DATA: White cell count 4.07, hemoglobin 8.9, hematocrit 28.8, platelets 119,000. ABG shows pH 7.31, pCO2 52. BMP shows sodium 153, creatinine normal. ASSESSMENT AND PLAN: 1. Acute respiratory failure. Unfortunately the patient continues to require BiPAP and according to nursing staff, when we stop it and use nasal cannula even at 6 L he desaturates to the mid 80s. We are going to continue with the same management. 2. Acute kidney injury, resolved. 3. Left lower lobe pneumonia. Patient is on antibiotics. We will continue with the same management. 4. Thrombocytopenia. Getting better. 5. Diabetes type 2. We will continue with sliding scale insulin. 6. Hypertension. Blood pressure is well controlled. We will continue with the same management. 7. Gross hematuria. Patient has been evaluated by urology. No new recommendations at this time. 8. History of coronary artery disease. Patient is not complaining of any chest pain. 9. Left lower extremity lesion on the leg. Stable. Wound care is following. cc: Khadar Persaud MD
[2016-12-05] MEDS: SODIUM CHLORIDE 0.9% INJ SCH (15:36)
[2016-12-05] MEDS: PROTONIX IV SCH (15:36)
[2016-12-06] MEDS: DUONEB (A & A) INH SCH ×6 (03:46→22:50)
[2016-12-06] MEDS: MERREM 500 MG in NS 50 ML IV SCH ×3 (04:10→19:29)
[2016-12-06] MEDS: NITROGLYCERIN TOP SCH ×3 (04:10→17:59)
[2016-12-06] MEDS: VANCOMYCIN 2,000 MG in NS 500 ML IV SCH ×2 (04:10→23:11)
[2016-12-06] MEDS: D5W 1,000 ML IV SCH (04:10)
[2016-12-06 04:37] LABS: ALLEN TEST YES; BE 6.6 mmoll (-3.0-3.0); BLOOD TYPE ARTERIAL; DRAW SITE R RADIAL; METHB 0.8 % (0.0-1.5); O2(CT) 15.6 mL/dL (15.0-23.0); PO2(98.6) 103 mmHg (60-100); SAMPLE BLOOD; SAO2 98.2 % (95.0-100.0); THB 11.5 g/dL (11.5-17.4); pH(98.6) 7.21 (7.35-7.45)
[2016-12-06 04:38] LABS: MODALITY BI PAP; PCO2(98.6) 93 mmHg (35-45)
[2016-12-06 05:44] LABS: MANUAL DIFF NEEDED? NO
[2016-12-06 05:48] LABS: BASO% 0.3 % (0.0-0.8); EOS# 0.13 X1000 (0.0-0.7); EOS% 2.1 % (0.0-10.0); HEMOGLOBIN 9.4 g/dL (14.0-18.0); IMM GRAN# 0.02 X1000 (0.0-0.04); IMM GRAN% 0.3 % (0.0-0.5); LYMPH% 8.2 % (20.5-51.1); MCH 31.1 PG (27-31); MCHC 30.3 g/dL (33-37); MCV 102.6 FL (81-99); MONO# 0.92 X1000 (0.11-0.59); MONO% 15.1 % (1.7-9.3); MPV 11.7 FL (7.4-10.4); PLT 118 X1000 (130-400); RBC 3.02 XMIL (4.7-6.1)
[2016-12-06] MEDS: HUMALOG SUBQ SCH ×4 (06:13→20:45)
[2016-12-06] MEDS: CARDIZEM 100 MG/NS 100 MG/100 ML IVPB IV SCH ×2 (06:14→07:40)
[2016-12-06 06:17] LABS: AGAP 11; BUN 35 mg/dL (8-22); CALCIUM 8.7 mg/dL (8.8-10.2); CHLORIDE 105 mmol/L (98-107); COSMO 310; POTASSIUM 4.6 mmol/L (3.5-5.1); SODIUM 147 mmol/L (136-145); TCO2 31 mmol/L (25-35)
--- NOTE | 2016-12-06 07:14 | Diag Imaging Result Doc PS360 ---
EXAM: CHEST-1 VIEW - 12/06/2016 HISTORY: SOB TECHNIQUE: Portable chest 0500 COMPARISON: 12/05/2016 FINDINGS: There are findings of pulmonary edema/congestive heart failure again seen. There is a possible mild increase in lower lung infiltrate/edema on the left. There are no other interval changes identified. PICC remains in place. IMPRESSION: Pulmonary edema/congestive heart failure similar to prior, except for possible mild increase in lower lung infiltrate/edema on the left. Electronically signed by Jean Pierre Burt 12/06/2016 7:12 AM
[2016-12-06 08:23] LABS: ALLEN TEST YES; BE 9.5 mmoll (-3.0-3.0); BLOOD TYPE ARTERIAL; DRAW SITE R RADIAL; METHB 1.2 % (0.0-1.5); O2(CT) 12.3 mL/dL (15.0-23.0); PO2(98.6) 58 mmHg (60-100); SAMPLE BLOOD; SAO2 91.9 % (95.0-100.0); THB 9.8 g/dL (11.5-17.4)
[2016-12-06 08:25] LABS: MODALITY BI PAP
[2016-12-06 08:26] LABS: PCO2(98.6) 84 mmHg (35-45); pH(98.6) 7.27 (7.35-7.45)
[2016-12-06] MEDS: ASPIRIN PO SCH (09:48)
[2016-12-06] MEDS ORDERED: LASIX IV ONE (12:06)
--- NOTE | 2016-12-06 13:28 | PROGRESS NOTE ---
DATE: 12/06/2016 SUBJECTIVE: Patient is still restless but better in comparing with yesterday. Still using BiPAP machine. Follows basic commands. OBJECTIVE: Vital Signs: Temperature 96.2 degrees, heart rate 86, respiratory rate 19, blood pressure 153/72, O2 saturation 94% on BiPAP machine. General: This is a chronically ill-looking and frail 76-year-old male, lying in bed, in no acute distress. HEENT: Head is normocephalic, atraumatic. Anicteric sclerae and pale conjunctivae. Mucous membranes moist. Neck: Supple. No JVD noted. No carotid bruits. No lymphadenopathy. No thyromegaly. Cardiovascular: S1 and S2 heard. No murmurs, gallops, or rubs. Regular rate and rhythm. Respiratory: Decreased breath sounds globally with left side greater than the right. Still some crackles present in both bases but patient is not using any accessory muscles or having work of breathing. Abdomen: Soft. Bowel sounds present. No organomegaly. Extremity: No clubbing or cyanosis. There is 2+ pitting edema bilaterally with signs of chronic venous insufficiency and peripheral pulses present in both legs. Neurological: Patient is alert, follows only basic commands like squeeze fingers, moves 4 extremities spontaneously. ASSESSMENT AND PLAN: 1. Acute respiratory failure. Unfortunately patient continues to require BiPAP. Nursing staff when they remove the mask to feed him O2 saturation drops down to low 80s. He has become BiPAP dependent. Pulmonary is on board. We will follow their recommendations. 2. Left lower lobe pneumonia. Patient on antibiotics as above. 3. Acute systolic congestive heart failure. We have provided yesterday 1 dose of Lasix 80 mg IV. Because we need to give him also D5 that will do for hyponatremia. The x-ray from today shows still persistent pulmonary edema. We are going to provide as I mentioned before, 1 more dose of Lasix 80 and will check chest x-ray tomorrow. 4. Diabetes type 2. We will continue with the sliding scale insulin. 5. Hypertension. Blood pressure is well controlled. 6. History of coronary artery disease. Patient is not complaining of any chest pain. cc: Khadar Persaud MD
[2016-12-06] MEDS: MORPHINE IV PRN ×3 (13:58→23:11)
--- NOTE | 2016-12-06 14:14 | PROGRESS NOTE ---
DATE: 12/06/2016 SUBJECTIVE: Mr. Ponce makes unintelligible noises to physical stimulation. He is not consistently following commands presently. OBJECTIVE: Vital Signs: He is afebrile. Heart rate of 96. He is currently in atrial fibrillation by telemetry. His blood pressure is in the 150s to 170s. General: Generally, in no acute distress. Cardiovascular: He sounds to be in an irregular rate and rhythm. No murmurs. He has trace to 1+ bilateral lower extremity edema. Chest: Exam has coarse breath sounds bilaterally. No increased work of breathing. BiPAP is currently in place. Abdomen: Soft, nontender. Skin: Warm and dry throughout. PERTINENT DATA: His white count is 6.0, hematocrit 31, platelet count is 118, 000. His ABG shows a pH of 7.27, pCO2 of 84, and PO2 of 58. His sodium is 147, which is improved. Potassium 4.6. His BUN is 35 and creatinine 0.9. His proBNP yesterday was 1138, which is actually the lowest it has been the entire hospitalization. His albumin was 3.2. ASSESSMENT: 1. Respiratory failure. 2. Atrial fibrillation. PLAN: I believe at this point his respiratory failure is possibly due to adult respiratory distress syndrome. In addition, he has hypercapnic respiratory failure as well as hypoxic respiratory failure. His AA gradient is up to 550 from 206. I agree with diuretics presently, given his significant respiratory compromise. However, I do not think that his pulmonary edema is cardiogenic in nature, given his minimal elevation in right heart pressures, normal LV function, and relatively low proBNP, considering his current situation. He is diuresing with IV Lasix. His albumin seems reasonable. He is already on topical nitrate to assist with vasodilation. cc: MD RUT Remy
[2016-12-06] MEDS: STERILE WATER INJ. INJ PRN (15:49)
[2016-12-06] MEDS: PROTONIX IV SCH (15:49)
[2016-12-06] MEDS: CLINIMIX E 4.25%-5% SOLUTION 1,000 ML IV SCH (17:59)
--- NOTE | 2016-12-06 20:08 | Extremity Venous Study ---
PROCEDURE NAME: Venous U/S Bilateral Legs - 12/04/2016 TEST: Bilateral lower extremity venous duplex study. REFERRING PHYSICIAN: Cristiano Ramirez MD READING PHYSICIAN: Jose Etienne MD DETAIL TECHNICIAN: Amberly INDICATION: Leg swelling and hypoxia. FINDINGS: The exam was somewhat limited as the patient was uncooperative and morbidly obese. The right common femoral, superficial femoral, deep femoral, greater saphenous, popliteal, posterior tibial and peroneal veins were imaged 1st. All are compressible with forward flow. No thrombus is appreciated. The left common femoral, deep femoral, superficial femoral, greater saphenous, popliteal, posterior tibial, and peroneal veins were then imaged. All were compressible with forward flow. No thrombus is appreciated. INTERPRETATION: No evidence of deep or superficial venous thrombosis in either lower extremity. cc: MD Cristiano Rose MD
[2016-12-07] MEDS: NITROGLYCERIN TOP SCH ×3 (01:33→17:26)
[2016-12-07] MEDS: GEODON IM PRN ×3 (02:47→22:53)
[2016-12-07] MEDS: STERILE WATER INJ. INJ PRN ×2 (02:48→10:40)
[2016-12-07] MEDS: DUONEB (A & A) INH SCH ×6 (03:16→23:25)
[2016-12-07] MEDS: MERREM 500 MG in NS 50 ML IV SCH ×3 (04:14→20:10)
[2016-12-07 04:36] LABS: ALLEN TEST YES; BE 11.7 mmoll (-3.0-3.0); BLOOD TYPE ARTERIAL; DRAW SITE R RADIAL; METHB 1.1 % (0.0-1.5); O2(CT) 13.3 mL/dL (15.0-23.0); PO2(98.6) 139 mmHg (60-100); SAMPLE BLOOD; SAO2 98.8 % (95.0-100.0); THB 9.6 g/dL (11.5-17.4); pH(98.6) 7.31 (7.35-7.45)
[2016-12-07 04:38] LABS: MODALITY BI PAP; PCO2(98.6) 80 mmHg (35-45)
[2016-12-07 04:45] LABS: MANUAL DIFF NEEDED? NO
[2016-12-07 05:09] LABS: BASO% 0.2 % (0.0-0.8); EOS% 1.8 % (0.0-10.0); HEMATOCRIT 29.7 % (42.0-52.0); HEMOGLOBIN 9.1 g/dL (14.0-18.0); IMM GRAN# 0.02 X1000 (0.0-0.04); IMM GRAN% 0.4 % (0.0-0.5); LYMPH# 0.51 X1000 (1.2-3.4); MCH 31.2 PG (27-31); MCHC 30.6 g/dL (33-37); MCV 101.7 FL (81-99); MONO# 0.72 X1000 (0.11-0.59); MONO% 12.7 % (1.7-9.3); MPV 11.6 FL (7.4-10.4); NEUT% 75.9 % (42.2-75.2); PLT 119 X1000 (130-400); RBC 2.92 XMIL (4.7-6.1)
[2016-12-07 05:15] LABS: AGAP 8; BUN 33 mg/dL (8-22); CALCIUM 8.9 mg/dL (8.8-10.2); CHLORIDE 109 mmol/L (98-107); COSMO 312; POTASSIUM 4.7 mmol/L (3.5-5.1); SODIUM 150 mmol/L (136-145); TCO2 33 mmol/L (25-35)
[2016-12-07] MEDS: HUMALOG SUBQ SCH ×4 (06:09→20:41)
--- NOTE | 2016-12-07 07:30 | Diag Imaging Result Doc PS360 ---
EXAM: CHEST-1 VIEW INDICATION: SOB TECHNIQUE: One view COMPARISON: 12/06/2016 FINDINGS: Right PICC line is stable. Interstitial and airspace opacities with a central and basilar predominance bilaterally are essentially stable, most compatible with pulmonary edema. No new consolidation is appreciated. There is stable cardiomegaly. IMPRESSION: Stable chest. Electronically signed by Chris Soto 12/07/2016 7:27 AM
[2016-12-07] MEDS: MORPHINE IV PRN ×3 (08:03→22:20)
[2016-12-07] MEDS: ASPIRIN PO SCH (08:54)
[2016-12-07] MEDS: LASIX IV SCH ×2 (11:08→22:00)
[2016-12-07] MEDS: PRINIVIL PO SCH (11:08)
--- NOTE | 2016-12-07 11:26 | PROGRESS NOTE ---
DATE: 12/07/2016 SUBJECTIVE: The patient is definitely a little bit more awake and following commands and answering questions. He is still requiring BiPAP machine. OBJECTIVE: Vital Signs: Temperature is 97.4, heart rate 106, respiratory rate 20, blood pressure 95/81. O2 saturation 97% on 100% oxygen by BiPAP machine. General: This is a chronically ill- looking, frail, 76-year-old male, lying in bed, in no acute distress. HEENT: Head is normocephalic, atraumatic. Anicteric sclerae and pale conjunctivae. Mucous membranes moist. Neck supple. No JVD. No carotid bruits. No lymphadenopathy. No thyromegaly. Cardiovascular: S1, S2 heard. Tachycardic. No murmurs, gallops, or rubs. Regular rate and rhythm. Respiratory: There is still decreased breath sounds globally with some crackles present in both bases. The patient is not using any accessory muscles or having work of breathing. Abdomen is soft, nontender to palpation. Bowel sounds present. No organomegaly. Extremities: No clubbing or cyanosis and 2+ pitting edema in both lower extremities with signs of chronic venous insufficiency. Neurologic: Patient is more alert comparing with yesterday and follow commands. Moves 4 extremities. LABORATORY DATA: White cell count is 5.66, hemoglobin 9.1, hematocrit 29.7, platelets 119,000. ABG shows pH 7.31. PCO2 of 80. BMP shows sodium 150, normal creatinine, and BUN 33. ASSESSMENT AND PLAN: 1. Acute respiratory failure. The patient continues to require BiPAP, and even though when he is not using BiPAP when he is eating, his O2 saturations drop to low 80s. We will continue with the same management. Pulmonary is following this patient. 2. Left lower lobe pneumonia. The patient on antibiotics. We will continue with the same management. 3. Acute systolic congestive heart failure. Although he looks swollen, cardiology is following this patient. They do not think this is coming from the Heart. At this time, we are going to continue with medications provided by Cardiology with and, also, because the chest x- ray from today shows stable chest and pulmonary edema, we are going to provide Lasix to his current treatment on a daily basis. 4. Diabetes, type 2. We will continue with sliding scale insulin. 5. Hypertension. Blood pressure is high. We add one more medication to his current treatment. 6. History of coronary artery disease, stable. cc: Khadar Persaud MD
--- NOTE | 2016-12-07 12:36 | PROGRESS NOTE ---
DATE: 12/07/2016 SUBJECTIVE: Mr. Ponce continues on BiPAP. He follows commands intermittently. PHYSICAL EXAMINATION: Vital signs: Afebrile. His heart rate is in the 90s to low 100s. Blood pressure is in the 140s to 190s systolic. General: He is in no acute distress. Cardiovascular: He is in an irregularly irregular rhythm. Rate controlled. Presently, he has trace bilateral lower extremity edema. Chest: Coarse BiPAP is in place. No in increased work of breathing. Abdomen: Soft, nontender. PERTINENT DATA: White count 5.6 hematocrit 29.7, platelet count 119,000 his ABG has pCO2 of 80 with a low pH. Sodium is 150, potassium 4.7. His BUN is 33 creatinine 0.9. ASSESSMENT: 1. Atrial fibrillation. 2. Respiratory failure. PLAN: Patient continues to be a difficult patient to manage from a volume status standpoint. I think there must be a concern that this could possibly be ARDS considering his profound volume depletion on presentation. I agree with continued diuretic use presently; however his sodium has been somewhat of an issue. Would request pulmonary input regarding this at this time regarding his continued issues with oxygenation as well as his hypercapnia. cc: Cristiano Ramirez MD
[2016-12-07] MEDS: CLINIMIX E 4.25%-5% SOLUTION 1,000 ML IV SCH (13:58)
[2016-12-07] MEDS: SODIUM CHLORIDE 0.9% INJ SCH (15:49)
[2016-12-07] MEDS: PROTONIX IV SCH (15:49)
[2016-12-07] MEDS: CARDIZEM 100 MG/NS 100 MG/100 ML IVPB IV SCH ×2 (17:26)
[2016-12-07] MEDS: VANCOMYCIN 2,000 MG in NS 500 ML IV SCH (17:26)
[2016-12-08] MEDS: NITROGLYCERIN TOP SCH ×3 (02:00→17:20)
[2016-12-08] MEDS: MORPHINE IV PRN ×3 (02:05→19:28)
[2016-12-08] MEDS: DUONEB (A & A) INH SCH ×6 (03:53→23:03)
[2016-12-08] MEDS: MERREM 500 MG in NS 50 ML IV SCH ×3 (04:21→19:31)
[2016-12-08 04:30] LABS: ALLEN TEST YES; BE 13.8 mmoll (-3.0-3.0); BLOOD TYPE ARTERIAL; DRAW SITE R RADIAL; METHB 1.1 % (0.0-1.5); O2(CT) 12.4 mL/dL (15.0-23.0); PCO2(98.6) 48 mmHg (35-45); PO2(98.6) 77 mmHg (60-100); SAMPLE BLOOD; SAO2 97.7 % (95.0-100.0); SRATE 12 BPM; THB 9.2 g/dL (11.5-17.4); pH(98.6) 7.51 (7.35-7.45)
[2016-12-08 04:31] LABS: MODALITY BI PAP
[2016-12-08 05:31] LABS: AGAP 12; BUN 33 mg/dL (8-22); CALCIUM 8.7 mg/dL (8.8-10.2); CHLORIDE 110 mmol/L (98-107); COSMO 315; POTASSIUM 4.3 mmol/L (3.5-5.1); SODIUM 153 mmol/L (136-145); TCO2 31 mmol/L (25-35)
[2016-12-08 05:37] LABS: BASO% 0.2 % (0.0-0.8); EOS# 0.32 X1000 (0.0-0.7); EOS% 7.2 % (0.0-10.0); HEMATOCRIT 29.1 % (42.0-52.0); HEMOGLOBIN 8.8 g/dL (14.0-18.0); IMM GRAN# 0.03 X1000 (0.0-0.04); IMM GRAN% 0.7 % (0.0-0.5); LYMPH# 0.63 X1000 (1.2-3.4); LYMPH% 14.3 % (20.5-51.1); MANUAL DIFF NEEDED? YES; MCH 30.1 PG (27-31); MCHC 30.2 g/dL (33-37); MCV 99.7 FL (81-99); MONO# 0.65 X1000 (0.11-0.59); MONO% 14.7 % (1.7-9.3); MPV 12.1 FL (7.4-10.4); NEUT% 62.9 % (42.2-75.2); PLT 101 X1000 (130-400); RBC 2.92 XMIL (4.7-6.1)
[2016-12-08 05:40] LABS: BANDS 2 % (0-1); EOS 4 % (1-10); LYMPHS 18 % (21-51); MONO 12 % (1-9)
[2016-12-08] MEDS: HUMALOG SUBQ SCH ×4 (06:15→21:05)
--- NOTE | 2016-12-08 08:05 | Diag Imaging Result Doc PS360 ---
CHEST-1 VIEW - 12/08/2016 INDICATION: SOB TECHNIQUE: COMPARISON: 12/07/2016 FINDINGS: There is worsening opacification of the left lung with basilar predominance. There is now about 80% opacification here. There is significant cardiomegaly and pulmonary vascular congestion similar to prior. The right lung remains clear of infiltrate. Stable right PICC line in good position. IMPRESSION: Significant worsening in opacification of the left hemithorax. Electronically signed by Yogi Vu 12/08/2016 8:02 AM
[2016-12-08] MEDS: PRINIVIL PO SCH (08:56)
[2016-12-08] MEDS: ASPIRIN PO SCH (08:56)
[2016-12-08] MEDS: CLINIMIX E 4.25%-5% SOLUTION 1,000 ML IV SCH (09:03)
[2016-12-08] MEDS: D5W 1,000 ML IV SCH ×2 (09:04→17:20)
[2016-12-08] MEDS: GEODON IM PRN (09:36)
[2016-12-08] MEDS: STERILE WATER INJ. INJ PRN (09:37)
--- NOTE | 2016-12-08 10:16 | PROGRESS NOTE ---
DATE: 12/08/2016 SUBJECTIVE: Patient continues to be awake, oriented. He still using BiPAP machine. OBJECTIVE: Vital Signs: Temperature 98.5 degrees, heart rate 80, respiratory rate 16, blood pressure 144/60, O2 saturation 95% on BiPAP machine. General Examination: This is a chronically ill-looking, morbidly obese, 76-year-old male, lying in bed, in no acute distress. HEENT: Head is normocephalic, atraumatic. Anicteric sclerae and pale conjunctivae. Mucous membranes moist. Neck: Supple. No JVD noted. No carotid bruits. No lymphadenopathy. No thyromegaly. Cardiovascular Exam: S1, S2 heard. No murmurs, gallops, or rubs. Regular rate and rhythm. Respiratory Exam: There is still decreased breath sounds globally with some crackles in both bases. Patient is not using any accessory muscles or having work of breathing. Abdomen: Soft, nontender to palpation. Abdomen is obese. Bowel sounds present. No organomegaly. Extremities: No clubbing, cyanosis, 2+ pitting edema in both lower extremities with signs of chronic venous insufficiency. Neurological Exam: Patient is more alert. Follows commands, moves all 4 extremities. LABORATORY DATA: White cell count 4.42, hemoglobin 8.8, hematocrit 29.1, platelets 101,000. ABG shows pH 7.51, pCO2 of 48, and that is on BiPAP machine. Sodium 143, potassium 4.3, chloride 110, bicarbonate 31, BUN 33, creatinine 0.8. ASSESSMENT AND PLAN: 1. Acute respiratory failure. Patient is still on BiPAP, although during the last few days the CO2 was higher. Today, there is a big change and the CO2 dropped from 80-48 today. At this point, we are going to continue requiring BiPAP because we have tried to use nasal cannula in the past, but he drops to between 80s and 85, even with of 6 L nasal cannula. Pulmonary is following this patient. The x-ray from the chest done today looks to me like and acute respiratory distress syndrome picture. Patient is Do Not Resuscitate level 2 , so intubation is not an option. We will see what pulmonary has to say today. 2. Left lower lobe pneumonia. Patient is on antibiotics and the x-ray from today shows worsening of calcification the left hemithorax. Patient has been on meropenem and vancomycin. The dose of meropenem has been started 10 days ago and vancomycin on 3 days ago. We are going to continue with the same management. 3. Systolic heart failure. Patient has been followed by a warm in. He thinks that he had previous volume depletion, but does not think he is in overt heart failure. We will continue with the same management. 4. Diabetes type 2. We will continue with sliding scale insulin. 5. Hypertension. Blood pressure is better controlled. We will continue with the same management. 6. History of coronary artery disease, stable. 7. Code status : Do Not Resuscitate level 2. cc: Khadar Persaud MD MTDD
[2016-12-08] MEDS: VANCOMYCIN 2,000 MG in NS 500 ML IV SCH (11:18)
--- NOTE | 2016-12-08 13:02 | PROGRESS NOTE ---
DATE: 12/08/2016 SUBJECTIVE: Mr. Ponce continues on BiPAP. He denies dyspnea or pain. OBJECTIVE: Vital Signs: Blood pressure 138/80, heart rate 99, and regular. Oxygen saturation 95% on BiPAP with 50% O2. Neck: Jugular venous distention cannot be appreciated. Chest: Auscultation reveals somewhat diminished breath sounds at the bases. There are no rales. Cardiac Exam: Reveals a regular rate and rhythm with distant heart sounds. No murmur or gallop could be appreciated. Extremities: He has trace edema. LABORATORY DATA: Sodium 153, chloride 110, BUN 33, creatinine 0.8. IMPRESSION: 1. Respiratory failure, hypercapnic. 2. Reported left lower lobe pneumonia. 3. Component of congestive heart failure recently felt to be present. However, patient presently appears to have prerenal azotemia following diuresis with temple of free water deficit and hyponatremia. 4. Type 2 diabetes mellitus. 5. Hypertension. 6. Atherosclerotic coronary disease. 7. Obesity and likely severe obstructive sleep apnea. 8. Patient is Do Not Resuscitate. RECOMMENDATIONS: 1. Further diuresis does not appear to be warranted. B-type natriuretic peptide levels would appear to be misleading. 2. Free water replacement. cc: Mookie Michel MD
[2016-12-08] MEDS: CARDIZEM 100 MG/NS 100 MG/100 ML IVPB IV SCH (13:32)
[2016-12-08] MEDS: PROTONIX IV SCH (15:00)
[2016-12-08] MEDS: SODIUM CHLORIDE 0.9% INJ SCH (15:00)
[2016-12-09] MEDS: MORPHINE IV PRN ×3 (01:45→21:44)
[2016-12-09] MEDS: GEODON IM PRN (01:46)
[2016-12-09] MEDS: STERILE WATER INJ. INJ PRN (01:46)
[2016-12-09] MEDS: NITROGLYCERIN TOP SCH ×3 (03:10→17:57)
[2016-12-09] MEDS: DUONEB (A & A) INH SCH ×6 (03:18→23:10)
[2016-12-09] MEDS: MERREM 500 MG in NS 50 ML IV SCH ×3 (04:02→21:30)
[2016-12-09] MEDS: D5W 1,000 ML IV SCH ×3 (04:02→23:50)
[2016-12-09 04:35] LABS: ALLEN TEST YES; BE 13.1 mmoll (-3.0-3.0); BLOOD TYPE ARTERIAL; DRAW SITE R RADIAL; METHB 0.7 % (0.0-1.5); O2(CT) 15.1 mL/dL (15.0-23.0); PO2(98.6) 85 mmHg (60-100); SAMPLE BLOOD; THB 11.1 g/dL (11.5-17.4); pH(98.6) 7.44 (7.35-7.45)
[2016-12-09 04:38] LABS: PCO2(98.6) 58 mmHg (35-45)
[2016-12-09 05:07] LABS: MANUAL DIFF NEEDED? NO
[2016-12-09 05:11] LABS: BASO% 0.3 % (0.0-0.8); EOS# 0.15 X1000 (0.0-0.7); EOS% 4.2 % (0.0-10.0); HEMATOCRIT 28.3 % (42.0-52.0); HEMOGLOBIN 8.8 g/dL (14.0-18.0); IMM GRAN# 0.02 X1000 (0.0-0.04); IMM GRAN% 0.6 % (0.0-0.5); LYMPH# 0.55 X1000 (1.2-3.4); LYMPH% 15.4 % (20.5-51.1); MCH 30.6 PG (27-31); MCHC 31.1 g/dL (33-37); MCV 98.3 FL (81-99); MONO# 0.52 X1000 (0.11-0.59); MONO% 14.5 % (1.7-9.3); PLT 101 X1000 (130-400); RBC 2.88 XMIL (4.7-6.1)
[2016-12-09 05:33] LABS: AGAP 11; BUN 30 mg/dL (8-22); CALCIUM 8.9 mg/dL (8.8-10.2); CHLORIDE 107 mmol/L (98-107); COSMO 306; SODIUM 148 mmol/L (136-145); TCO2 30 mmol/L (25-35)
[2016-12-09] MEDS: CLINIMIX E 4.25%-5% SOLUTION 1,000 ML IV SCH (06:07)
[2016-12-09] MEDS: HUMALOG SUBQ SCH ×4 (06:09→22:13)
--- NOTE | 2016-12-09 06:24 | Diag Imaging Result Doc PS360 ---
EXAM: CHEST-1 VIEW HISTORY: SOB TECHNIQUE: Portable AP COMPARISON: 12/08/2016 FINDINGS: Sternal wires are present. The heart is prominent. Improved aeration left lung. Basilar opacity on the left persists. Vascular distention remains. I believe there are small pleural effusions IMPRESSION: Slight interval improvement. Electronically signed by Melvin Dahl 12/09/2016 6:22 AM
[2016-12-09] MEDS: VANCOMYCIN 1,700 MG in NS 250 ML IV SCH (07:41)
[2016-12-09] MEDS: ASPIRIN PO SCH (08:41)
[2016-12-09] MEDS: PRINIVIL PO SCH (08:42)
[2016-12-09] MEDS: CARDIZEM 100 MG/NS 100 MG/100 ML IVPB IV SCH (09:24)
--- NOTE | 2016-12-09 11:58 | PROGRESS NOTE ---
DATE: 12/09/2016 SUBJECTIVE: Patient continues to be a little bit more awake. He is using a BiPAP machine. Does follow simple commands. OBJECTIVE: Vital Signs: Temperature 97.3 degrees, heart rate 90, respiratory rate 15, blood pressure 124/58, O2 saturation 96% on BiPAP machine. General Examination: This is a chronically ill-looking, morbidly obese, and frail, 76-year-old male, lying in bed, in no acute distress. HEENT: Head is normocephalic, atraumatic. Anicteric sclerae and pale conjunctivae. Mucous membranes moist. Neck: Supple. JVD is not possible to evaluate because of neck girth. No carotid bruits. No lymphadenopathy. No thyromegaly. Cardiovascular: S1, S2 heard. No murmurs, gallops, or rubs. Regular rate and rhythm. Respiratory: Decreased breath sounds globally. Very few crackles in both bases. Patient is not using any accessory muscles or having work of breathing. Abdomen: Soft. Nontender to palpation. Bowel sounds present. No organomegaly. Extremities: No clubbing or cyanosis. Mild pitting edema in both lower extremities. Signs of chronic venous insufficiency. Patient ion physical restraints. Neurological: Patient is somewhat awake. Follows basic commands. Moves 4 extremities. LABORATORY DATA: The CBC is 3.58, hemoglobin 8.8, hematocrit 28.3, platelets 101,000. ABG shows a pH of 7.44, pCO2 58, PO2 85. BMP: Sodium 148. Rest of the BMP is completely normal except glucose 203. ASSESSMENT: 1. Acute respiratory failure. The patient is still requiring BiPAP. We tried a Ventimask yesterday but patient keeps breathing faster and he is somewhat confused intermittently. The CO2 in the ABG shows basically worsening CO2 from 48 yesterday to 58 today. Pulmonary is following this patient. Chest x-ray looks like ARDS. The patient is a DNR level 2 so intubation is not an option. We will see what pulmonary has to say, what recommendations they can provide to us. 2. Left lower lobe pneumonia. Patient is on meropenem and vancomycin. Will continue with the same management. 3. Suspected systolic heart failure. At this time cardiology thinks that he is not in over heart failure. This patient was on Lasix but not any more. Continue following recommendations from Cardiology. 4. Diabetes mellitus type 2. We will continue with sliding scale insulin. 5. Hypertension. Blood pressure controlled. 6. History of coronary artery disease, stable. No chest pain noted 7. Code status. DNR level 2. PLAN: Overall this patient is not doing good. I was following this patient for the last week and basically his situation has been this same. He was requiring BiPAP because he was confused. Now he is a little bit more awake but still requiring BiPAP ever single day for the last 7 days. He does not seem to be in any pulmonary edema. He was on Lasix 40 mg IV q.12 hours and there was no change at all in the oxygen needs. Also, patient is receiving antibiotics for pneumonia but this is still the same. Overall the prognosis is not good. If he continues to be the same tomorrow will probably meet with the family to discuss goals of care because this patient has not improved at all. We will continue monitoring this patient closely. cc: Khadar Persaud MD
[2016-12-09] MEDS: LASIX IV SCH (13:38)
[2016-12-09] MEDS: PROTONIX IV SCH (15:41)
[2016-12-09] MEDS: SODIUM CHLORIDE 0.9% INJ SCH (15:41)
--- NOTE | 2016-12-09 17:14 | PROGRESS NOTE ---
DATE: 12/09/2016 SUBJECTIVE: Mr. Ponce continues on BiPAP and awakens readily and interacts appropriately. He denies pain or dyspnea. OBJECTIVE: Vital Signs: Blood pressure 150/80, heart rate 94 and regular with ECG monitor showing atrial fibrillation. Neck: There is no discernible jugular venous distention. Chest: Auscultating the chest reveals clear lung aguero bilaterally. Some diminished breath sounds at the bases. Cardiac: Reveals an irregular rate and rhythm without appreciable murmur or gallop. There is no evidence of peripheral edema. LAB DATA: Includes a pCO2 56 and PO2 of 84. BUN 62, creatinine 1.3, sodium 154. IMPRESSIONS: 1. Respiratory failure. Likely related to obstructive sleep apnea and pneumonia, as well as COPD. Evidence for congestive heart failure limited. He has normal left ventricular ejection fraction. He also did not improve with efforts to diurese despite developing prerenal azotemia and hypernatremia. 2. Atrial fibrillation. 3. Acute on chronic renal disease. 4. Type 2 diabetes mellitus. 5. Obesity. 6. Hypertension. 7. History of atherosclerotic coronary disease. RECOMMENDATIONS: 1. Continue pulmonary supportive care as you are doing and treatment of underlying pulmonary process. 2. Would not diurese further. 3. DNR noted. cc: Mookie Michel MD
[2016-12-10] MEDS: LASIX IV SCH ×2 (00:38→13:00)
[2016-12-10] MEDS: NITROGLYCERIN TOP SCH ×3 (01:59→17:08)
[2016-12-10] MEDS: MORPHINE IV PRN (01:59)
[2016-12-10] MEDS: CLINIMIX E 4.25%-5% SOLUTION 1,000 ML IV SCH (02:00)
[2016-12-10] MEDS: VANCOMYCIN 1,700 MG in NS 250 ML IV SCH ×2 (02:00→20:31)
[2016-12-10] MEDS: DUONEB (A & A) INH SCH ×6 (02:37→22:54)
[2016-12-10 03:58] LABS: ALLEN TEST YES; BE 12.1 mmoll (-3.0-3.0); BLOOD TYPE ARTERIAL; DRAW SITE R RADIAL; METHB 0.8 % (0.0-1.5); O2(CT) 14.4 mL/dL (15.0-23.0); PCO2(98.6) 63 mmHg (35-45); PO2(98.6) 98 mmHg (60-100); SAMPLE BLOOD; SAO2 98.6 % (95.0-100.0); THB 10.5 g/dL (11.5-17.4)
[2016-12-10 03:59] LABS: MODALITY BI PAP
[2016-12-10] MEDS: MERREM 500 MG in NS 50 ML IV SCH ×3 (04:51→19:35)
[2016-12-10] MEDS: HUMALOG SUBQ SCH ×4 (06:00→20:31)
--- NOTE | 2016-12-10 06:14 | Diag Imaging Result Doc PS360 ---
EXAM: CHEST-1 VIEW HISTORY: SOB TECHNIQUE: Portable COMPARISON: 12/09/2016 FINDINGS: There is now complete opacification of the left hemithorax. This is likely a combination of infiltrates, atelectasis and pleural fluid. Sternal wires are present. No change in the right-sided PICC line. There is vascular distention in the right lung IMPRESSION: Interval worsening with now complete opacification of the left hemithorax. Electronically signed by Melvin Dahl 12/10/2016 6:12 AM
[2016-12-10 06:45] LABS: MANUAL DIFF NEEDED? NO
[2016-12-10 06:54] LABS: BASO% 0.2 % (0.0-0.8); EOS# 0.19 X1000 (0.0-0.7); EOS% 4.4 % (0.0-10.0); HEMATOCRIT 29.1 % (42.0-52.0); LYMPH# 0.68 X1000 (1.2-3.4); LYMPH% 15.8 % (20.5-51.1); MCH 30.2 PG (27-31); MCHC 30.9 g/dL (33-37); MCV 97.7 FL (81-99); MONO# 0.57 X1000 (0.11-0.59); MONO% 13.3 % (1.7-9.3); MPV 12.4 FL (7.4-10.4); NEUT% 66.3 % (42.2-75.2); PLT 100 X1000 (130-400); RBC 2.98 XMIL (4.7-6.1)
[2016-12-10 07:08] LABS: AGAP 9; BUN 26 mg/dL (8-22); CALCIUM 8.3 mg/dL (8.8-10.2); CHLORIDE 103 mmol/L (98-107); COSMO 298; SODIUM 145 mmol/L (136-145); TCO2 33 mmol/L (25-35)
[2016-12-10] MEDS: PRINIVIL PO SCH (08:46)
[2016-12-10] MEDS: ASPIRIN PO SCH (08:46)
[2016-12-10] MEDS: D5W 1,000 ML IV SCH ×2 (09:36→19:34)
--- NOTE | 2016-12-10 14:42 | PROGRESS NOTE ---
DATE: 12/10/2016 SUBJECTIVE: The patient was seen and examined. He is still very uncomfortable on a nonrebreather. He denies having any fever or chills. The patient is still having a productive cough. OBJECTIVE: Vital Signs: Blood pressure 112/54, pulse of 80, respirations 21, temperature 98.1 degrees, saturation of 99% on BiPAP 60% FiO2. General Appearance: A morbidly obese white male, in mild distress. HEENT: Anicteric. Clear conjunctivae. Cardiovascular: S1 and S2. Normal rate and rhythm. No murmur, rubs, or gallops. Pulmonary: Clear to auscultation bilaterally. Gastrointestinal: Soft, nontender, nondistended. Normoactive bowel sounds. Musculoskeletal: No clubbing, cyanosis, or edema. LABORATORY DATA: White count 4.3, hemoglobin 9, hematocrit 29.1, platelets of 100,000. Sodium 145, potassium 4, chloride 103, bicarbonate 33, BUN 26, creatinine 0.8, glucose 173. ASSESSMENT AND PLAN: A 76-year-old admitted to the hospital with acute respiratory failure. 1. Acute respiratory failure and a combination of pneumonia, systolic congestive heart failure exacerbation that is acute, and morbid obesity. Pulmonology is following. The patient is on nebulizer treatment and oxygen as needed, and he is on meropenem as well as vancomycin. 2. Congestive heart failure exacerbation. The patient is on Lasix intravenously 40 twice a day. He is also on lisinopril 10 daily. 3. Diabetes. Continue sliding scale insulin. 4. Overall prognosis is poor. The patient's x-rays today show left hemithorax opacifications. There may be a mucous plug due to the fast interval development. However, the patient might need a bronchoscopy, but will defer that to pulmonary. 5. Deep vein thrombosis prophylaxis. His platelets are too low for deep vein thrombosis prophylaxis with medication. We will put the patient on sequential compression device. CODE STATUS: The patient is a DNR level 2.
[2016-12-10] MEDS: PROTONIX IV SCH (15:56)
[2016-12-10] MEDS: SODIUM CHLORIDE 0.9% INJ SCH (15:56)
[2016-12-11] MEDS: CARDIZEM 100 MG/NS 100 MG/100 ML IVPB IV SCH ×2 (00:17→16:32)
[2016-12-11] MEDS: CLINIMIX E 4.25%-5% SOLUTION 1,000 ML IV SCH ×2 (00:54→17:33)
[2016-12-11] MEDS: LASIX IV SCH ×4 (00:55→21:37)
[2016-12-11] MEDS: NITROGLYCERIN TOP SCH ×3 (01:43→17:03)
[2016-12-11] MEDS: MORPHINE IV PRN ×3 (01:47→20:54)
[2016-12-11] MEDS: DUONEB (A & A) INH SCH ×6 (03:08→23:13)
[2016-12-11] MEDS: MERREM 500 MG in NS 50 ML IV SCH ×3 (04:12→19:29)
[2016-12-11 04:22] LABS: ALLEN TEST YES; BE 9.5 mmoll (-3.0-3.0); BLOOD TYPE ARTERIAL; DRAW SITE R RADIAL; METHB 1.1 % (0.0-1.5); O2(CT) 21.7 mL/dL (15.0-23.0); PO2(98.6) 114 mmHg (60-100); SAMPLE BLOOD; SAO2 98.3 % (95.0-100.0); pH(98.6) 7.31 (7.35-7.45)
[2016-12-11 04:23] LABS: MODALITY BI PAP; PCO2(98.6) 79 mmHg (35-45)
[2016-12-11 04:37] LABS: MANUAL DIFF NEEDED? NO
[2016-12-11 04:44] LABS: BASO% 0.2 % (0.0-0.8); EOS# 0.19 X1000 (0.0-0.7); EOS% 4.1 % (0.0-10.0); HEMATOCRIT 27.4 % (42.0-52.0); HEMOGLOBIN 8.7 g/dL (14.0-18.0); LYMPH# 0.74 X1000 (1.2-3.4); LYMPH% 16.1 % (20.5-51.1); MCH 30.6 PG (27-31); MCHC 31.8 g/dL (33-37); MCV 96.5 FL (81-99); MONO# 0.63 X1000 (0.11-0.59); MONO% 13.7 % (1.7-9.3); MPV 12.2 FL (7.4-10.4); NEUT% 65.9 % (42.2-75.2); PLT 102 X1000 (130-400); RBC 2.84 XMIL (4.7-6.1)
[2016-12-11 05:45] LABS: AGAP 8; BUN 27 mg/dL (8-22); CALCIUM 8.2 mg/dL (8.8-10.2); CHLORIDE 99 mmol/L (98-107); COSMO 291; POTASSIUM 4.1 mmol/L (3.5-5.1); SODIUM 141 mmol/L (136-145); TCO2 34 mmol/L (25-35)
[2016-12-11] MEDS: HUMALOG SUBQ SCH ×4 (06:09→20:55)
--- NOTE | 2016-12-11 07:12 | Diag Imaging Result Doc PS360 ---
EXAM: CHEST-1 VIEW HISTORY: SOB TECHNIQUE: Erect AP portable at 0500 COMMENT: Compared to the previous study of 12/10/2016 the left upper lobe has become reexpanded. There is still extensive pulmonary edema. This may actually be somewhat worse in the right lower lobe. There is still a large left pleural effusion. The cardiac silhouette is still enlarged. IMPRESSION: Improved atelectasis in the left upper lobe. Pulmonary edema, slightly worse in the right base. Electronically signed by Jules De León 12/11/2016 7:10 AM
[2016-12-11] MEDS: D5W 1,000 ML IV SCH (07:16)
[2016-12-11] MEDS: ASPIRIN PO SCH (08:56)
[2016-12-11] MEDS: PRINIVIL PO SCH (09:07)
[2016-12-11 10:24] LABS: MODALITY BI PAP
--- NOTE | 2016-12-11 10:36 | PROGRESS NOTE ---
DATE: 12/11/2016 SUBJECTIVE: The patient is still having significant shortness of breath. He is still on the BiPAP. No fever, no chills overnight. Saturations in the 100s on the BiPAP. The nursing staff reported that the patient desaturates very quickly when his BiPAP is removed. OBJECTIVE: Vital Signs: Blood pressure 123/53, pulse of 88, respirations 20, temperature of 98 degrees, saturations of 98-100% on 90% of FiO2. General Appearance: Obese, white male in moderate distress. HEENT: Anicteric sclerae. Clear conjunctivae. Neck: Supple. Thick. Cardiovascular: S1 and S2. Normal rate and rhythm. No murmur, rubs, or gallops. Pulmonary: Crackles. Coarse breath sounds bilaterally. GI: Soft, nontender, nondistended. Normoactive bowel sounds. Musculoskeletal: No clubbing, cyanosis, or edema. Laboratory: White count of 4.61, hemoglobin 8.7, hematocrit of 27.4, platelets of 102,000. Chemistry: Sodium 141, potassium 4.1, chloride 99, bicarb 34, BUN 27, creatinine 0.8, glucose of 180. ASSESSMENT AND PLAN: A 76-year-old admitted to the hospital with acute respiratory failure. 1. Acute respiratory failure, probably secondary to his pneumonia and hypercapnia respiratory failure. We will continue BiPAP and nebulizer. We will keep him on meropenem and vancomycin for now. Pulmonology is following. Cultures have remained negative thus far. However, the patient's clinical course is not improving. We will keep him on antibiotics as needed. 2. Nutrition. The patient is on amino acid intravenously. 3. Hypertension. Continue lisinopril and diltiazem drips as well as the as needed Lopressor. The patient is not able to take off the BiPAP long enough to eat or to take his medication without desaturation. 4. Deep vein thrombosis prophylaxis. We will put the patient on sequential compression devices for now. His platelets are too low for anticoagulations. 5. Code status. The patient is a [id number] level 2. Overall prognosis is very poor. Consider palliative care. We will continue to monitor the patient for now.
[2016-12-11] MEDS: VANCOMYCIN 1,700 MG in NS 250 ML IV SCH (13:22)
[2016-12-11] MEDS: PROTONIX IV SCH (15:34)
[2016-12-11] MEDS: SODIUM CHLORIDE 0.9% INJ SCH (15:34)
[2016-12-11] MEDS: MUCOMYST 20% INH SCH (19:29)
[2016-12-12] MEDS: MORPHINE IV PRN ×4 (01:35→23:16)
[2016-12-12] MEDS: NITROGLYCERIN TOP SCH ×3 (01:35→17:12)
[2016-12-12] MEDS: DUONEB (A & A) INH SCH ×6 (03:07→23:15)
[2016-12-12 04:12] LABS: ALLEN TEST YES; BE 14.3 mmoll (-3.0-3.0); BLOOD TYPE ARTERIAL; DRAW SITE R RADIAL; O2(CT) 16.8 mL/dL (15.0-23.0); PO2(98.6) 125 mmHg (60-100); SAMPLE BLOOD; SAO2 99.2 % (95.0-100.0); THB 12.2 g/dL (11.5-17.4); pH(98.6) 7.42 (7.35-7.45)
[2016-12-12 04:13] LABS: MODALITY BI PAP; PCO2(98.6) 64 mmHg (35-45)
[2016-12-12 04:48] LABS: MANUAL DIFF NEEDED? NO
[2016-12-12 05:12] LABS: AGAP 12; ALBUMIN 2.5 g/dL (3.5-5.0); ALKALINE PHOSPHATASE 78 U/L (32-122); BUN 24 mg/dL (8-22); CALCIUM 8.4 mg/dL (8.8-10.2); CHLORIDE 98 mmol/L (98-107); COSMO 293; GOT 28 U/L (10-34); GPT 11 U/L (10-44); SODIUM 144 mmol/L (136-145); TCO2 34 mmol/L (25-35); TOTAL BILIRUBIN 0.53 mg/dL (0.20-1.00); TOTAL PROTEIN 5.5 g/dL (6.3-8.3)
[2016-12-12] MEDS: MERREM 500 MG in NS 50 ML IV SCH ×3 (05:16→20:06)
[2016-12-12 05:25] LABS: BASO% 0.4 % (0.0-0.8); EOS# 0.19 X1000 (0.0-0.7); EOS% 3.8 % (0.0-10.0); HEMATOCRIT 28.9 % (42.0-52.0); HEMOGLOBIN 9.1 g/dL (14.0-18.0); LYMPH# 0.62 X1000 (1.2-3.4); LYMPH% 12.4 % (20.5-51.1); MCHC 31.5 g/dL (33-37); MCV 95.4 FL (81-99); MONO# 0.72 X1000 (0.11-0.59); MONO% 14.4 % (1.7-9.3); MPV 12.1 FL (7.4-10.4); PLT 97 X1000 (130-400); RBC 3.03 XMIL (4.7-6.1)
[2016-12-12] MEDS: LASIX IV SCH ×3 (05:27→22:04)
--- NOTE | 2016-12-12 06:13 | Diag Imaging Result Doc PS360 ---
EXAM: CHEST-1 VIEW HISTORY: SOB TECHNIQUE: Portable AP COMPARISON: 12/11/2016 FINDINGS: No change in the right-sided PICC line. Sternal wires are present. The heart is enlarged. There is a [id number] sized left-sided pleural effusion with basilar atelectasis. Bilateral infiltrates believed to be pulmonary edema. The overall appearance is quite similar to that of the prior exam. IMPRESSION: No interval improvement. Electronically signed by Melvin Dahl 12/12/2016 6:10 AM
[2016-12-12] MEDS: HUMALOG SUBQ SCH ×4 (06:27→20:09)
[2016-12-12] MEDS: VANCOMYCIN 1,700 MG in NS 250 ML IV SCH (07:13)
[2016-12-12] MEDS: MUCOMYST 20% INH SCH ×2 (08:07→19:20)
[2016-12-12] MEDS: PRINIVIL PO SCH (08:33)
[2016-12-12] MEDS: ASPIRIN PO SCH (08:33)
--- NOTE | 2016-12-12 11:54 | PROGRESS NOTE ---
DATE: 12/12/2016 SUBJECTIVE: The patient is feeling better today. He was able to get the BiPAP, and eating his breakfast. He asked for more solid food. He denies having have any fever or chills. No cough. OBJECTIVE: Vital Signs: Blood pressure 152/79, pulse of 86, respirations 15, temperature 97 degrees, satting 100% on BiPAP and 94% on room air. General Appearance: Obese, white male in mild distress. HEENT: Anicteric sclerae. Clear conjunctivae. Neck: Supple. No JVD. No bruit. Cardiovascular: S1, S2. Normal rate and rhythm. No murmur, rubs, or gallops. Pulmonary: Crackles bilaterally. GI: Soft, obese, nontender, nondistended. Lower Extremities: 1+ pitting edema. Integument: The patient is having psoriasis that is chronic. LABORATORY: Today white count 4.99, hemoglobin 9.1, hematocrit of 28.9, platelets of 97. Chemistry: Sodium 140, potassium 4.0, chloride 98, bicarbonate 34. BUN 24, creatinine 0.8, glucose of 128. ProBNP is 770. Blood gas this morning showed a pH of 7.4, CO2 of 64, and PO2 of 125. ASSESSMENT AND PLAN: This is a 76-year-old, obese white male, admitted to the hospital for acute respiratory failure. 1. Acute respiratory failure secondary to pneumonia and hypercapnia. He is doing better. We will use BiPAP p.r.n. Keep him on vancomycin and meropenem for now. We will continue to follow culture. Infectious disease is following. 2. Hypertension. Continue diltiazem and lisinopril, as well as Lopressor p.r.n. Cardiology is following. 3. Deep vein thrombosis prophylaxis, place on sequential compression devices. 4. Thrombocytopenia. We will continue to monitor the patient. This is chronic. 5. Morbid obesity noted. 6. Diabetes type 2. Will continue sliding scale insulin and we will monitor the patient closely. 7. Hypertension, again same as above. CODE STATUS: The patient is a DNR level 2.
[2016-12-12] MEDS ORDERED: ALBUMIN 25% IV ONE (13:05)
[2016-12-12] MEDS: CARDIZEM 100 MG/NS 100 MG/100 ML IVPB IV SCH (14:15)
[2016-12-12] MEDS: CLINIMIX E 4.25%-5% SOLUTION 1,000 ML IV SCH (14:15)
--- NOTE | 2016-12-12 14:56 | PROGRESS NOTE ---
DATE: 12/12/2016 SUBJECTIVE: Mr. Ponce appears much more alert today. He continues on BiPAP. His AA gradient is 365 today, which is down from 500. PHYSICAL EXAMINATION: General: He is in no acute distress. Vital Signs: He is afebrile. Heart rate of 86. Blood pressure is 152/79. His intake and output appears to be significantly negative over the last 24 hours, of around 3 L. Cardiovascular: He is in irregularly irregular rhythm. This is consistent with atrial fibrillation, which is known. He has minimal lower extremity edema. Chest: Coarse bilateral breath sounds. No increased work of breathing. Abdomen: Soft, nontender, nondistended. He has no obvious organomegaly. Skin: Warm and dry throughout. PERTINENT DATA: His laboratory data shows a white count of 4.9. His hematocrit is 28.9. Platelet count is 97. His sodium is 144, potassium is 4, BUN 24, creatinine 0.8. His proBNP is 770. His albumin level is 2.5. ASSESSMENT: 1. Diastolic heart failure. 2. Atrial fibrillation. PLAN: We will add in albumin today. Continue on the IV Lasix. He seems to be breathing better, and his A-a gradient is down. cc: Cristiano Ramirez MD
[2016-12-12] MEDS: SODIUM CHLORIDE 0.9% INJ SCH (15:40)
[2016-12-12] MEDS: PROTONIX IV SCH (15:40)
[2016-12-12] MEDS: STERILE WATER INJ. INJ PRN (20:06)
[2016-12-12] MEDS: GEODON IM PRN (20:06)
[2016-12-12] MEDS ORDERED: ATIVAN IV ONE (21:41)
[2016-12-12] MEDS: BENADRYL IV PRN (22:04)
[2016-12-13] MEDS: NITROGLYCERIN TOP SCH ×3 (03:05→17:23)
[2016-12-13] MEDS: MORPHINE IV PRN ×3 (03:05→21:52)
[2016-12-13] MEDS: VANCOMYCIN 1,700 MG in NS 250 ML IV SCH ×2 (03:05→19:31)
[2016-12-13] MEDS: DUONEB (A & A) INH SCH ×6 (03:30→23:15)
[2016-12-13] MEDS: MERREM 500 MG in NS 50 ML IV SCH ×3 (04:39→19:31)
[2016-12-13] MEDS: TYLENOL PO PRN (04:40)
[2016-12-13] MEDS: BENADRYL IV PRN (04:40)
[2016-12-13 04:56] LABS: ALLEN TEST YES; BE 18.4 mmoll (-3.0-3.0); BLOOD TYPE ARTERIAL; DRAW SITE R RADIAL; METHB 0.4 % (0.0-1.5); O2(CT) 12.4 mL/dL (15.0-23.0); PO2(98.6) 107 mmHg (60-100); SAMPLE BLOOD; SAO2 100.3 % (95.0-100.0); THB 8.9 g/dL (11.5-17.4); pH(98.6) 7.47 (7.35-7.45)
[2016-12-13 04:57] LABS: MODALITY BI PAP; PCO2(98.6) 61 mmHg (35-45)
[2016-12-13 05:52] LABS: MANUAL DIFF NEEDED? NO
[2016-12-13 06:03] LABS: BASO% 0.2 % (0.0-0.8); EOS# 0.11 X1000 (0.0-0.7); HEMATOCRIT 28.6 % (42.0-52.0); HEMOGLOBIN 8.9 g/dL (14.0-18.0); LYMPH# 0.79 X1000 (1.2-3.4); LYMPH% 14.6 % (20.5-51.1); MCH 29.6 PG (27-31); MCHC 31.1 g/dL (33-37); MONO# 0.94 X1000 (0.11-0.59); MONO% 17.4 % (1.7-9.3); MPV 12.6 FL (7.4-10.4); NEUT% 65.8 % (42.2-75.2); PLT 89 X1000 (130-400); RBC 3.01 XMIL (4.7-6.1)
[2016-12-13 06:17] LABS: AGAP 8; BUN 25 mg/dL (8-22); CALCIUM 8.5 mg/dL (8.8-10.2); CHLORIDE 97 mmol/L (98-107); COSMO 290; POTASSIUM 3.8 mmol/L (3.5-5.1); SODIUM 142 mmol/L (136-145); TCO2 37 mmol/L (25-35)
[2016-12-13] MEDS: LASIX IV SCH ×2 (06:27→14:10)
[2016-12-13] MEDS: HUMALOG SUBQ SCH ×4 (06:27→20:04)
--- NOTE | 2016-12-13 06:58 | Diag Imaging Result Doc PS360 ---
EXAM: CHEST-1 VIEW HISTORY: SOB TECHNIQUE: Erect AP portable chest at 05:15 COMMENT: There is cardiomegaly. There is pulmonary edema. There is some fluid in the minor fissure on the right. There is denser opacification in the left lower lobe than elsewhere which may indicate atelectasis or pneumonia. Compared to 12/12/2016 there is been no appreciable change. IMPRESSION: Cardiomegaly and pulmonary edema. Left lower lobe atelectasis. Electronically signed by Jules De León 12/13/2016 6:56 AM
[2016-12-13] MEDS: CLINIMIX E 4.25%-5% SOLUTION 1,000 ML IV SCH ×2 (07:27→10:04)
[2016-12-13] MEDS: MUCOMYST 20% INH SCH ×2 (07:44→19:25)
[2016-12-13] MEDS: CARDIZEM 100 MG/NS 100 MG/100 ML IVPB IV SCH (08:18)
[2016-12-13] MEDS: PRINIVIL PO SCH (08:18)
[2016-12-13] MEDS: ASPIRIN PO SCH (08:23)
--- NOTE | 2016-12-13 13:23 | PROGRESS NOTE ---
DATE: 12/13/2016 SUBJECTIVE: The patient is feeling well. He is off of the BiPAP and on nasal cannula. Appears to be very comfortable. No fever. No chills. No nausea, vomiting, or diarrhea. OBJECTIVE: Vital Signs: Blood pressure 108/58, pulse 95, respirations 20, temperature 97.5 degrees, and saturation of 99%. General Appearance: An obese white male in no acute distress. HEENT: Anicteric. Clear conjunctivae. Neck: Supple. No JVD. No bruit. Cardiovascular: Normal S1 and S2. Normal rate and rhythm. No murmur, rubs, or gallops. Pulmonary: Clear to auscultation bilaterally. Gastrointestinal: Soft, nontender, nondistended. Normoactive bowel sounds. Musculoskeletal: No clubbing, cyanosis, or edema. Integument: The patient has significant psoriasis that appears to be chronic. LABORATORY: White count 5.41, hemoglobin 8.9, hematocrit of 28.6, platelets of 289,000. Chemistry: Sodium 142, potassium 3.9, chloride 97, bicarbonate 27, BUN 25, creatinine 0.8, glucose 140. ASSESSMENT AND PLAN: This is a 76-year-old white male, admitted to the hospital for acute respiratory failure. 1. Acute respiratory failure, probably secondary to pneumonia and hypercapnia. He is doing better on nasal cannula. Continue vancomycin and meropenem. Will transfer the patient to the floor. 2. Hypertension. Continue lisinopril. 3. Deep vein thrombosis. Will put the patient on SCDs for now, since he has thrombocytopenia. 4. Diabetes, type 2. Continue sliding scale insulin. We will transfer the patient to the floor and will ask PT to ambulate the patient.
--- NOTE | 2016-12-13 13:31 | PROGRESS NOTE ---
DATE: 12/13/2016 SUBJECTIVE: Mr. Ponce reports he feels somewhat better. He apparently was able to get off the Ventimask today but apparently was eating and had a choking type spell and was put back on BiPAP. PHYSICAL EXAMINATION: He is afebrile. Heart rate of 95, blood pressure 108/56. General: He is in no acute distress. Cardiovascular: He is in an irregularly irregular rhythm. No obvious murmurs. No S3. He has trace lower extremity edema. Chest: Exam is coarse bilateral breath sounds throughout. No increased work of breathing. Abdomen: Is soft, nontender. PERTINENT DATA: White count 5.4, hematocrit 28, platelet count is 89,000. His sodium is 142, potassium 3.8, BUN 25, creatinine 0.8 which is very stable for this patient. His I's and O's over the last 24 hours are negative around 3 L. ASSESSMENT: 1. Diastolic heart failure. 2. Atrial fibrillation. 3. Respiratory failure. PLAN: I would continue with his current rate of diuresis. His BUN and creatinine seem to be maintaining reasonably well. We will continue him on the current medications for now. cc: Cristiano Ramirez MD
[2016-12-13] MEDS: PROTONIX IV SCH (15:17)
[2016-12-13] MEDS: SODIUM CHLORIDE 0.9% INJ SCH (15:17)
[2016-12-13] MEDS: ATIVAN IM PRN (17:23)
[2016-12-13 18:28] LABS: ALLEN TEST YES; BE 16.4 mmoll (-3.0-3.0); BLOOD TYPE ARTERIAL; DRAW SITE R RADIAL; O2(CT) 12.9 mL/dL (15.0-23.0); PO2(98.6) 58 mmHg (60-100); SAMPLE BLOOD; SAO2 91.7 % (95.0-100.0); THB 10.3 g/dL (11.5-17.4)
[2016-12-13 18:30] LABS: MODALITY VENTIMASK; PCO2(98.6) 71 mmHg (35-45)
[2016-12-13] MEDS ORDERED: HALDOL IV PRN ×2 (18:31→18:36)
[2016-12-14] MEDS: NITROGLYCERIN TOP SCH ×3 (01:24→17:30)
[2016-12-14] MEDS: LASIX IV SCH ×2 (01:24→13:22)
[2016-12-14] MEDS ORDERED: BENADRYL PO ONE (01:29)
[2016-12-14] MEDS: MORPHINE IV PRN ×6 (01:43→18:32)
[2016-12-14] MEDS: ATIVAN IM PRN (02:20)
[2016-12-14] MEDS: DUONEB (A & A) INH SCH ×6 (03:10→23:05)
[2016-12-14] MEDS: MERREM 500 MG in NS 50 ML IV SCH ×3 (04:25→20:37)
[2016-12-14] MEDS: GEODON IM PRN (04:25)
[2016-12-14] MEDS: STERILE WATER INJ. INJ PRN (04:26)
[2016-12-14 04:51] LABS: ALLEN TEST YES; BE 17.8 mmoll (-3.0-3.0); BLOOD TYPE ARTERIAL; DRAW SITE R RADIAL; METHB 0.8 % (0.0-1.5); O2(CT) 13.1 mL/dL (15.0-23.0); PO2(98.6) 96 mmHg (60-100); SAMPLE BLOOD; SAO2 99.3 % (95.0-100.0); THB 9.5 g/dL (11.5-17.4); pH(98.6) 7.49 (7.35-7.45)
[2016-12-14 04:52] LABS: MODALITY BI PAP; PCO2(98.6) 57 mmHg (35-45)
[2016-12-14 05:15] LABS: MANUAL DIFF NEEDED? NO
[2016-12-14 05:20] LABS: BASO% 0.2 % (0.0-0.8); EOS# 0.13 X1000 (0.0-0.7); EOS% 2.8 % (0.0-10.0); HEMATOCRIT 28.6 % (42.0-52.0); HEMOGLOBIN 9.1 g/dL (14.0-18.0); LYMPH% 15.2 % (20.5-51.1); MCH 30.1 PG (27-31); MCHC 31.8 g/dL (33-37); MCV 94.7 FL (81-99); MONO# 0.74 X1000 (0.11-0.59); MONO% 16.1 % (1.7-9.3); MPV 12.7 FL (7.4-10.4); NEUT% 65.7 % (42.2-75.2); PLT 94 X1000 (130-400); RBC 3.02 XMIL (4.7-6.1)
[2016-12-14 05:52] LABS: AGAP 11; BUN 25 mg/dL (8-22); CALCIUM 8.7 mg/dL (8.8-10.2); CHLORIDE 94 mmol/L (98-107); COSMO 289; POTASSIUM 3.6 mmol/L (3.5-5.1); SODIUM 141 mmol/L (136-145); TCO2 36 mmol/L (25-35)
[2016-12-14] MEDS: HUMALOG SUBQ SCH ×4 (06:14→20:40)
--- NOTE | 2016-12-14 07:12 | Diag Imaging Result Doc PS360 ---
EXAM: CHEST-1 VIEW HISTORY: SOB TECHNIQUE: AP portable at 0415 COMMENT: There is cardiomegaly. There is pulmonary edema particularly in the lower lung aguero. There is apparent focal opacity in the upper perihilar region on the left which is slightly worse in appearance than on 12/13/2016. There is likely to be bilateral pleural fluid . IMPRESSION: Pulmonary edema with bilateral pleural effusions. Atelectasis versus pneumonia left upper lobe Electronically signed by Jules De León 12/14/2016 7:10 AM
[2016-12-14] MEDS: MUCOMYST 20% INH SCH ×2 (07:46→19:15)
--- NOTE | 2016-12-14 10:03 | PROGRESS NOTE ---
DATE: 12/14/2016 SUBJECTIVE: The patient has been back on his BiPAP. He was confused yesterday afternoon, and ABGs were checked. His carbon dioxide climbed up to 71, and we had to put him back on the BiPAP and held his transfer. No fever, no chills. OBJECTIVE: Vital Signs: His blood pressure 128/66, pulse of 96, respirations 20, temperature 99.2 degrees, saturation of 91% on 5 liters nasal cannula. General Appearance: An obese white male on the BiPAP, appears to be comfortable. HEENT: Anicteric. Clear conjunctivae. Neck: Supple. No JVD. No bruit. Cardiovascular: S1 and S2. Normal rate and rhythm. No murmur, rubs, or gallops. Pulmonary: Clear to auscultation bilaterally. Gastrointestinal: Soft, nontender, nondistended. Normoactive bowel sounds. Musculoskeletal: No clubbing, cyanosis, or edema. Integumentary: He has psoriasis. DIAGNOSTIC DATA: White count 4.61, hemoglobin 9.1, hematocrit 20.6, platelets 94,000. Chemistry: Sodium 141, potassium 3.6, chloride 94, bicarbonate 36, BUN 29, creatinine 0.9, glucose 163. Chest x-ray this morning showed pulmonary edema with bilateral pleural effusion, and there is some atelectasis versus pneumonia in the left upper lobe. ASSESSMENT AND PLAN: This is a 76-year-old admitted to the hospital for acute respiratory failure. 1. Acute respiratory failure secondary to hypoxia and hypercapnia. The patient is still on meropenem. Pulmonology is following. The patient is on Lasix twice a day. Pleural effusion noted. He is also on vancomycin as well. 2. Hypertension. We will continue Lasix and as needed hydralazine. 3. Morbid obesity, noticed. 4. Psoriasis, noted. 5. We will keep the patient in the intensive care unit for now, and we will hold up on the transfer.
[2016-12-14] MEDS: ASPIRIN PO SCH (10:25)
[2016-12-14] MEDS: PRINIVIL PO SCH (10:25)
[2016-12-14] MEDS ORDERED: LASIX IV ONE (13:01)
[2016-12-14] MEDS ORDERED: NS 250 ML ONE (13:38)
[2016-12-14] MEDS: VANCOMYCIN 1,700 MG in NS 250 ML IV SCH (14:15)
--- NOTE | 2016-12-14 14:23 | PROGRESS NOTE ---
DATE: 12/14/2016 SUBJECTIVE: Mr. Ponce continues to be on BiPAP. He has had some attempts of coming off BiPAP on a Ventimask with limited success. OBJECTIVE: Vital signs: On physical examination, afebrile. Heart rate of 86, blood pressure 107/53. His I's and O's over the last 24 hours seemed to be negative around 600 mL. His cumulative intake/output over the course of the hospitalization are positive 10 L. General: He is no acute distress. Cardiovascular: He is in an irregular rate and rhythm. No murmurs. He has trace lower extremity edema. Chest Exam: Coarse breath sounds bilaterally. No increased work of breathing. Abdomen: Soft, nontender. PERTINENT DATA: White count is 4.6, his hematocrit is 28.6, platelet count is 94. Sodium is 141, potassium 3.6, BUN 25, creatinine 0.9. ASSESSMENT: 1. Diastolic heart failure. 2. Respiratory failure. 3. Atrial fibrillation. PLAN: His atrial fibrillation seems reasonably well controlled over the last 24 hours. I would recommend continued diuretics in this patient. I believe his Clinimix has been stopped and he had some significant intake over the last 24 hours. I have stopped his IV Protonix and placed him on oral Protonix. Hopefully we can get him on a decreased intake regimen, such that we can try to effect a better diuresis. He is on Lasix at 40 mg IV q. 12 hours. cc: Cristiano Ramirez MD
[2016-12-15] MEDS: NITROGLYCERIN TOP SCH ×3 (02:06→18:17)
[2016-12-15] MEDS: LASIX IV SCH ×2 (02:06→12:21)
[2016-12-15] MEDS: DUONEB (A & A) INH SCH ×6 (03:35→23:12)
[2016-12-15] MEDS: MERREM 500 MG in NS 50 ML IV SCH ×3 (05:04→20:07)
[2016-12-15 05:08] LABS: ALLEN TEST YES; BE 19.5 mmoll (-3.0-3.0); BLOOD TYPE ARTERIAL; DRAW SITE R RADIAL; METHB 0.6 % (0.0-1.5); O2(CT) 11.5 mL/dL (15.0-23.0); PO2(98.6) 84 mmHg (60-100); SAMPLE BLOOD; SAO2 99.3 % (95.0-100.0); THB 8.4 g/dL (11.5-17.4); pH(98.6) 7.45 (7.35-7.45)
[2016-12-15 05:09] LABS: MODALITY BI PAP; PCO2(98.6) 66 mmHg (35-45)
[2016-12-15 06:07] LABS: MANUAL DIFF NEEDED? NO
[2016-12-15] MEDS: MORPHINE IV PRN (06:13)
[2016-12-15 06:33] LABS: AGAP 10; BUN 23 mg/dL (8-22); CALCIUM 8.4 mg/dL (8.8-10.2); CHLORIDE 95 mmol/L (98-107); COSMO 288; POTASSIUM 3.6 mmol/L (3.5-5.1); SODIUM 142 mmol/L (136-145); TCO2 37 mmol/L (25-35)
[2016-12-15 06:47] LABS: BASO% 0.5 % (0.0-0.8); EOS# 0.13 X1000 (0.0-0.7); EOS% 3.1 % (0.0-10.0); HEMATOCRIT 26.8 % (42.0-52.0); HEMOGLOBIN 8.3 g/dL (14.0-18.0); LYMPH# 0.59 X1000 (1.2-3.4); LYMPH% 14.1 % (20.5-51.1); MCH 29.6 PG (27-31); MCV 95.7 FL (81-99); MONO# 0.61 X1000 (0.11-0.59); MONO% 14.6 % (1.7-9.3); MPV 12.9 FL (7.4-10.4); NEUT% 67.7 % (42.2-75.2); PLT 110 X1000 (130-400)
[2016-12-15] MEDS ORDERED: PROTONIX PO SCH (07:00)
[2016-12-15] MEDS: HUMALOG SUBQ SCH ×4 (07:15→21:02)
[2016-12-15] MEDS: MUCOMYST 20% INH SCH ×2 (07:36→19:37)
[2016-12-15] MEDS: ASPIRIN PO SCH (08:23)
[2016-12-15] MEDS: PRINIVIL PO SCH (08:23)
[2016-12-15] MEDS: VANCOMYCIN 1,700 MG in NS 250 ML IV SCH (08:23)
--- NOTE | 2016-12-15 08:34 | Diag Imaging Result Doc PS360 ---
EXAM: CHEST-1 VIEW INDICATION: SOB TECHNIQUE: One view COMPARISON: 12/14/2016 FINDINGS: There is better inspiration on the current study. A right PICC line is in stable position. Bilateral infiltrates most consistent with pulmonary edema appear to have improved slightly. No new consolidations are appreciated. Cardiac silhouette is stable. IMPRESSION: Better inspiration and improvement of bilateral infiltrates most compatible with edema. Electronically signed by Chris Soto 12/15/2016 8:31 AM
[2016-12-15] MEDS ORDERED: LASIX IV ONE ×3 (10:15→13:09)
--- NOTE | 2016-12-15 10:32 | PROGRESS NOTE ---
DATE: 12/15/2016 SUBJECTIVE: The patient is feeling better today. He is awake, alert, oriented. Answers questions appropriately. No fever and no chills overnight. No shortness of breath. The patient tolerates the BiPAP at night well. OBJECTIVE: Vital signs: Blood pressure 124/80, pulse of 105, respiration 15, temperature 97.5 degrees, saturations of 90% on 5 L nasal cannula.General appearance: Obese white male, in no acute distress. HEENT: Anicteric. Clear conjunctivae. Neck: Supple. No JVD. No bruit. Cardiovascular: S1, S2. Normal rate and rhythm. No murmur, rubs, or gallops. Pulmonary: Crackles bilaterally. GI: Abdomen is soft, obese, nontender, nondistended. Normoactive bowel sounds. Musculoskeletal: No clubbing, cyanosis, or edema. Integument: The patient is still having the same psoriasis. LABORATORY: White count of 4.19, hemoglobin 8.3, hematocrit of 26.8, platelets of 110,000. Chemistry: Sodium 142, potassium 3.6, chloride 95, bicarb 37. BUN 23, creatinine 0.8, glucose 112. ASSESSMENT AND PLAN: This is a 76-year-old white male, admitted to the hospital for acute respiratory failure. 1. Acute respiratory failure secondary to hypoxia and hypercapnia, as well as pneumonia. The patient is on meropenem and vancomycin. We will continue the antibiotic until Saturday and then we will stop it all together. The patient has had 2 weeks of antibiotics. We will continue BiPAP support whenever he is asleep at night. 2. Hypertension. The patient is on Lasix and p.r.n. hydralazine. 3. Morbid obesity, noted. 4. Psoriasis, noted. We will transfer the patient to the floor for now and advised the nursing staff to keep the patient on a BiPAP whenever he is asleep during the day, and he will need to be on BiPAP at night. He tends to get confused if his carbon dioxide gets above 70.
[2016-12-15] MEDS ORDERED: LASIX 160 MG in NS 25 ML IV ONE (11:15)
[2016-12-15] MEDS: TENORMIN PO SCH (11:29)
[2016-12-15] MEDS: ZYLOPRIM PO SCH (11:29)
[2016-12-15] MEDS ORDERED: NS 250 ML ONE (12:14)
--- NOTE | 2016-12-15 13:29 | PROGRESS NOTE ---
DATE: 12/15/2016 SUBJECTIVE: Mr. Ponce has been moved to the floor. He is currently on face mask. He reports somewhat diffuse body aches. He thinks his breathing is not as well as it has been. PHYSICAL EXAMINATION: Vital Signs: He is afebrile. His heart rates seem to be anywhere from the 90s to 110s, generally. Blood pressure is 136/69. His I's and O's for the course of the hospitalization have been positive 7.7 L, but over the last 24 hours he has been negative around 2.8. General: He is in no acute distress. Cardiovascular: He is in an irregularly irregular rhythm. Currently, he is rate controlled. He has trace lower extremity edema. Chest: Has coarse upper airway noise with poor inspiratory effort. Abdomen: Soft and nontender. No obvious organomegaly. Skin: Warm and dry throughout. PERTINENT DATA: White count 4.1, hematocrit 26.8, and platelet count is 110,000. His ABG was reviewed. He has an AA gradient of 261, which is down from 332 yesterday. His sodium is 142, potassium 3.6. His BUN is 23 and creatinine 0.8. Yesterday, they were 25 and 0.9. ASSESSMENT: 1. Potential diastolic heart failure. 2. Respiratory failure. 3. Atrial fibrillation. PLAN: His atrial fibrillation appears to be well controlled. I will give him additional Lasix IV 80 mg x1 now. We will continue to try to diurese the patient. cc: Cristiano Ramirez MD
[2016-12-15] MEDS: ATIVAN IM PRN (13:50)
[2016-12-16] MEDS: VANCOMYCIN 1,700 MG in NS 250 ML IV SCH (02:59)
[2016-12-16] MEDS: NITROGLYCERIN TOP SCH ×3 (03:01→17:01)
[2016-12-16] MEDS: DUONEB (A & A) INH SCH ×6 (03:41→23:05)
[2016-12-16] MEDS: MERREM 500 MG in NS 50 ML IV SCH (04:55)
[2016-12-16 06:25] LABS: MANUAL DIFF NEEDED? NO
[2016-12-16] MEDS: HUMALOG SUBQ SCH ×4 (06:29→21:11)
[2016-12-16 06:33] LABS: BASO% 0.6 % (0.0-0.8); EOS# 0.12 X1000 (0.0-0.7); EOS% 2.3 % (0.0-10.0); HEMATOCRIT 28.4 % (42.0-52.0); HEMOGLOBIN 8.9 g/dL (14.0-18.0); LYMPH% 19.4 % (20.5-51.1); MCH 29.9 PG (27-31); MCHC 31.3 g/dL (33-37); MCV 95.3 FL (81-99); MONO# 0.93 X1000 (0.11-0.59); MPV 12.6 FL (7.4-10.4); NEUT% 59.7 % (42.2-75.2); PLT 143 X1000 (130-400); RBC 2.98 XMIL (4.7-6.1)
[2016-12-16 06:46] LABS: CALCIUM 8.8 mg/dL (8.8-10.2); POTASSIUM 3.7 mmol/L (3.5-5.1)
--- NOTE | 2016-12-16 08:24 | Diag Imaging Result Doc PS360 ---
EXAM: CHEST-1 VIEW INDICATION: SOB TECHNIQUE: One view COMPARISON: 12/15/2016 FINDINGS: The lung apices are excluded from the [id number]. The right PICC line cannot be identified. It may have been removed or it may be due to positioning of the patient. Bilateral infiltrates most compatible with edema are stable to marginally improved. No new consolidations are appreciated. Cardiac silhouette is stable. IMPRESSION: Stable to marginal improvement of bilateral infiltrates. Electronically signed by Chris Soto 12/16/2016 8:22 AM
[2016-12-16] MEDS: MORPHINE IV PRN ×3 (08:39→23:37)
[2016-12-16] MEDS: ZYLOPRIM PO SCH (08:40)
[2016-12-16] MEDS: ASPIRIN PO SCH (08:40)
[2016-12-16] MEDS: PRINIVIL PO SCH (08:40)
[2016-12-16] MEDS: TENORMIN PO SCH ×2 (08:56→21:11)
[2016-12-16] MEDS: MUCOMYST 20% INH SCH ×2 (09:26→19:59)
--- NOTE | 2016-12-16 14:41 | PROGRESS NOTE ---
DATE: 12/16/2016 SUBJECTIVE: Mr. Ponce looks much better today. He is on a nasal cannula. Seems comfortable. He is working with physical therapy. OBJECTIVE: VITAL SIGNS: He is afebrile. His heart rate is 60, blood pressure 105/49. His I's and O's for the course of the hospitalization have been positive 8.5 L but he was negative over the last 24 hours. General: He is in no acute distress. Cardiovascular: He sounds to be in an irregularly irregular rhythm consistent with his previously known atrial fibrillation. He has trace lower extremity edema. Chest: Has coarse bilateral breath sounds. No increased work of breathing. Abdomen: Soft, nontender. PERTINENT DATA: He had a chest x-ray performed this morning showing a stable to marginal improvement of bilateral infiltrates. His laboratory data was reviewed including a CBC. His sodium is 142, potassium 3.7, BUN is 36 with a creatinine of 1.8 which is up from 23 and 0.8. ASSESSMENT: 1. Mild acute renal failure. 2. Respiratory failure. PLAN: His volume status continues to be somewhat difficult to discern but he does seem to be better off from a respiratory standpoint today. Perhaps in order to maintain an adequate volume status from a respiratory standpoint he needs to have a mild amount of renal insufficiency. I would likely consider changing him over to oral diuretics in the morning if possible if his renal function is stable. Presently, I have no acute cardiac recommendations. cc: Cristiano Ramirez MD
--- NOTE | 2016-12-16 15:25 | PROGRESS NOTE ---
DATE: 12/16/2016 SUBJECTIVE: The patient is feeling well. Had a good night last night. His nursing staff says he keeps taking his clothes off. His mentation is alert and oriented x3. OBJECTIVE: Vital signs: Vital signs blood pressure 105/49, pulse of 60, respirations 20, temp 97.4 degrees sat of 95% on 6 L nasal cannula. General appearance: Well-developed well- nourished white male in no acute distress. HEENT: Anicteric sclerae. Clear conjunctivae. Neck: Supple. No JVD. No bruit. Cardiovascular: S1, S2. Normal rate and rhythm. No murmur, rubs, or gallops. Pulmonary: Mild crackles bilaterally. GI: Soft, nontender, nondistended. Normoactive bowel sounds. Musculoskeletal: No clubbing, cyanosis, or edema. LABORATORY: White count 5.16, hemoglobin 8.9, hematocrit 28.4, platelets of 143,000. Chemistry: Sodium 142, potassium 3.7, chloride 95, bicarb 34, BUN 36, creatinine 1.8, glucose of 130. ASSESSMENT AND PLAN: This is a 76-year-old white male, admitted to the hospital for acute respiratory failure. 1. Acute respiratory failure. Probably secondary to pneumonia. We will finish up his antibiotics today. He has 2 weeks of antibiotics. There is no reason to keep him on antibiotics at this point. All cultures have remained negative. We will direct current cardioversion meropenem and vancomycin today. We will watch the patient in-house for now. 2. Acute renal failure. The patient received a high dose of Lasix yesterday. We will hold his Lasix since his creatinine went from 0.8 to 1.8 today. We will renally dose all of his home medications and we will watch the patient in-house for another day. We will consult social scientist for rehabilitation.
[2016-12-16] MEDS ORDERED: MERREM 500 MG in NS 50 ML IV SCH ×4 (17:00)
[2016-12-17] MEDS ORDERED: MORPHINE IM PRN (00:11)
[2016-12-17] MEDS: NITROGLYCERIN TOP SCH ×3 (02:13→17:03)
[2016-12-17] MEDS: DUONEB (A & A) INH SCH ×6 (03:06→22:46)
[2016-12-17] MEDS: ATIVAN IM PRN (03:50)
[2016-12-17] MEDS: MUCOMYST 20% INH SCH ×2 (07:29→19:55)
[2016-12-17 07:35] LABS: MANUAL DIFF NEEDED? NO
[2016-12-17] MEDS: HUMALOG SUBQ SCH ×4 (07:41→23:05)
--- NOTE | 2016-12-17 07:57 | Diag Imaging Result Doc PS360 ---
CHEST-1 VIEW - 12/17/2016 INDICATION: SOB TECHNIQUE: COMPARISON: 12/16/2016 FINDINGS: Stable sternotomy changes. Stable severe cardiomegaly and pulmonary vascular congestion. Stable bilateral infiltrates compatible with pulmonary edema. IMPRESSION: No change from prior. Electronically signed by Yogi Vu 12/17/2016 7:54 AM
[2016-12-17 08:02] LABS: BASO% 0.4 % (0.0-0.8); EOS# 0.13 X1000 (0.0-0.7); EOS% 2.4 % (0.0-10.0); HEMATOCRIT 27.5 % (42.0-52.0); HEMOGLOBIN 8.5 g/dL (14.0-18.0); LYMPH# 0.92 X1000 (1.2-3.4); LYMPH% 16.9 % (20.5-51.1); MCH 29.4 PG (27-31); MCHC 30.9 g/dL (33-37); MCV 95.2 FL (81-99); MONO% 18.4 % (1.7-9.3); MPV 12.8 FL (7.4-10.4); NEUT% 61.9 % (42.2-75.2); PLT 162 X1000 (130-400); RBC 2.89 XMIL (4.7-6.1)
[2016-12-17 08:06] LABS: ALLEN TEST YES; BE 14.9 mmoll (-3.0-3.0); BLOOD TYPE ARTERIAL; DRAW SITE R RADIAL; METHB 0.8 % (0.0-1.5); O2(CT) 10.9 mL/dL (15.0-23.0); PO2(98.6) 53 mmHg (60-100); SAMPLE BLOOD; THB 8.9 g/dL (11.5-17.4); pH(98.6) 7.43 (7.35-7.45)
[2016-12-17 08:12] LABS: CALCIUM 8.8 mg/dL (8.8-10.2)
[2016-12-17] MEDS: ASPIRIN PO SCH (09:35)
[2016-12-17] MEDS: ZYLOPRIM PO SCH (09:36)
[2016-12-17] MEDS: TENORMIN PO SCH ×2 (09:36→23:05)
[2016-12-17 09:46] LABS: PCO2(98.6) 62 mmHg (35-45)
[2016-12-17 09:47] LABS: MODALITY CANNULA
--- NOTE | 2016-12-17 11:00 | Diag Imaging Result Doc PS360 ---
EXAM: CT THORAX W/O CONTRAST HISTORY: sob/ follow up on pneumonia TECHNIQUE: Dose reduction protocol COMPARISON: 11/29/2016 FINDINGS: There continue to be small to moderate-sized pleural effusions. The one on the right measures 4.5 cm in the midline posteriorly where is the one on the left measures 3.5 cm. Cardiomegaly remains. No thoracic aortic aneurysm. Prominent atherosclerosis. There are several calcified mediastinal lymph nodes. Interval worsening in the atelectasis and infiltrates in the left lower lobe. Mild worsening in the left upper lobe. Sternal wires are present. IMPRESSION: Overall interval worsening. Electronically signed by Melvin Dahl 12/17/2016 10:57 AM
--- NOTE | 2016-12-17 12:58 | PROGRESS NOTE ---
DATE: 12/17/2016 SUBJECTIVE: Mr. Ponce symptomatically seems to be doing okay today. He is having some cough. His shortness of breath overall over the last 48 hours seems to be generally improved. PHYSICAL EXAMINATION: Vital Signs: He is afebrile. Heart rate seems to be in the 60s to the 90s predominantly. His blood pressure is 117/30. His I's and O's more recently, is positive, around a liter. For the course of the hospitalization, is positive 8.8 L. General: He is in no acute distress. Cardiovascular: He sounds to be in an irregularly irregular rhythm which is consistent with his known atrial fibrillation. He has 1+ lower extremity edema. Chest: Exam has particularly coarse breath sounds throughout. He has a poor inspiratory effort. No increased work of breathing. Abdomen: Soft, nontender, nondistended. No obvious organomegaly. PERTINENT DATA: His sodium is 143, potassium 4, BUN 48, creatinine 2.8, which is up from 36 and 1.8. ASSESSMENT: 1. Diastolic failure. 2. Acute renal insufficiency. 3. Respiratory insufficiency. PLAN: He had a chest CT performed today demonstrating moderate sized pleural effusions with a right-sided one measuring 4.5 cm and the left one measuring 3.5 cm. They did not read out any evidence of pulmonary edema on this study. However, there was worsening infiltrates in the left lower lobe and mild worsening in the left upper lobe. Presently, he certainly seems to be on the hypovolemia side of things from an intravascular standpoint. I will check an albumin. Consideration for possible thoracentesis. However, I am unclear if this will have a significant impact in his dyspnea. I would defer that decision to pulmonary at this point. I would withhold diuresis presently, considering his intravascular hypovolemia and renal insufficiency. cc: Cristiano Ramirez MD
[2016-12-17 13:27] LABS: ALLEN TEST YES; BE 14.1 mmoll (-3.0-3.0); BLOOD TYPE ARTERIAL; DRAW SITE L RADIAL; METHB 0.6 % (0.0-1.5); O2(CT) 12.8 mL/dL (15.0-23.0); PO2(98.6) 69 mmHg (60-100); SAMPLE BLOOD; SAO2 95.4 % (95.0-100.0); THB 9.7 g/dL (11.5-17.4); pH(98.6) 7.43 (7.35-7.45)
[2016-12-17 13:29] LABS: MODALITY CANNULA; PCO2(98.6) 61 mmHg (35-45)
--- NOTE | 2016-12-17 15:25 | Diag Imaging Result Doc PS360 ---
EXAM: US RENAL 2 (RETROPER) COMPLETE HISTORY: decreased renal function TECHNIQUE: COMPARISON: 11/29/2016 FINDINGS: Difficult exam due to the patient's large body habitus and condition: The right kidney measures 13.3 x 5.8 x 6.6 cm. Normal renal echogenicity and cortical thickness. No renal stone or hydronephrosis. The left kidney measures 13.3 x 5.5 x 6.5 cm. Normal renal echogenicity and cortical thickness. No renal stone or hydronephrosis. A Curran catheter has the urinary bladder decompressed. IMPRESSION: Normal renal ultrasound. Electronically signed by Melvin Dahl 12/17/2016 3:23 PM
--- NOTE | 2016-12-17 15:53 | PROGRESS NOTE ---
DATE: 12/17/2016 SUBJECTIVE: Today Mr. Ponce referred to be doing a little better. No acute problem. According to the nurses he gets agitated and removes his PICC line. OBJECTIVELY: Vitals: Blood pressure is 117/30, pulse of 83, respirations 14, temperature is 98.8 degrees. General: Mr. Ponce 76-year-old male. He is in bed. Did not seem to be in a remarkable distress. HEENT: Mucosa is pink and moist. Anicteric. Acyanotic. Neck: Supple. Chest: Air entry is bilaterally reduced. There is bibasilar crepitations. Cardiovascular: Irregularly irregular. Abdomen: Soft, distended. Extremities: About 2+ pedal edema. 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 Skin: There is multiple erythematous papular squamous rash all over the extensor surfaces. LABORATORY DATA: WBC is 5.44, hemoglobin is 8.5, platelet count of 164,000. Chemistry is reviewed, sodium is 143, potassium 4.0, chloride 93, bicarb is 37, creatinine is 2.8, pH is 7.4, pCO2 is 61, PaO2 is 63. ASSESSMENT: 1. Acute hypercarbic and hypoxemic respiratory failure. 2. Bilateral pleural effusions. 3. Pneumonia on presentation. Patient has been treated. 4. Acute kidney injury. Creatinine continues to get worse. Patient was given some doses of Lasix the day before and it looks like this probably might have compromised the kidney function. He is no more on Lasix and will keep very close eye on him. 5. Acute diastolic heart failure. 6. Atrial fibrillation, currently rate controlled. Patient is on atenolol and aspirin. 7. Delirium likely related to prolonged hospital stay. 8. Psoriasis noted. PLAN: In general I think Mr. Ponce seems to be doing relatively fine. I see Nephrology has ordered certain urine studies. Will be waiting on that but I think eventually we would have to remove the Curran catheter since patient has been using this for the entire hospital stay. Patient has PT on board and also both Cardiology and Nephrology also on board. cc: Jerrod Yang MD MTDD
[2016-12-17 16:35] LABS: UR CREAT RANDOM 228.8 mg/dL (14-26); UR PROT RANDOM 197.2 mg/dL
[2016-12-17 18:46] LABS: URINE SOURCE CATH
[2016-12-17 18:55] LABS: URINE MICRO REVIEW NEEDED? YES
[2016-12-17 18:57] LABS: BILIRUBIN URINE SMALL (NEGATIVE); BLOOD URINE LARGE (NEGATIVE); COLOR ORANGE; GLUCOSE URINE NEGATIVE (NEGATIVE); LEUKOCYTES URINE NEGATIVE (NEGATIVE); NITRITE URINE NEGATIVE (NEGATIVE); PH URINE 5.5; PROTEIN URINE 200 mg/dL (NEGATIVE); SP GRAVITY URINE 1.017; TURBIDITY URINE TURBID (CLEAR); UR EPITHELIAL CELLS <10 /HPF (<10); URINE BACTERIA NEGATIVE /HPF; URINE RBC TNTC /HPF (<10); UROBILINOGEN URINE 3 mg/dL (NORMAL)
[2016-12-17 19:11] LABS: URINE CASTS GRANULAR PRESENT; URINE SMALL ROUND CELLS TRANS PRESENT
[2016-12-18] MEDS: NITROGLYCERIN TOP SCH ×2 (01:47→11:10)
[2016-12-18] MEDS: DUONEB (A & A) INH SCH ×6 (03:51→23:20)
[2016-12-18] MEDS: TYLENOL PO PRN ×2 (04:03→11:17)
[2016-12-18 04:49] LABS: ALLEN TEST YES; BE 14.5 mmoll (-3.0-3.0); BLOOD TYPE ARTERIAL; DRAW SITE R RADIAL; METHB 0.6 % (0.0-1.5); O2(CT) 11.2 mL/dL (15.0-23.0); PCO2(98.6) 45 mmHg (35-45); PO2(98.6) 116 mmHg (60-100); SAMPLE BLOOD; SAO2 99.8 % (95.0-100.0); pH(98.6) 7.54 (7.35-7.45)
[2016-12-18 04:50] LABS: MODALITY CANNULA
[2016-12-18] MEDS: HUMALOG SUBQ SCH ×4 (06:02→16:45)
[2016-12-18 06:33] LABS: MANUAL DIFF NEEDED? NO
[2016-12-18 06:42] LABS: BASO% 0.5 % (0.0-0.8); EOS# 0.19 X1000 (0.0-0.7); EOS% 4.3 % (0.0-10.0); HEMATOCRIT 27.2 % (42.0-52.0); HEMOGLOBIN 8.4 g/dL (14.0-18.0); LYMPH# 0.73 X1000 (1.2-3.4); LYMPH% 16.6 % (20.5-51.1); MCH 29.3 PG (27-31); MCHC 30.9 g/dL (33-37); MCV 94.8 FL (81-99); MONO# 0.62 X1000 (0.11-0.59); MONO% 14.1 % (1.7-9.3); MPV 12.4 FL (7.4-10.4); NEUT% 64.5 % (42.2-75.2); PLT 156 X1000 (130-400); RBC 2.87 XMIL (4.7-6.1)
[2016-12-18 07:21] LABS: ALBUMIN 3.1 g/dL (3.5-5.0); POTASSIUM 3.9 mmol/L (3.5-5.1); TOTAL BILIRUBIN 0.7 mg/dL (0.20-1.00); TOTAL PROTEIN 6.4 g/dL (6.3-8.3)
[2016-12-18] MEDS: MUCOMYST 20% INH SCH ×2 (07:31→19:35)
--- NOTE | 2016-12-18 07:39 | Diag Imaging Result Doc PS360 ---
EXAM: CHEST-1 VIEW - 12/18/2016 HISTORY: SOB TECHNIQUE: Portable chest 0500 COMPARISON: 12/17/2016 FINDINGS: The patient is rotated towards the left. Right basilar opacity appears stable. Left mid and lower hemithorax opacity appears to have decreased slightly. There are no other interval changes identified. IMPRESSION: Stable right basilar opacity. Slight decrease in left mid and lower hemithorax opacity. Electronically signed by Jean Pierre Burt 12/18/2016 7:36 AM
[2016-12-18] MEDS: ZYLOPRIM PO SCH ×2 (07:52→08:03)
[2016-12-18] MEDS: ASPIRIN PO SCH ×2 (07:52→08:02)
[2016-12-18] MEDS: TENORMIN PO SCH (08:02)
[2016-12-18] MEDS: NS 1,000 ML IV SCH (11:09)
--- NOTE | 2016-12-18 11:11 | PROGRESS NOTE ---
DATE: 12/18/2016 SUBJECTIVE: Today, Mr. Ponce refers to be doing pretty fine. Does not have any acute complaints. OBJECTIVE: Vital Signs: Blood pressure is 111/57, pulse of 83, respirations are 19, temperature is 97.6 degrees. General Examination: Mr. Ponce is a 76-year-old, male. He is in bed. Does not seem to be in any distress. HEENT: Mucosa is pink, slightly dry. Anicteric. Acyanotic. Neck: Supple. Chest: Air entry is bilaterally reduced. There are diffuse bilateral crepitations in the posterior lung aguero. Cardiovascular: Irregularly irregular. Abdomen: Soft, nontender. Extremities: About 2+ pedal edema. 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 Skin: Has multiple erythematous papular squamous rash all over the extensors surfaces and on the abdomen. Laboratory Data: WBC is 4.4, hemoglobin is 8.4, platelet count of 156,000. Chemistry reviewed. Sodium is 142, potassium is 3.9, chloride is 92, bicarb is 36, creatinine is 3.3 , and BUN is 56. A urine sample was done yesterday. The patient has a FENa of 0.2% and a fraction excretion of nitrogen 11.8. Both of them are consistent with the fact that he is volume depleted. Urine output of 840 mL was charted yesterday. Patient has an accumulative positive balance of 9798. Most of it I think is in the lungs and also the extremities. ASSESSMENT: 1. Acute mixed respiratory failure. This is improved. The patient will use BiPAP as needed. 2. Bilateral pleural effusions noted. 3. Pneumonia on presentation, resolved. 4. Acute kidney injury. Creatinine is getting worse. The patient has urine studies which are consistent with prerenal etiology. However, in the urinalysis, the patient also has a granular cast which would be consistent with acute atubular necrosis. I think patient has both prerenal acute kidney injury which has gone far to develop acute tubular necrosis. He is having very marginal urine output. We will give him some IV fluids today. Keep a very close eye on his respiratory status. Transfer him to the intensive care unit if he starts to decompensate from a respiratory standpoint. We withheld the Lasix yesterday. I think that has contributed to his current state. 5. Acute diastolic heart failure. 6. Atrial fibrillation currently, rate controlled. Patient is on atenolol. 7. Delirium, improved. 8. Psoriasis. 9. Metabolic alkalosis, likely from contraction alkalosis from excessive diuretic use. PLAN: In general, Mr. Ponce seems to be doing a lot better from a clinical standpoint. His mentation has improved. I saw him, the , and other 2 family members with them. He was able to relate and have a very rational conversation with me today. Of concern is that his creatinine is going up and his fractional excretion of both nitrogen and sodium are consistent with the fact that it is prerenal. Patient also has elements in the urinalysis which is consistent with possible ATN. We are going to give him gentle fluid today and pay very close attention to his respiratory status. I have ordered an hourly urine output charting so that we can track his Is and Os very strictly. If he is decompensating from a respiratory standpoint, we will transfer him to the ICU and put on BiPAP for now. The patient does not want to be under the ventilator. cc: Jerrod Yang MD MTDD
--- NOTE | 2016-12-18 14:04 | PROGRESS NOTE ---
DATE: 12/18/2016 SUBJECTIVE: Mr. Ponce appears to be doing relatively stable today. OBJECTIVE: PHYSICAL EXAMINATION: Vital Signs: He is afebrile. Heart rate of 93. Blood pressure 110/49. His I' s and O's appear to be positive 9.4 L over the course of the hospitalization. Over the last 24 hours he is positive around 1500 mL. Generally: No acute distress. Cardiovascular: He sounds to be in a irregularly irregular rhythm consistent with his atrial fibrillation. He trace to 1+ bilateral lower extremity edema. Chest: Exam sounds somewhat coarse. Poor inspiratory effort. Some mild expiratory wheezes. No increased work of breathing. Abdomen: Soft, nontender. PERTINENT DATA: White count 4.4, hematocrit 27.2, platelet count 156,000. His sodium is 141, potassium is 3.9, BUN is 56 with a creatinine of 3.3 which is up from 48 to 2.8 respectively. His albumin is 3.1. ASSESSMENT: 1. Acute kidney injury. 2. Respiratory failure. 3. Likely chronic obstructive pulmonary disease. PLAN: Patient continues to receive IV fluids which I agree with at this time. His chest CT findings were noted yesterday. His atrial fibrillation seems reasonably well controlled. I will stop his nitrates and consider amlodipine addition in the future. There was no evidence of pulmonary edema on his CT yesterday. Considering his predominant issues seem to be pulmonary and renal in etiology presently, we will plan on following the patient from a distance. Please contact us with future questions. cc: Cristiano Ramirez MD MTDD
--- NOTE | 2016-12-18 14:58 | PROGRESS NOTE ---
DATE: 12/18/2016 TIME SEEN: 829 SUBJECTIVE: Mr. Ponce is a 76-year-old white male whom we had seen previously upon his initial admission for acute kidney injury on CKD stage 3. Patient had appeared to be dehydrated secondary to his low FENa score. During that period of time while he was in ICU, we had given him IV fluids, where he continued to improve to a creatinine of 1.1 to 1.3. The patient remains in the hospital. He is having difficulty breathing. He has had some pulmonary edema during his hospitalization appearing upon chest x-ray. He remains short of breath. He has received heavy doses of IV diuretics in the last 24-48 hours. On 12/16/2016 his creatinine was 1.8, 2.8 yesterday and 3.3 today. We have been asked to evaluate the patient and assist with his medical treatment. Patient denies any chest pain. Positive for increased work of breathing. Positive for lower extremity swelling. His vital signs this a.m. were temperature 97.6 degrees, blood pressure 111/57, heart rate 83, and respirations are 20. He remains on 5L nasal cannula. Last recorded saturation is 94%. He has had a drop in his urinary output, though it has improved in the last 24 hours. He has had 840 in and 200 out, though he has 250 mL currently sitting in his urometer of dark, concentrated urine. LABORATORY DATA: This a.m., sodium of 141, potassium 3.9, chloride 92, CO2 of 36. BUN is 56 and creatinine is 3.3. Glucose is 162. His anion gap is 13, calcium is 9, phosphorus 5.1, and albumin of 3.1. His white count is 4.4, hemoglobin 8.4, hematocrit 27.2, with a platelet count of 156,000. Patient's urinalysis for urine electrolytes indicate a FENa score of 0.24% with a fractionated urea of 11.86%, again continues to indicate prerenal at less than 35%. IMAGING: Patient has a chest x-ray this a.m. indicating stable right basilar opacity with slight decreased left mid hemothorax opacity. Otherwise, he had age chest CT yesterday that showed interval worsening of his pneumonia with atelectasis, mild worsening of the left upper lobe. Subsequently, his chest CT findings were noted, indicating chronic obstructive pulmonary disease versus pneumonia, with no evidence of pulmonary edema on his CT yesterday. PHYSICAL EXAMINATION: General: This is a 76-year-old white male. He is in no acute distress. He does appear chronically ill. Skin: Warm and dry. HEENT: Normocephalic, atraumatic. Conjunctivae pale. He has MOUNA. Mucous membranes are moist. Neck: Supple. Trachea midline. Unable to determine JVD secondary to body habitus. Cardiovascular: Irregular rate and rhythm. He is in atrial fibrillation on the monitor. Heart rate is running in the 70- 90 range. Unable to determine murmur or gallop. Lungs: He has scattered rhonchi, coarse breath sounds. Unable to determine any crackles secondary to body habitus. He continues on O2, equal excursion. Abdomen: Soft, large, distended, and nontender. Positive bowel sounds. Extremities: He has 2+ pretibial edema. He has chronic venous stasis. No clubbing or cyanosis. Integumentary: No rashes or lesions evident. Neurological: He is alert and oriented to person and to place today. ASSESSMENT AND PLAN: 1. Acute kidney injury on chronic kidney disease stage 3. Patient has an elevated creatinine of 3.3 this a.m. It appears that he is in need of fluid volume repletion secondary to having increased diuretic therapy in the last 24-48 hours. We will indicate our need to Cardiology and defer to them to start IV fluids at their discretion. His urine output has picked up in the last 24 hours, even though he has not had any further diuretic therapy. We will continue to monitor his intake/output and his laboratory studies on a daily basis. 2. Electrolytes. These remain stable. 3. Acid-base balance. Patient is mildly alkalotic secondary to his respiratory status. He does remain on oxygen. The patient does have possible contraction alkalosis with excessive diuretic use. We will continue to monitor. 4. Anemia. This remains low but stable, with no indications for intervention. 5. Acute diastolic heart failure. This is currently being followed by Cardiology. 6. Mixed respiratory failure. Patient uses BiPAP at night. He has some bilateral pleural effusions with chronic obstructive pulmonary disease versus pneumonia. He is not on any antibiotics at this time. I would like to thank you for allowing us to follow with this patient. Dictated by ENDY Lipscomb for MD Davin Kebede#: [id number] cc: ENDY Lipscomb MD [facility]
[2016-12-19] MEDS: TENORMIN PO SCH ×3 (00:50→21:26)
[2016-12-19] MEDS: GEODON IM PRN (00:50)
[2016-12-19] MEDS: HUMALOG SUBQ SCH ×5 (00:50→21:26)
[2016-12-19] MEDS: DUONEB (A & A) INH SCH ×6 (02:15→23:20)
[2016-12-19 06:35] LABS: MANUAL DIFF NEEDED? NO
[2016-12-19 06:45] LABS: BASO% 0.4 % (0.0-0.8); EOS# 0.29 X1000 (0.0-0.7); EOS% 3.5 % (0.0-10.0); LYMPH# 0.82 X1000 (1.2-3.4); LYMPH% 9.9 % (20.5-51.1); MCH 29.3 PG (27-31); MCV 94.5 FL (81-99); MONO# 1.01 X1000 (0.11-0.59); MONO% 12.2 % (1.7-9.3); MPV 12.6 FL (7.4-10.4); PLT 223 X1000 (130-400); RBC 3.07 XMIL (4.7-6.1)
[2016-12-19 07:04] LABS: ALBUMIN 3.4 g/dL (3.5-5.0); CALCIUM 9.2 mg/dL (8.8-10.2); POTASSIUM 4.5 mmol/L (3.5-5.1)
--- NOTE | 2016-12-19 07:22 | Diag Imaging Result Doc PS360 ---
CHEST-1 VIEW - 12/19/2016 INDICATION: SOB TECHNIQUE: COMPARISON: 12/18/2016 FINDINGS: Stable significant cardiomegaly. Stable significant pulmonary vascular congestion. Stable consolidation or effusion at the left lung base occupying about 75%. IMPRESSION: No change from prior. Electronically signed by Yogi Vu 12/19/2016 7:20 AM
[2016-12-19] MEDS: ASPIRIN PO SCH (08:59)
[2016-12-19] MEDS: ZYLOPRIM PO SCH (09:00)
[2016-12-19] MEDS: NS 1,000 ML IV SCH (10:00)
--- NOTE | 2016-12-19 12:51 | PROGRESS NOTE ---
DATE: 12/19/2016 SUBJECTIVE: Mr. Ponce is resting quietly in bed. Head of the bed is elevated. He has just been assisted to eat his breakfast. He denies any chest pain. He states that he is always short of breath upon questioning. Otherwise denies fever or chills. OBJECTIVE: His most recent vital signs, his temperature is 97.5 degrees, blood pressure 96/40, heart rate 75, respirations. He continues on 5 L nasal cannula. Last recorded saturation 93%. He has had 360 in. He has had 1600 out in spite of holding his diuretics at this time. He is still in a negative fluid balance of 1.25 L. LABS: Sodium 142, potassium 4.5, chloride 94, CO2 33, BUN 63, creatinine 3.4, glucose 164. His anion gap is 15. Calcium 9.2, phosphorus 5.2, albumin 3.5. White count 8.28, hemoglobin 9, hematocrit 29, platelet count 223,000. Chest x-ray this a.m. shows no changes. PHYSICAL EXAMINATION: General: This is a 76-year-old white male. He is currently resting in bed. He is in no acute distress though he appears chronically ill. Skin: Warm and dry. HEENT: Normocephalic, atraumatic. Conjunctivae pale. He has MOUNA. Mucous membranes are moist. Neck: Supple. Trachea midline. He does not show any JVD. Cardiovascular: He continues with an irregular irregular rhythm. He remains in atrial fibrillation. He continues with 1+ lower extremity edema. Lungs: He has coarse breath sounds. Poor inspiratory effort. He has mild expiratory wheezes noted. He continues on O2 equal excursion. He does not exhibit any increased work of breathing today. Abdomen: Large round obese soft, nontender. Positive bowel sounds. Extremities: As mentioned 1+ lower extremity edema. He does have some chronic venous stasis. Neurological: He is alert to person only. ASSESSMENT AND PLAN: 1. Acute kidney injury on chronic kidney disease. Patient's creatinine remains stable. He remains on IV fluids with normal saline at 75 mL an hour. His is FENa scores were quite low yesterday indicating that he was volume deficient. We will continue his IV fluids at this time. We appreciate Cardiology managing the fluids secondary to patient having severe diastolic heart failure and increased lower extremity swelling with COPD. 2. Electrolytes. These remain stable. 3. Acid-base balance. Patient continues with mixed alkalosis secondary to #1 and his COPD along with over-diuresis. 4. Anemia. This remains low, but stable. I would like to thank you for allowing us to follow with this patient. Dictated by ENDY Lipscomb for Mainor Escobedo MD cc: ENDY Lipscomb MD [facility]
--- NOTE | 2016-12-19 14:19 | Diag Imaging Result Doc PS360 ---
CHEST-PORTABLE - 12/19/2016 at 1400 INDICATION: dyspnea TECHNIQUE: COMPARISON: 0500 FINDINGS: There is continued increased opacification of the left lung base. No significant volume loss. This is probably a rather large pleural effusion. There is now about 80% opacification on the left side. The right lung remains grossly clear although there is pulmonary vascular congestion. Stable cardiomegaly. IMPRESSION: Continued opacification of the left hemithorax with a large pleural effusion. Electronically signed by Yogi Vu 12/19/2016 2:16 PM
--- NOTE | 2016-12-19 14:27 | PROGRESS NOTE ---
DATE: 12/19/2016 SUBJECTIVE: Today Mr. Ponce refers to be doing fine. He was having a little bit of difficulty breathing. OBJECTIVE: Vital signs: Blood pressure is 129/62, pulse of 77, respiration is 16, temperature 97.8 degrees. The patient was saturating about 93%-89%. General: Mr. Ponce is a 76-year-old male. He was in bed. He seemed to be in mild respiratory distress. HEENT: Mucosa is pink and moist. Anicteric. Acyanotic. Neck: Supple is supple. There is evidence of JVD. Chest air entry is bilaterally reduced. There are bilateral crepitations. Cardiovascular: Regular rate and rhythm. Abdomen: Soft. Extremities: About 2+ pedal edema. TEST PILOT: Patient is awake, alert. He is slightly fidgety but will follow commands. Skin: Has multiple erythematous papular squamous rash all over the extensor surfaces. DIAGNOSTIC DATA: Laboratory Data: WBC is 8.38, hemoglobin is 9.0, platelet count of 223,000. Chemistry is received, sodium is 142, potassium is 4.5, chloride is 94, bicarb is 33. BUN is 63, that is a jump from yesterday which was 54. The creatinine is 3.4, it is also slightly worsened from yesterday. A chest x-ray this morning shows stable cardiomegaly, stable significant pulmonary vascular congestion, stable consolidation or effusion of the left lung base occupying about 75%. ASSESSMENT: 1. Acute mixed respiratory failure. 2. Bilateral pleural effusions. 3. Pneumonia on presentation. Resolved. 4. Acute kidney injury. Studies yesterday did show that the patient has a prerenal acute kidney injury which has been complicated with acute tubular necrosis. At this point , the patient is having now some fluid overload issues, having more difficulty breathing. I will go ahead and stop the fluid for now. I think patient will be now needing ultrafiltration to possibly deal with his volume status since diuretic seems to be worsening the kidney function, and there is no way to get the fluid out. Nephrology is seeing the patient. We will be waiting for further recommendations from both Nephrology and Cardiology. 5. Acute diastolic heart failure. Compensated. 6. Atrial fibrillation. Currently rate controlled. 7. Delirium. Improved. Psoriasis. Noted. So in general I think Mr. Ponce is not retaining a lot of the fluid in his lungs. We will do a stat chest x-ray and follow up on that. We will also discontinue the IV fluids. I think patient has ATN at this point, which will not improve with IV fluid, and will now have to be looking at getting ultrafiltration through dialysis. We will be waiting for Nephrology to see the patient and then we go from there. Of note, patient had a urine output of 1600 yesterday. Today for the whole day he has only had 185 urine output. He has a cumulative positive balance of 8173. cc: Jerrod Yang MD Review: Chest xray looks worse with pleural effusion L >R. urine out is reduced plan: -DC iv Fluid -Give 1x dose of lasix 60mg -put patient on Bipap. -Observe closely. MTDD
[2016-12-19] MEDS ORDERED: LASIX IV ONE (15:35)
[2016-12-19] MEDS: MUCOMYST 20% INH SCH (20:10)
[2016-12-20] MEDS: DUONEB (A & A) INH SCH ×6 (03:35→22:47)
[2016-12-20] MEDS ORDERED: NS 500 ML IV ONE (04:31)
[2016-12-20 04:44] LABS: ALLEN TEST YES; BE 9.5 mmoll (-3.0-3.0); BLOOD TYPE ARTERIAL; DRAW SITE R RADIAL; METHB 0.4 % (0.0-1.5); O2(CT) 10.4 mL/dL (15.0-23.0); PO2(98.6) 69 mmHg (60-100); SAMPLE BLOOD; SAO2 95.6 % (95.0-100.0); THB 7.9 g/dL (11.5-17.4); pH(98.6) 7.39 (7.35-7.45)
[2016-12-20 04:45] LABS: MODALITY CANNULA; PCO2(98.6) 59 mmHg (35-45)
[2016-12-20] MEDS: HUMALOG SUBQ SCH ×4 (06:03→21:25)
[2016-12-20] MEDS ORDERED: NS 250 ML IV ONE (06:25)
[2016-12-20 06:42] LABS: MANUAL DIFF NEEDED? NO
[2016-12-20 07:04] LABS: BASO% 0.4 % (0.0-0.8); EOS# 0.09 X1000 (0.0-0.7); EOS% 1.9 % (0.0-10.0); HEMATOCRIT 26.2 % (42.0-52.0); LYMPH% 14.6 % (20.5-51.1); MCH 29.2 PG (27-31); MCHC 30.5 g/dL (33-37); MCV 95.6 FL (81-99); MONO# 0.73 X1000 (0.11-0.59); MONO% 15.3 % (1.7-9.3); MPV 12.1 FL (7.4-10.4); NEUT% 67.8 % (42.2-75.2); PLT 165 X1000 (130-400); RBC 2.74 XMIL (4.7-6.1)
[2016-12-20 07:08] LABS: CALCIUM 8.9 mg/dL (8.8-10.2); POTASSIUM 4.6 mmol/L (3.5-5.1)
--- NOTE | 2016-12-20 07:23 | Diag Imaging Result Doc PS360 ---
EXAM: CHEST-1 VIEW INDICATION: SOB TECHNIQUE: One view COMPARISON: 12/19/2016 FINDINGS: The opacity at the left mid lung and lower lung zone has improved. This may represent a decreasing pleural effusion with adjacent atelectasis and/or infiltrate. There are increased interstitial markings bilaterally suggesting interstitial edema. There is evidence of pulmonary venous congestion that is essentially stable. There is stable cardiomegaly. IMPRESSION: Interval improvement of the opacity on the left as described. Electronically signed by Chris Soto 12/20/2016 7:21 AM
[2016-12-20] MEDS: MUCOMYST 20% INH SCH ×2 (07:54→19:16)
[2016-12-20] MEDS: TENORMIN PO SCH (08:31)
[2016-12-20] MEDS: ASPIRIN PO SCH (08:31)
[2016-12-20] MEDS: ZYLOPRIM PO SCH (08:31)
[2016-12-20] MEDS: ALBUMIN 25% IV SCH ×2 (11:31→17:41)
--- NOTE | 2016-12-20 12:58 | PROGRESS NOTE ---
DATE: 12/20/2016 PRIMARY CARE PROVIDER: Dr. Jed Win. SUBJECTIVE: Mr. Ponce is a 76-year-old, male lying in bed. He answers questions appropriately. Patient states that his breathing is better today. He is still short of breath but states that this is his baseline. He is in no acute distress at this time. OBJECTIVE: Vital Signs: Temperature 98.5 degrees, heart rate 64, respirations 20, blood pressure 99/40, O2 saturation is 94% on 5 L. General: Patient is lying in bed, in no acute distress. Answers questions appropriately. CV: Irregularly, Irregular with a controlled rate. No murmurs, gallops, or rubs. Pulmonary: Patient has coarse breath sounds and crackles in all lobes bilaterally. No accessory muscle use noted. He is currently on 5 L nasal cannula. GI: Abdomen distended but soft and nontender. Bowel sounds are active in all 4 quadrants. Extremities: 2+ pitting edema in the lower extremities. 2+ pedal and radial pulses. LABS: White blood cell count 4.78, red blood cell 2.74, hemoglobin 8.0 hematocrit 26.2. Platelet count 165. Blood gas: PH 7.39, pCO2 59, PO2 69, HCO3 32,3, base excess 9.5. Chemistry: Sodium is 145 potassium 4.6, chloride 97, carbon dioxide 33, BUN 72, creatinine 4.0. Glucose 153. Calcium 8.9, phosphorus 6.3. IMAGING: Chest x-ray finding: The opacity of the left mid lung and lower lung zone has improved. This may represent a decreasing pleural effusion with adjacent atelectasis and/ or infiltrates. There are increased interstitial markings bilaterally suggesting interstitial edema. There is evidence of pulmonary venous congestion that is essentially stable. There is stable cardiomegaly. Impression: Interval improvement of the opacity of the left lung as described. ASSESSMENT AND PLAN: 1. Acute respiratory failure. Currently stable. We will continue DuoNeb and Mucomyst. We will continue O2 and BiPAP at night. We will continue physical therapy. 2. Bilateral pleural effusions. Left lung showed 80% pleural effusion. Will order US guided thoracentesis.. 3. Pneumonia on presentation. Resolved. 4. Acute kidney injury on chronic renal failure. Nephrology is following. Patient continues to have decreased urine output. 25% albumin q.8 hours x3 ordered. Patient did receive Lasix last night and became hypotensive. 5. Hypotension. The patient became hypotensive last night after receiving Lasix. A 500 mL bolus of normal saline was given. We will give 25% albumin q.8h x3. All hypertensive medications have been discontinued for now. 6. Acute on chronic diastolic heart failure. Improving. Cardiology is following. 7. Chronic atrial fibrillation, rate is controlled. Patient on 81 mg of aspirin daily. 8. Anemia. Hemoglobin is 8.0 today which dropped from 9.0 yesterday. We will continue to trend labs. Will consider blood transfusion if the hemoglobin and hematocrit continues to drop or patient became symptomatic. 9. Hypoalbuminemia, 25% albumin q.8 x3 doses has been ordered. Dictated by ENDY Garzon for Khadar Persaud MD cc: ENDY Garzon MD MTDD
--- NOTE | 2016-12-20 14:30 | PROGRESS NOTE ---
DATE: 12/20/2016 SUBJECTIVE: Mr. Ponce is resting quietly in bed. He is pleasantly confused. He appears chronically ill. He has no acute distress. OBJECTIVE: Vital signs: His most recent vital signs, temperature 98.5 degrees, blood pressure 99/40, heart rate 64, respirations 20. He has been taken off BiPAP. He is on room air at this time with saturations between 90-94%. He has had 1200 in. He has had 730 out. He is only 2 L positive as in the last 72 hours. General: This is a 76-year-old white male. He is currently resting in bed. He appears chronically ill. He is in no acute distress. Skin: Warm and dry. HEENT: Normocephalic, atraumatic. Conjunctivae pale. He has MOUNA. Mucous membranes are moist. Neck: Supple. Trachea midline. No JVD. Cardiovascular: Irregular rate and rhythm. He remains in atrial fibrillation on the monitor. Continues with 1+ lower extremity edema. Coarse breath sounds are noted. Equal excursion with poor inspiratory effort. He is on room air. Abdomen: Large, obese, soft, nontender. Positive bowel sounds. Genitourinary: The patient has had adequate urine out per Curran catheter. His diuretics continue to be held. He remains on normal saline at 75 mL an hour. Neurological: Patient remains quietly confused, alert to person only. LABORATORY: Sodium 145, potassium 4.6, chloride 97, CO2 33, BUN 72, creatinine 4, glucose 153. Anion gap 15. Calcium 8.9, phosphorus 6.3, albumin 3. White count 4.78, hemoglobin 8, hematocrit 26.2, with a platelet count of 165,000. The patient had a fractionated urea score of 10.97%. This continues to indicate that he is prerenal, and we appreciate his IV fluids of normal saline at 75 mL/hour. His ABGs, pH 7.39, CO2 59, PO2 69, bicarb 32.3. This was drawn on BiPAP this a.m. ASSESSMENT AND PLAN: 1. Acute kidney injury on chronic kidney disease stage III-B. Patient continues with elevation of his BUN and creatinine. It has taken a slight bump today. We agree with continuing his IV fluids of normal saline at 75 mL an hour. Appreciate Cardiology's continued monitoring with this IV fluid. He has had no respiratory changes since starting these IV fluids. He has had decent urine output. We will continue to monitor and be available. 2. Electrolytes and acid-base balance. Electrolytes remain stable. Acid-base balance, patient continues with mixed alkalosis with a closing anion gap acidosis. No indications for intervention at this time. 3. Anemia. This remains low, but stable. 4. Pneumonia, with history of diastolic heart failure and chronic obstructive pulmonary disease. This is followed by the Primary Care Team and Cardiology. I would to thank you for allowing us to follow with this patient. Dictated by ENDY Lipscomb for Mainor Escobedo MD cc: ENDY Lipscomb MD
[2016-12-20] MEDS: TYLENOL PO PRN (17:48)
[2016-12-21] MEDS: ALBUMIN 25% IV SCH (01:59)
[2016-12-21] MEDS: DUONEB (A & A) INH SCH ×6 (03:37→22:29)
[2016-12-21] MEDS: HUMALOG SUBQ SCH ×4 (05:59→21:24)
[2016-12-21 07:00] LABS: MANUAL DIFF NEEDED? NO
[2016-12-21] MEDS: MUCOMYST 20% INH SCH ×2 (07:03→19:12)
--- NOTE | 2016-12-21 07:11 | Diag Imaging Result Doc PS360 ---
CHEST-1 VIEW - 12/21/2016 INDICATION: SOB TECHNIQUE: COMPARISON: 12/20/2016 FINDINGS: There is increase in the left pleural effusion which is very large, over 80% of the hemithorax. The right lung remains clear. Stable cardiomegaly and pulmonary vascular congestion. IMPRESSION: Slight increase in the left hemithorax opacification. Electronically signed by Yogi Vu 12/21/2016 7:08 AM
[2016-12-21 07:15] LABS: BASO% 0.2 % (0.0-0.8); EOS# 0.12 X1000 (0.0-0.7); EOS% 2.6 % (0.0-10.0); HEMATOCRIT 24.6 % (42.0-52.0); HEMOGLOBIN 7.5 g/dL (14.0-18.0); LYMPH# 0.72 X1000 (1.2-3.4); LYMPH% 15.4 % (20.5-51.1); MCH 29.2 PG (27-31); MCHC 30.5 g/dL (33-37); MCV 95.7 FL (81-99); MONO# 0.85 X1000 (0.11-0.59); MONO% 18.2 % (1.7-9.3); MPV 12.3 FL (7.4-10.4); NEUT% 63.6 % (42.2-75.2); PLT 146 X1000 (130-400); RBC 2.57 XMIL (4.7-6.1)
[2016-12-21 07:32] LABS: CALCIUM 9.2 mg/dL (8.8-10.2)
[2016-12-21] MEDS: ASPIRIN PO SCH (09:33)
--- NOTE | 2016-12-21 10:55 | PROGRESS NOTE ---
DATE: 12/21/2016 SUBJECTIVE: Patient resting in bed. He is awake. He continues to be confused. He continues to require restraints to prevent him from removing medical devices. OBJECTIVE: Vital Signs: Temperature 98.7 degrees, pulse 67, respiratory rate 20, blood pressure 119/52, intake 720 mL, output 445 mL. PHYSICAL EXAMINATION: General: This is an elderly gentleman resting in bed. He is awake and alert. He is confused but in no acute distress. HEENT: Normocephalic atraumatic. MOUNA, conjunctivae pale. Oral mucosa is dry. Neck: Supple. Trachea midline. Cardiovascular: Regular rhythm. Pulmonary: He continues with some wheezes and rhonchi bilaterally. Decreased breath sounds to the bases. He is on nasal cannula. Abdomen: Round, obese, soft. Positive bowel sounds. : Not inspected. He has a Curran catheter with clear yellow urine. Extremities: He has trace to 1+ pretibial edema. No clubbing or cyanosis. Integumentary: Skin is warm and dry otherwise. LAB DATA: WBC of 8.7, hemoglobin 6.5. Sodium 141, potassium 3.8, chloride 94, CO2 34, BUN 81, creatinine 3.8. ASSESSMENT AND PLAN: 1. Acute on chronic kidney disease stage 3B. His creatinine has improved modestly overnight. We will make no changes to his current regimen. Check labs in the morning. There is no indication for intervention at this time. 2. Electrolytes, acid-base balance, anemia. These have remained stable. His acid-based balance continues with some alkalosis. 3. Pneumonia, diastolic heart failure with COPD followed by primary care and Cardiology. Dictated by ENDY Stoner for Mainor Escobedo MD cc: Mainor Escobedo MD
[2016-12-21 11:43] LABS: INR 1.24; PROTIME 13.2 Seconds (9.2-11.7); PTT 27.9 Seconds (22.0-36.0)
--- NOTE | 2016-12-21 11:56 | PROGRESS NOTE ---
DATE: 12/21/2016 PRIMARY CARE PROVIDER: Dr. Jed Win. SUBJECTIVE: Mr. Ponce is a 76-year-old, male, lying in bed in no acute distress. He states that he feels a little bit worse today with increasing shortness of breath. No other complaints at this time. OBJECTIVE: Vital Signs: Temperature is 97.6 degrees, pulse rate 69, respiratory rate 20, blood pressure 117/47, 92% on 5 L nasal cannula. General: The patient is lying in bed in no acute distress. He answers questions appropriately. CV: Regular rate and rhythm. No murmurs, gallops, or rubs. Pulmonary: Coarse breath sounds and crackles in all lobes bilaterally. No accessory muscle use noted. He is currently on 5 L nasal cannula. GI: Abdomen distended, but soft and nontender. Bowel sounds are active in all 4 quadrants. Extremities: 1+ edema in lower extremities and 2+ pedal and radial pulses. LABS: White blood cell count 4.68, red blood cell 2.57, hemoglobin 7.5, hematocrit 24.6. Chemistry: Sodium 141, potassium 4.0, chloride 94, carbon dioxide 34, anion gap 13, BUN 81, creatinine 3.8, glucose 132, calcium 9.2. IMAGING: Chest x-ray findings: There is an increase in the left pleural effusion which is very large, over 80% of the hemithorax. The right lung remains clear. Stable cardiomegaly and pulmonary vascular congestion. ASSESSMENT AND PLAN: 1. Acute respiratory failure. Continue breathing treatments. Oxygen BiPAP at night. 2. Large left pleural effusion. Patient is being sent for an ultrasound-guided thoracentesis today. 3. Pneumonia on presentation, resolved. 4. Acute kidney injury on chronic kidney disease stage IIIB. Labs slightly improving. Urine output improving. Nephrology following. Allopurinol was discontinued yesterday. 5. Hypotension, resolved. 6. Acute on chronic diastolic heart failure, stable. Cardiology following. 7. Chronic atrial fibrillation. Regular rate and rhythm today. Patient is on 81 mg of aspirin daily. 8. Anemia. The hemoglobin and hematocrit continues to drop. Yesterday, he was 8.0 and 26.2; today he is 7.5 and 24.6. Will transfuse 1 unit of packed red blood cells. Dictated by ENDY Garzon for Khadar Persaud MD cc: ENDY Garzon MD MTDD
--- NOTE | 2016-12-21 12:14 | Diag Imaging Result Doc PS360 ---
CHEST-2 VIEWS - 12/21/2016 at 1200 INDICATION: TO FOLLOW THORACENTESIS TECHNIQUE: Inspiration and expiration COMPARISON: 0540 FINDINGS: There has been successful, essentially complete drainage of the left pleural effusion. No pneumothorax. Stable cardiomegaly and pulmonary vascular congestion. IMPRESSION: Successful drainage of left pleural effusion with no evidence of complication. Electronically signed by Yogi Vu 12/21/2016 12:12 PM
--- NOTE | 2016-12-21 12:15 | Diag Imaging Result Doc PS360 ---
US THORACENTESIS - 12/21/2016 INDICATION: severe left pleural effusion TECHNIQUE: The risks and benefits of the procedure were discussed with the patient. All questions were answered. Written and verbal informed consent was obtained. Overlying skin was prepped and draped in sterile fashion. Anesthesia was achieved with injection of 10 cc of 1% lidocaine. COMPARISON: None FINDINGS: Ultrasound scanning demonstrated a moderate to large left pleural effusion. Thoracentesis catheter was advanced until the return of pleural effusion. 1.6 L was removed. The catheter was removed intact. The patient reported no symptoms from the procedure. IMPRESSION: Successful and uncomplicated ultrasound-guided left thoracentesis. Electronically signed by Yogi Vu 12/21/2016 12:13 PM
[2016-12-21] MEDS: TYLENOL PO PRN (12:31)
[2016-12-21] MEDS ORDERED: NS 500 ML ONE (13:19)
[2016-12-22] MEDS: DUONEB (A & A) INH SCH ×5 (03:37→22:40)
--- NOTE | 2016-12-22 06:06 | Diag Imaging Result Doc PS360 ---
EXAM: CHEST-1 VIEW HISTORY: SOB TECHNIQUE: Portable COMPARISON: 12/21/2016 FINDINGS: There are sternal wires and surgical clips. The heart remains enlarged. Mid left lung infiltrates persist and are unchanged. Mild vascular distention. IMPRESSION: No interval improvement. Electronically signed by Melvin Dahl 12/22/2016 6:03 AM
[2016-12-22 06:27] LABS: BASO% 0.1 % (0.0-0.8); EOS# 0.09 X1000 (0.0-0.7); EOS% 0.9 % (0.0-10.0); HEMOGLOBIN 9.1 g/dL (14.0-18.0); LYMPH# 0.59 X1000 (1.2-3.4); LYMPH% 5.6 % (20.5-51.1); MANUAL DIFF NEEDED? YES; MCH 29.4 PG (27-31); MCHC 31.4 g/dL (33-37); MCV 93.9 FL (81-99); MONO# 0.96 X1000 (0.11-0.59); MONO% 9.1 % (1.7-9.3); MPV 12.4 FL (7.4-10.4); NEUT% 84.3 % (42.2-75.2); PLT 165 X1000 (130-400); RBC 3.09 XMIL (4.7-6.1)
[2016-12-22 06:34] LABS: CALCIUM 8.9 mg/dL (8.8-10.2); POTASSIUM 5.3 mmol/L (3.5-5.1)
[2016-12-22] MEDS: HUMALOG SUBQ SCH ×4 (06:46→21:58)
[2016-12-22 07:18] LABS: BANDS 8 % (0-1); HYPOCHROM 1+; LYMPHS 4 % (21-51); MONO 4 % (1-9)
[2016-12-22] MEDS: MUCOMYST 20% INH SCH ×2 (07:22→19:08)
[2016-12-22] MEDS: ASPIRIN PO SCH (08:27)
--- NOTE | 2016-12-22 10:22 | PROGRESS NOTE ---
DATE: 12/22/2016 SUBJECTIVE: Patient is sitting up in bed. He is on a BiPAP. He is awake and alert. He is requesting to be repositioned in the bed. OBJECTIVE: Vital Signs: Temperature 98.7 degrees, pulse 84, respiratory rate 22 , blood pressure 132/71. Intake 710 mL. Output 1.2 L. PHYSICAL EXAMINATION: General: Elderly gentleman resting in bed. He is awake and alert. He is confused but in no acute distress. HEENT: Normocephalic, atraumatic. MOUNA. He has a BiPAP mask on. His oral mucosa appears dry. Neck supple, thick. Trachea midline. Cardiovascular: Regular rate and rhythm. No murmur or gallop is appreciated. Pulmonary: Continues with decrease in bases. Coarse breath sounds bilaterally. He remains on BiPAP. Decreased breath sounds noted. Abdomen: Round, distended, soft. Positive bowel sounds. : Not inspected. He has a Curran. Extremities: 1 to 2+ pretibial edema. He has vascular changes noted. He is moving his extremities. Integumentary: Skin is warm and dry. LABORATORY DATA: WBC of 10.5, hemoglobin 9.1, hematocrit 29.0, and platelet count of 165,000. Sodium 143, potassium 5.3, CO2 of 35. BUN 79, creatinine 3.9. Calcium 8.9. ASSESSMENT AND PLAN: 1. Lglwt-vy-bstppet kidney disease, stage 3B. Renal function essentially unchanged overnight. BUN slightly improved. Continue to monitor. There is no indication for intervention at this time. We will check labs in the morning. 2. Electrolytes, acid-base balance, anemia. These are stable. Continue to monitor. He does continue with alkalosis. 3. Diastolic heart failure and chronic obstructive pulmonary disease followed by primary and cardiology. Dictated by ENDY Stoner for Mainor Escobedo MD cc: Mainor Escobedo MD [facility]
[2016-12-22] MEDS: TYLENOL PO PRN (10:54)
--- NOTE | 2016-12-22 14:49 | PROGRESS NOTE ---
DATE: 12/22/2016 SUBJECTIVE: The patient reports feeling fine. Denies any fever or chills, and definitely has less shortness of breath. OBJECTIVE: Vital Signs: Temperature 98.7 degrees, heart rate 76, respiratory rate 22, blood pressure 132/71, and O2 saturation 97% on BiPAP machine. General: This is a morbidly obese, chronically ill-looking, and frail 76-year-old male, lying in bed in no acute distress. HEENT: Head is normocephalic and atraumatic. Anicteric sclerae and pale conjunctivae. Mucous membranes moist. Neck: Supple. No JVD noted. No carotid bruits. No lymphadenopathy. No thyromegaly. Cardiovascular: S1 and S2 heard. No murmurs, gallops, or rubs. Regular rate and rhythm. Respiratory: Coarse breath sounds at still present, along with crackles in both lungs. Patient is not using any accessory muscles or having work of breathing. Abdomen: Soft, nontender to palpation. Bowel sounds present. No organomegaly. Extremities: There is 1 to 2+ pedal edema in both lower extremities. Neurologic: Patient is alert and oriented x3. Moves all extremities. LABORATORY DATA: White cell count 10.51, hemoglobin 9.1, hematocrit 29.0, platelets 165,000. BMP unremarkable except BUN 79, creatinine 3.9, and potassium 4.3. ASSESSMENT AND PLAN: 1. Acute respiratory failure secondary to large left pleural effusion. The patient has been subjected to ultrasound-guided thoracentesis and so far we were able to remove 1.6 L of pleural effusion. At this point, the patient reports feeling better. Pulmonary is also following this patient. We will follow their recommendations. 2. Pneumonia on presentation. That condition has resolved. 3. Acute kidney injury. Nephrology is following this patient and at this point, they said that the patient is making good urine and there is no need for intervention, there is no need for hemodialysis at this point. 4. Hypotension. Resolved. 5. Chronic atrial fibrillation. The patient is back to sinus rhythm. Patient is on aspirin 81 mg. We will continue with the same management. Cardiology had been following this patient, but they signed off. 6. Anemia of chronic disease. The hemoglobin dropped from 8.0 to 7.5 yesterday, so he received 1 unit of blood and now the hemoglobin is 10.1. Will continue with the same management. 7. Physical deconditioning. We have placed a consult for Physical Therapy. cc: Khadar Persaud MD
[2016-12-23] MEDS: DUONEB (A & A) INH SCH ×6 (04:03→23:31)
[2016-12-23] MEDS: HUMALOG SUBQ SCH ×4 (06:17→21:54)
[2016-12-23 06:38] LABS: MANUAL DIFF NEEDED? NO
[2016-12-23 07:00] LABS: BASO% 0.2 % (0.0-0.8); EOS# 0.17 X1000 (0.0-0.7); EOS% 3.4 % (0.0-10.0); HEMATOCRIT 26.9 % (42.0-52.0); HEMOGLOBIN 8.3 g/dL (14.0-18.0); LYMPH# 0.67 X1000 (1.2-3.4); LYMPH% 13.4 % (20.5-51.1); MCH 29.2 PG (27-31); MCHC 30.9 g/dL (33-37); MCV 94.7 FL (81-99); MPV 12.5 FL (7.4-10.4); PLT 134 X1000 (130-400); RBC 2.84 XMIL (4.7-6.1)
--- NOTE | 2016-12-23 07:01 | Diag Imaging Result Doc PS360 ---
EXAM: CHEST-1 VIEW HISTORY: SOB TECHNIQUE: Portable AP COMPARISON: 12/22/2016 FINDINGS: The heart remains enlarged. Vascular distention persists. Possible atelectasis or infiltrate in the lingular segment of the left upper lobe. No pleural effusions identified. IMPRESSION: No interval improvement. Electronically signed by Melvin Dahl 12/23/2016 6:58 AM
[2016-12-23 07:06] LABS: CALCIUM 8.7 mg/dL (8.8-10.2); POTASSIUM 3.8 mmol/L (3.5-5.1)
[2016-12-23] MEDS: ASPIRIN PO SCH (08:18)
[2016-12-23] MEDS: TYLENOL PO PRN ×2 (10:46→21:57)
--- NOTE | 2016-12-23 17:59 | PROGRESS NOTE ---
DATE: 12/23/2016 SUBJECTIVE: Patient definitely is more alert, awake, feeling definitely less short of breath. He reports using at home 2-3 L of oxygen by nasal cannula. OBJECTIVE: Vital Signs: Temperature 97.8 degrees, heart rate 76, respiratory rate 16, blood pressure 109/62, O2 saturation 96% on 5 L nasal cannula. General Examination: This is a morbidly obese chronically ill-looking 76-year-old male lying in bed in no acute distress. HEENT: Head is normocephalic, atraumatic. Anicteric sclerae and pale conjunctivae. Mucous membranes moist. Neck: Supple. JVD is not possible to evaluate because of the neck girth. Cardiovascular: S1, S2 heard. No murmurs, gallops, rubs. Regular rate and rhythm. Respiratory: Coarse breath sounds still present in both pulmonary bases. Patient not using any accessory muscles or having work of breathing. Abdomen: Soft, nontender to palpation. Bowel sounds present. No organomegaly. Extremities: No clubbing or cyanosis, 1 to 2+ pitting edema in both lower extremities. Neurological: Patient alert, oriented x3. Moves 4 extremities. LABORATORY DATA: Reviewed. ASSESSMENT AND PLAN: 1. Acute respiratory failure secondary to large left pleural effusion. By now patient is definitely much better. We have removed a few days ago 1.6 L of pleural effusion. Pulmonary following this patient. Will follow his recommendations. The only thing to note is that this patient definitely using more oxygen that he was usually using at home which was 2-3 L and now is 5. 2. Pneumonia on presentation, that condition is resolved. 3. Acute kidney injury. Nephrology following this patient. They are not mentioning they are going to do an intervention on him and he is having good urine output. 4. Hypotension resolved. 5. Chronic atrial fibrillation. By now he is on aspirin and he is back to sinus rhythm. 6. Anemia of chronic disease. We had transfused 2 days ago 1 unit blood because the hemoglobin was dropping now is 8.3. 7. Physical deconditioning. We have placed a consult for physical therapy. We expect to them to see him today cc: Khadar Persaud MD
[2016-12-23] MEDS: MUCOMYST 20% INH SCH (20:02)
[2016-12-24] MEDS: DUONEB (A & A) INH SCH ×5 (03:34→19:07)
[2016-12-24 06:05] LABS: MANUAL DIFF NEEDED? NO
[2016-12-24 06:09] LABS: BASO% 0.3 % (0.0-0.8); EOS# 0.14 X1000 (0.0-0.7); EOS% 3.8 % (0.0-10.0); HEMATOCRIT 27.4 % (42.0-52.0); HEMOGLOBIN 8.3 g/dL (14.0-18.0); LYMPH# 0.61 X1000 (1.2-3.4); LYMPH% 16.6 % (20.5-51.1); MCH 28.7 PG (27-31); MCHC 30.3 g/dL (33-37); MCV 94.8 FL (81-99); MONO# 0.52 X1000 (0.11-0.59); MONO% 14.1 % (1.7-9.3); MPV 11.7 FL (7.4-10.4); NEUT% 65.2 % (42.2-75.2); PLT 135 X1000 (130-400); RBC 2.89 XMIL (4.7-6.1)
[2016-12-24] MEDS: HUMALOG SUBQ SCH ×4 (06:09→20:39)
[2016-12-24 06:58] LABS: CALCIUM 8.8 mg/dL (8.8-10.2); POTASSIUM 4.1 mmol/L (3.5-5.1)
--- NOTE | 2016-12-24 07:08 | Diag Imaging Result Doc PS360 ---
EXAM: CHEST-1 VIEW HISTORY: SOB TECHNIQUE: AP portable erect at 0540 COMMENT: There is some slight increase in pneumatization of the left lower lobe compared to 12/23/2016. There is still near complete opacification of the left lung. There is perihilar pulmonary edema in the right lung. IMPRESSION: Questionable improvement in atelectasis of the left lower lobe. Electronically signed by Jules De León 12/24/2016 7:06 AM
[2016-12-24] MEDS: MUCOMYST 20% INH SCH ×2 (07:39→19:07)
[2016-12-24] MEDS: ASPIRIN PO SCH (09:02)
--- NOTE | 2016-12-24 11:50 | PROGRESS NOTE ---
DATE: 12/24/2016 SUBJECTIVE: Mr. Ponce is resting quietly in bed. Head of the bed is elevated. He has just been bathed. He denies any chest pain. No increased work of breathing. States that he is feeling well today. OBJECTIVE: His most recent vital signs, his last temperature 97.9 degrees, blood pressure 121/59, heart rate 78, respirations 20. He is on 2 L nasal cannula. Last recorded saturation is 99%. He has had 944 in, he has had 1 L out per Curran catheter. LABS: Sodium 144, potassium 4.1, chloride 98, CO2 35. BUN 73, creatinine is 2.6, glucose 132, calcium is 8.8. Patient's white count 3.68, hemoglobin 8.3, hematocrit 27.4 with a platelet count of 135,000. Chest x-ray completed this a.m. indicates a questionable improvement in his atelectasis of the left lower lobe. Continues with perihilar pulmonary edema in the right lung, questionable pneumonia. PHYSICAL EXAMINATION: General: This is a 76-year-old white male. He is currently resting in bed. He is in no acute distress. He appears chronically ill. Skin: Warm and dry. HEENT: Normocephalic, atraumatic. He has MOUNA. Patient is on 2 L nasal cannula. Neck : Thick unable to determine JVD. Cardiovascular: Regular rate and rhythm. No murmur or gallop. Lungs: Patient has inspiratory and expiratory wheezes. He remains on O2 equal excursion. Abdomen: Large, round, soft, nontender. Positive bowel sounds. Extremities: Have 1+ lower extremity edema into the abdominal hip area. Otherwise he has trace edema to the lower extremities. Neurological: He is more alert and awake today. ASSESSMENT AND PLAN: 1. 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 Patient's renal function has continued to improve. BUN has continued to improve with holding of his diuretics. He has had IV fluids infusing. He has responded well. 2. Electrolytes, acid-base balance and anemia. These remain stable. 3. Diastolic heart failure associated with chronic obstructive pulmonary disease. Followed by the primary care team with cardiology's assistance. I would to thank you for allowing us to follow with this patient. Seen, data reviewed, discussed with Tomas Ramírez on 12/24/16. I agree with the above assessment and plan of care. rg Dictated by ENDY Lipscomb for Mainor Escobedo MD cc: ENDY Lipscomb MD [facility]
[2016-12-24] MEDS: TYLENOL PO PRN ×2 (16:35→20:38)
[2016-12-24] MEDS ORDERED: RESTORIL PO ONE (20:07)
[2016-12-25] MEDS: DUONEB (A & A) INH SCH ×7 (00:26→23:00)
[2016-12-25] MEDS: HUMALOG SUBQ SCH ×3 (06:06→16:08)
[2016-12-25 06:28] LABS: MANUAL DIFF NEEDED? NO
[2016-12-25 06:40] LABS: BASO% 0.5 % (0.0-0.8); EOS# 0.16 X1000 (0.0-0.7); EOS% 4.4 % (0.0-10.0); HEMATOCRIT 29.9 % (42.0-52.0); LYMPH# 0.46 X1000 (1.2-3.4); LYMPH% 12.6 % (20.5-51.1); MCH 28.8 PG (27-31); MCHC 30.1 g/dL (33-37); MCV 95.8 FL (81-99); MONO# 0.53 X1000 (0.11-0.59); MONO% 14.5 % (1.7-9.3); MPV 11.7 FL (7.4-10.4); PLT 151 X1000 (130-400); RBC 3.12 XMIL (4.7-6.1)
[2016-12-25 07:06] LABS: CALCIUM 8.8 mg/dL (8.8-10.2); POTASSIUM 4.3 mmol/L (3.5-5.1)
[2016-12-25] MEDS: MUCOMYST 20% INH SCH ×2 (07:25→19:45)
--- NOTE | 2016-12-25 07:43 | Diag Imaging Result Doc PS360 ---
EXAM: CHEST-1 VIEW INDICATION: SOB TECHNIQUE: One view COMPARISON: 12/24/2016 FINDINGS: The left hemithorax is now completely opacified. There was subtotal opacification on the previous study. Perihilar pulmonary edema is grossly stable. No new consolidations on the right are identified. Cardiac silhouette is stable. IMPRESSION: Interval complete opacification of the left hemithorax. Electronically signed by Chris Soto 12/25/2016 7:41 AM
[2016-12-25] MEDS: ASPIRIN PO SCH (08:16)
--- NOTE | 2016-12-25 10:45 | PROGRESS NOTE ---
DATE: 12/25/2016 TIME SEEN: 0815 hours. SUBJECTIVE: Mr. Ponce is resting quietly in bed. He states that he feels great. He is off oxygen at this time. He denies chest pain. No increased work of breathing. OBJECTIVE: His most recent vital signs: Temperature 97.3 degrees, blood pressure 121/49, heart rate 83, respirations 19. He had been on 5 L nasal cannula during the night with his last recorded saturation of 96%. He has had 960 in; 1600 out per Curran. LABORATORIES: His most recent labs: Sodium 143, potassium 4.3, chloride 98, CO2 35, BUN 53, creatinine 2.2, glucose 150. Anion gap 10, calcium 8.8. White count 3.65, hemoglobin 9, hematocrit 29.9, with a platelet count of 151,000. PHYSICAL EXAMINATION: General: This is a 76-year-old white male. He is in no acute distress. He appears chronically ill, although his skin is warm and dry. HEENT: Normocephalic, atraumatic. Conjunctiva is pink. He has MOUNA. Mucous membranes are moist. Neck: Supple. Trachea midline. No JVD. Cardiovascular: Regular rate and rhythm. He has a soft systolic murmur. No gallop. Lungs: Clear to auscultation anterior with inspiratory wheeze anterior. He remains on room air. Abdomen: Obese, soft, nontender. Genitourinary: Not inspected. Patient has Curran catheter in place. Extremities: He has no edema at this time. Neurological: He is alert and oriented to person and to place. ASSESSMENT AND PLAN: 1. Acute on chronic kidney disease stage 3B-4. Patient's renal function continues to improve. He continues to have his diuretics held. His intravenous fluids have been stopped. He continues to be monitored by cardiology. No indications for intervention. 2. Electrolytes and acid-base balance and anemia. These all remain stable. I would like to thank you for allowing us to follow with this patient. Seen, data reviewed, discussed with Tomas Ramírez on 12/25/16. I agree with the above assessment and plan of care. rg Dictated by ENDY Lipscomb for Mainor Escobedo MD cc: ENDY Lipscomb MD [facility]
--- NOTE | 2016-12-25 14:06 | PROGRESS NOTE ---
DATE: 12/25/2016 SUBJECTIVE: The patient is feeling well, sitting by the side of bed, eating breakfast. Denies having any fever or chills. Denied having any nausea, vomiting, or diarrhea. OBJECTIVE: Vital Signs: Blood pressure 151/77, pulse of 84, respirations 21, temperature of 98.2 degrees, saturation of 100% on 3 L nasal cannula. General Appearance: Obese, white male, in no acute distress. HEENT: Anicteric. Clear conjunctivae. Neck: Supple. No JVD. No bruit. Cardiovascular: S1, S2. Normal rate and rhythm. Normal murmurs, rubs, or gallops. Pulmonary: Clear to auscultation bilaterally. GI: Soft, nontender, nondistended. Normoactive bowel sounds. Musculoskeletal: No clubbing, cyanosis, or edema. Integument: The patient has diffuse psoriasis on most of his an extensor surface surfaces. LABORATORY: White count of sat 3.65, hemoglobin 9.0, hematocrit of 29.9, platelets of 151,000. Chemistry: Sodium 143, potassium 4.3, chloride 98, bicarb 35, BUN 53, creatinine 2.2, glucose of 150. Chest x-ray on the showed interval complete opacification of the left hemisphere. No consolidations. ASSESSMENT AND PLAN: This is a 76-year-old white male admitted to the hospital for acute respiratory failure. 1. Acute respiratory failure. The patient is doing well. He is on BiPAP at night and oxygen during the day. He appears to be comfortable. Chest x-ray showed no changes. Will stop ordering daily chest x-ray. Will continue with nebulizer p.r.n. and oxygen as needed. We will continue to wean his oxygen. We will continue physical therapy. 2. Pulmonary opacifications. Appears to be ongoing for the patient. Pulmonary is following. 3. Diabetes type 2. Continue sliding scale insulin for now. 4. Code status. The patient is a DNR. We will not do intubation or chest compression. 5. Disposition. The patient can go once social work can make arrangements. 6. Acute renal failure. This is improving. Nephrology is following.
[2016-12-26] MEDS: HUMALOG SUBQ SCH ×3 (03:17→11:30)
[2016-12-26] MEDS: DUONEB (A & A) INH SCH ×2 (03:45→07:29)
[2016-12-26 06:50] LABS: CALCIUM 8.8 mg/dL (8.8-10.2); POTASSIUM 4.4 mmol/L (3.5-5.1)
[2016-12-26] MEDS: MUCOMYST 20% INH SCH (07:29)
[2016-12-26] MEDS: ASPIRIN PO SCH (08:11)
--- NOTE | 2016-12-26 11:58 | Diag Imaging Result Doc PS360 ---
EXAM: CHEST-1 VIEW HISTORY: SOB TECHNIQUE: Portable upright AP COMPARISON: 12/25/2016 FINDINGS: Interval decrease in the size of the left-sided pleural effusion. The left hemithorax is no longer completely opacified. There is air in the left upper lobe. Pulmonary edema remains. There are sternal wires. IMPRESSION: Overall interval improvement with reexpansion of the upper portion of the left upper lobe.. Electronically signed by Melvin Dahl 12/26/2016 11:56 AM
--- NOTE | 2016-12-26 12:44 | PROGRESS NOTE ---
DATE: 12/26/2016 SUBJECTIVE: The patient is feeling well. He is still on 5 L of oxygen. No fever. No chills. No nausea, vomiting, or diarrhea. OBJECTIVE: Vital signs: Blood pressure 145/55, pulse of 96, respirations 98.2 degrees. Saturating 98% on 5 L nasal cannula. General appearance: Obese white male, in moderate distress. HEENT: Anicteric sclerae. Clear conjunctivae. Neck: Supple. No JVD. No bruit. Cardiovascular: S1, S2. Normal rate and rhythm. No murmur, rubs, or gallops. Pulmonary: Coarse crackles bilaterally. Abdomen: Soft, nontender, nondistended. Normoactive bowel sounds. Musculoskeletal: No clubbing, cyanosis, or edema. ASSESSMENT AND PLAN: This is a 76-year-old white male, admitted to the hospital for acute respiratory failure with gastrointestinal bleed. We are still having difficulty weaning him off of the oxygen. We will send the patient to a LTAC to do rehab and try to get him off of oxygen. Blood pressures have been under better control and his renal function has also been improving.
--- NOTE | 2016-12-26 13:32 | DISCHARGE SUMMARY ---
ADMISSION DATE: 11/28/2016 DISCHARGE DATE: 12/26/2016 CONSULTATIONS: 1. Dr. Mainor Escobedo with nephrology. 2. Dr. Cristiano Ramirez with cardiology. 3. Dr. Mookie Cabrera with urology. 4. Dr. Josephine Cardoso with pulmonology. PERTINENT PROCEDURES: 1. Renal ultrasound negative exam. 2. Chest CT showed small bilateral pleural effusions. Worsening infiltrate or atelectasis in the left upper lobe. Cardiomegaly. 3. Echocardiogram with moderate aortic stenosis with mild aortic regurgitation, mild mitral regurgitation, moderate tricuspid regurgitation with mild pulmonary hypertension. EF 55%. Moderate biatrial enlargement. 4. Bilateral venous Doppler showed no deep or superficial venous thrombosis. 5. Follow up renal ultrasound. Normal. 6. Ultrasound-guided thoracentesis performed on 12/21/2016 where 1.6 L fluid removed. 7. Follow-up chest x-ray shows overall interval improvement with re-expansion of the upper portion of the left upper lobe. DISCHARGE DIAGNOSES: 1. Acute respiratory failure secondary to large left pleural effusion status post ultrasound- guided thoracentesis. The patient remains on BiPAP at night and oxygen nasal cannula during the day. Chest x-ray does show improvement. He was followed by pulmonology. Continue with nebulizers as needed, as well as supplemental oxygen. The patient being transferred to long- term acute care. 2. Pulmonary opacifications ongoing, again being followed by pulmonology. 3. Diabetes mellitus type 2. Continue the patient's sliding scale insulin. 4. Code status. The patient is a [id number] level 2. Does not wish for intubation and/or compression. 5. Acute renal failure, improving. Followed by Dr. Escobedo. 6. Pneumonia on presentation, resolved. 7. Hypotension, resolved. 8. Chronic atrial fibrillation. Sinus rhythm. 9. Anemia of chronic disease. 10. Physical deconditioning. Continue with physical therapy. The patient being transferred to long-term acute care. 11. Acute diastolic heart failure, compensated. 12. Delirium, resolved. 13. Cirrhosis noted. HOSPITAL COURSE: Briefly, Mr. Ponce is a 76-year-old male, who carries a past medical history of COPD, obesity, recent community-acquired pneumonia, CAD, chronic atrial fibrillation, type 2 diabetes, B 12 deficiency, non small cell lung cancer reported to [facility] on 11/23/2016 with community-acquired pneumonia. At the time of his admission, he could not give any type of history secondary to mental status and respiratory status. The weekend before the patient was admitted, he was having some progressively worse weakness and worsening shortness of breath. He became confused and his respiratory status had worsened. He hd an appointment to see Dr. Escobedo for a follow up, but he could not make it because of his breathing. Dr. Escobedo recommended that the patient come to the ED for immediate stabilization. When he got to the ER, he had labs and diagnostics done. His creatinine was noted to be 7.1 with a BUN of 77. Chest x-ray showed pulmonary edema and worsening atelectasis and/or pneumonia. Also had a potassium of 6.4. Dr. Escobedo was notified and the patient was started on hemodialysis. He was placed on BiPAP for respiratory failure. Blood cultures were ordered, as well as started on broad-spectrum antibiotics and was admitted to ICU at [facility]. Cardiology recommended another echo, as well as a CT of the chest, which were small bilateral pleural effusions, as well as worsening infiltrates and atelectasis in the left lobe, as well as cardiomegaly. The patient had some afib with RVR treated by cardiology, his atrial fibrillation was reasonably controlled. The patient still required higher amounts of oxygen on BiPAP while in the ICU. He was monitored daily for further need for dialysis by nephrology on a daily basis. His renal function continues to improve. His diuretics have been held. His IV fluids have been stopped. There were no further indications for intervention by nephrology. His electrolytes and acid base and anemia all remained stable. The patient did undergo an ultrasound-guided thoracentesis on 12/21/2016 secondary to severe left pleural effusion. His followup chest x-ray on the day of his discharge showed overall interval improvement with re-expansion of the upper portion of the left lobe, secondary to him still requiring BiPAP at night, as well as up to 5 L or more during the day. Digital Sales Manager was involved to find placement for the patient. He will be transferred to [facility] in [place]. VITAL SIGNS: At the time of his discharge, temperature is 98.2 degrees, heart rate 96, respiration 17, blood pressure is 145/55, O2 is 98% on 5 L nasal cannula. The patient's pneumonia did completely resolve and is currently off all antibiotics. DISCHARGE DIET: Diabetic with Nepro shakes t.i.d. DISCHARGE MEDICATIONS PER DR. JARA: 1. Tylenol 650 mg p.o. q. 4 hours p.r.n. 2. DuoNebs 3 mL inhaled RT q. 4 hours. 3. Allopurinol 100 mg p.o. daily. 4. Aspirin 81 mg p.o. daily. 5. Glipizide 10 mg p.o. b.i.d. 6. Geodon 20 mg IM q. 6 hours p.r.n. DISPOSITION: The patient is being discharged to LT in [place]. DISCHARGE TIME: Discharge time was greater than 40 minutes. Dictated by ENDY Messina for Jonas Jara MD cc: Jed Win MD Addendum: I personally evaluated and examined the patient in conjunction to the ESOL TEACHER ASSISTANT and agreed with her disposition. See my PN for exam MTDD
[2016-12-26 14:31] VITALS: BP 111/35
== END 2016-12-26 15:35 ==
LOC: ED 09:43 → SUATTDRO 12:47 → EDIPHOLD 12:47 → ICU 14:56 → 3N 12-15 10:19
PROVIDERS: ATTEND Internal Medicine